=== PATIENT | male | born 1985 | race American Indian/Alaskan Native ===

== ENCOUNTER 2017-05-27 00:40 | Emergency (ER) | payer OTHER ==
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
[2017-05-27] MEDS ORDERED: MOTRIN PO ONE (06:50)
[2017-05-27 07:13] VITALS: BP 103/79
[2017-05-27] MEDS ORDERED: BOOSTRIX IM ONE (07:36)
[2017-05-27] MEDS ORDERED: BENADRYL IM ONE (07:36)
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
== END 2017-05-27 10:06 | disposition home or self-care (01) ==
LOC: ED 00:40
DX: S01.81XA Laceration without foreign body of other part of head, initial encounter (principal); S20.211A Contusion of right front wall of thorax, initial encounter; S39.012A Strain of muscle, fascia and tendon of lower back, initial encounter; Z88.8 Allergy status to other drugs, medicaments and biological substances; Y04.0XXA Assault by unarmed brawl or fight, initial encounter; Y93.89 Activity, other specified; Y99.8 Other external cause status; Y92.89 Other specified places as the place of occurrence of the external cause
CPT/HCPCS: 12013; 70450; 71046; 72100; 72125; 90471; 90715; 96372; 99284; J1200

== ENCOUNTER 2018-04-19 07:15 | Emergency (ER) | payer OTHER ==
--- NOTE | 2018-04-19 07:41 | Emergency Department Report ---
ED Psych HPI - General Stated Complaint: MH Time Seen by Provider: 04/19/18 07:20 Source: patient Mode of arrival: Ambulatory Limitations: No Limitations - History of Present Illness Initial Comments: 32-year-old male with a past medical history of seizures, schizoaffective disor umesh, and psychosis presents to the Hospital complains of suicidal ideation. Patient resides at [facility] and people overheard him talking to himself and expressing suicidal thoughts. Patient does not seem to have a plan at this time. He says about 4-5 months ago he cut his arm with a razor in attempt to kill himself. He is having auditory hallucinations and feels like his suicidal thoughts or building since last night. He denies physical complaints. He hasn't had his medications in 24 hours because he ran out but otherwise has been compliant. - Related Data Home Medications Medication Instructions Recorded Confirmed Last Taken TEGretol 04/19/18 Unknown Trihexyphenidyl [Artane Tab] 5 mg PO BID 04/19/18 04/19/18 Unknown ZyPREXA 04/19/18 Unknown buPROPion [Wellbutrin] 100 mg PO BID 04/19/18 04/19/18 Unknown Allergies Allergy/AdvReac Type Severity Reaction Status Date / Time benztropine [From Cogentin] Allergy Unknown Verified 04/19/18 07:38 diphenhydramine Allergy Unknown Verified 04/19/18 07:38 [From Benadryl] fluphenazine [From Prolixin] Allergy Unknown Verified 04/19/18 07:38 haloperidol [From Haldol] Allergy Unknown Verified 05/27/17 02:29 ziprasidone [From Geodon] Allergy Unknown Verified 04/19/18 07:38 ED Review of Systems ROS: Stated complaint: MH Other details as noted in HPI Comment: All other systems reviewed and negative ED Past Medical Hx - Past Medical History Hx Seizures: Yes Hx Psychiatric Treatment: (Psychosis) - Social History Smoking Status: Unknown if ever smoked Substance Use Type: Alcohol - Medications Home Medications: Home Medications Medication Instructions Recorded Confirmed Last Taken Type TEGretol 04/19/18 Unknown History Trihexyphenidyl [Artane Tab] 5 mg PO BID 04/19/18 04/19/18 Unknown History ZyPREXA 04/19/18 Unknown History buPROPion [Wellbutrin] 100 mg PO BID 04/19/18 04/19/18 Unknown History ED Physical Exam - Other Other exam information: General: No limitations, patient is alert in no acute distress Head exam: Atraumatic, normocephalic Eyes exam: Normal appearance ENT: Moist mucous membrane Neck exam: Normal inspection, full range of motion, no meningismus nontender Respiratory exam: Clear to auscultation bilateral, no wheezes, rales, crackles Cardiovascular: Normal rate and rhythm, normal heart sounds Abdomen: Soft, nondistended, and nontender, with normal bowel sounds, no rebound, or guarding Extremity: Full range of motion normal inspection no deformity Back: Normal Inspection, full range of motion, no tenderness Neurologic: Alert, oriented x3, cranial nerves intact, no motor or sensory deficit Psychiatric: Hyperverbal, cooperative, psychosis Skin: Warm, dry, intact ED Course Vital Signs 04/19/18 08:49 Temperature 98.7 F Pulse Rate 107 H Respiratory 18 Rate Blood Pressure 145/86 [Left] O2 Sat by Pulse 99 Oximetry ED Medical Decision Making - Lab Data Result diagrams: 04/19/18 07:54 04/19/18 07:54 Lab Results 04/19/18 04/19/18 04/19/18 Range/Units 07:54 07:54 07:54 WBC 5.3 (4.5-11.0) K/mm3 RBC 4.68 (3.65-5.03) M/mm3 Hgb 14.8 (11.8-15.2) gm/dl Hct 43.6 (35.5-45.6) % MCV 93 (84-94) fl MCH 32 (28-32) pg MCHC 34 (32-34) % RDW 13.4 (13.2-15.2) % Plt Count 187 (140-440) K/mm3 Lymph % (Auto) 24.3 (13.4-35.0) % Leslie % (Auto) 10.8 H (0.0-7.3) % Eos % (Auto) 9.5 H (0.0-4.3) % Baso % (Auto) 0.9 (0.0-1.8) % Lymph # 1.3 (1.2-5.4) K/mm3 Leslie # 0.6 (0.0-0.8) K/mm3 Eos # 0.5 H (0.0-0.4) K/mm3 Baso # 0.0 (0.0-0.1) K/mm3 Seg Neutrophils % 54.5 (40.0-70.0) % Seg Neutrophils # 2.9 (1.8-7.7) K/mm3 Sodium 141 (137-145) mmol/L Potassium 3.9 (3.6-5.0) mmol/L Chloride 103.7 (98-107) mmol/L Carbon Dioxide 28 (22-30) mmol/L Anion Gap 13 mmol/L BUN 9 (9-20) mg/dL Creatinine 1.0 (0.8-1.5) mg/dL Estimated GFR > 60 ml/min BUN/Creatinine Ratio 9 % Glucose 75 (75-100) mg/dL Calcium 8.7 (8.4-10.2) mg/dL Urine Color (Yellow) Urine Turbidity (Clear) Urine pH (5.0-7.0) Ur Specific [place] (1.003-1.030) Urine Protein (Negative) mg/dL Urine Glucose (UA) (Negative) mg/dL Urine Ketones (Negative) mg/dL Urine Blood (Negative) Urine Nitrite (Negative) Urine Bilirubin (Negative) Urine Urobilinogen (<2.0) mg/dL Ur Leukocyte Esterase (Negative) Urine WBC (Auto) (0.0-6.0) /HPF Urine RBC (Auto) (0.0-6.0) /HPF Salicylates < 0.3 L (2.8-20.0) mg/dL Urine Opiates Screen Urine Methadone Screen Acetaminophen (10.0-30.0) ug/mL Ur Barbiturates Screen Ur Phencyclidine Scrn Ur Amphetamines Screen U Benzodiazepines Scrn Urine Cocaine Screen U Marijuana (THC) Screen Drugs of Abuse Note Plasma/Serum Alcohol (0-0.07) % 04/19/18 04/19/18 04/19/18 Range/Units 07:54 07:54 09:44 WBC (4.5-11.0) K/mm3 RBC (3.65-5.03) M/mm3 Hgb (11.8-15.2) gm/dl Hct (35.5-45.6) % MCV (84-94) fl MCH (28-32) pg MCHC (32-34) % RDW (13.2-15.2) % Plt Count (140-440) K/mm3 Lymph % (Auto) (13.4-35.0) % Leslie % (Auto) (0.0-7.3) % Eos % (Auto) (0.0-4.3) % Baso % (Auto) (0.0-1.8) % Lymph # (1.2-5.4) K/mm3 Leslie # (0.0-0.8) K/mm3 Eos # (0.0-0.4) K/mm3 Baso # (0.0-0.1) K/mm3 Seg Neutrophils % (40.0-70.0) % Seg Neutrophils # (1.8-7.7) K/mm3 Sodium (137-145) mmol/L Potassium (3.6-5.0) mmol/L Chloride (98-107) mmol/L Carbon Dioxide (22-30) mmol/L Anion Gap mmol/L BUN (9-20) mg/dL Creatinine (0.8-1.5) mg/dL Estimated GFR ml/min BUN/Creatinine Ratio % Glucose (75-100) mg/dL Calcium (8.4-10.2) mg/dL Urine Color Yellow (Yellow) Urine Turbidity Clear (Clear) Urine pH 6.0 (5.0-7.0) Ur Specific [place] 1.018 (1.003-1.030) Urine Protein <15 mg/dl (Negative) mg/dL Urine Glucose (UA) Neg (Negative) mg/dL Urine Ketones Neg (Negative) mg/dL Urine Blood Neg (Negative) Urine Nitrite Neg (Negative) Urine Bilirubin Neg (Negative) Urine Urobilinogen < 2.0 (<2.0) mg/dL Ur Leukocyte Esterase Neg (Negative) Urine WBC (Auto) < 1.0 (0.0-6.0) /HPF Urine RBC (Auto) < 1.0 (0.0-6.0) /HPF Salicylates (2.8-20.0) mg/dL Urine Opiates Screen Urine Methadone Screen Acetaminophen < 5.0 L (10.0-30.0) ug/mL Ur Barbiturates Screen Ur Phencyclidine Scrn Ur Amphetamines Screen U Benzodiazepines Scrn Urine Cocaine Screen U Marijuana (THC) Screen Drugs of Abuse Note Plasma/Serum Alcohol < 0.01 (0-0.07) % 04/19/18 Range/Units 09:44 WBC (4.5-11.0) K/mm3 RBC (3.65-5.03) M/mm3 Hgb (11.8-15.2) gm/dl Hct (35.5-45.6) % MCV (84-94) fl MCH (28-32) pg MCHC (32-34) % RDW (13.2-15.2) % Plt Count (140-440) K/mm3 Lymph % (Auto) (13.4-35.0) % Leslie % (Auto) (0.0-7.3) % Eos % (Auto) (0.0-4.3) % Baso % (Auto) (0.0-1.8) % Lymph # (1.2-5.4) K/mm3 Leslie # (0.0-0.8) K/mm3 Eos # (0.0-0.4) K/mm3 Baso # (0.0-0.1) K/mm3 Seg Neutrophils % (40.0-70.0) % Seg Neutrophils # (1.8-7.7) K/mm3 Sodium (137-145) mmol/L Potassium (3.6-5.0) mmol/L Chloride (98-107) mmol/L Carbon Dioxide (22-30) mmol/L Anion Gap mmol/L BUN (9-20) mg/dL Creatinine (0.8-1.5) mg/dL Estimated GFR ml/min BUN/Creatinine Ratio % Glucose (75-100) mg/dL Calcium (8.4-10.2) mg/dL Urine Color (Yellow) Urine Turbidity (Clear) Urine pH (5.0-7.0) Ur Specific [place] (1.003-1.030) Urine Protein (Negative) mg/dL Urine Glucose (UA) (Negative) mg/dL Urine Ketones (Negative) mg/dL Urine Blood (Negative) Urine Nitrite (Negative) Urine Bilirubin (Negative) Urine Urobilinogen (<2.0) mg/dL Ur Leukocyte Esterase (Negative) Urine WBC (Auto) (0.0-6.0) /HPF Urine RBC (Auto) (0.0-6.0) /HPF Salicylates (2.8-20.0) mg/dL Urine Opiates Screen Presumptive negative Urine Methadone Screen Presumptive negative Acetaminophen (10.0-30.0) ug/mL Ur Barbiturates Screen Presumptive negative Ur Phencyclidine Scrn Presumptive negative Ur Amphetamines Screen Presumptive negative U Benzodiazepines Scrn Presumptive negative Urine Cocaine Screen Presumptive negative U Marijuana (THC) Screen Presumptive negative Drugs of Abuse Note Disclamer Plasma/Serum Alcohol (0-0.07) % - Differential Diagnosis suicidal, homicidal, psychosis Critical Care Time: No Critical care attestation.: If time is entered above; I have spent that time in minutes in the direct care of this critically ill patient, excluding procedure time. ED Disposition Clinical Impression: Acute psychosis, Suicidal ideation, Medical clearance for psychiatric admission Disposition: DC/TX-65 PSY HOSP/PSY UNIT Is pt being admited?: No Condition: Stable Time of Disposition: 14:58 (awaiting acceptance)
[2018-04-19 08:09] LABS: Basophils % (Auto) 0.9 % (0.0-1.8); Eosinophils # (Auto) 0.5 K/mm3 (0.0-0.4); Eosinophils % (Auto) 9.5 % (0.0-4.3); Hematocrit 43.6 % (35.5-45.6); Hemoglobin 14.8 gm/dl (11.8-15.2); Lymphocytes # (Auto) 1.3 K/mm3 (1.2-5.4); Lymphocytes % (Auto) 24.3 % (13.4-35.0); Mean Corpuscular HGB Conc 34 % (32-34); Mean Corpuscular Volume 93 fl (84-94); Monocytes # (Auto) 0.6 K/mm3 (0.0-0.8); Monocytes % (Auto) 10.8 % (0.0-7.3); Platelet Count 187 K/mm3 (140-440); Red Blood Count 4.68 M/mm3 (3.65-5.03); Red Cell Distribution Width 13.4 % (13.2-15.2)
[2018-04-19 08:23] LABS: BUN/Creatinine Ratio 9; Blood Urea Nitrogen 9 mg/dL (9-20); Calcium 8.7 mg/dL (8.4-10.2); Hemolysis Index 13
[2018-04-19 09:55] LABS: Bilirubin,Urine NEG (Negative); Blood,Urine NEG (Negative); Color,Urine Yellow (Yellow); Protein,Urine <15 mg/dL mg/dL (Negative); RBC,Urine < 1.0 /HPF (0.0-6.0); Urobilinogen,Urine < 2.0 mg/dL (<2.0); WBC,Urine < 1.0 /HPF (0.0-6.0)
[2018-04-19 10:04] LABS: Amphetamine Screen,Urine PRESUMPTIVE NEGATIVE; Benzodiazepines Screen,Urine PRESUMPTIVE NEGATIVE; Cannabinoid Screen,Urine PRESUMPTIVE NEGATIVE; Cocaine Screen,Urine PRESUMPTIVE NEGATIVE; Methadone Screen,Urine PRESUMPTIVE NEGATIVE; Opiate Screen,Urine PRESUMPTIVE NEGATIVE
[2018-04-19] MEDS: ARTANE PO SCH ×2 (11:00→22:08)
[2018-04-19] MEDS: WELLBUTRIN PO SCH ×2 (11:28→22:08)
[2018-04-20 08:19] VITALS: BP 112/68
[2018-04-20] MEDS: ARTANE PO SCH (10:49)
[2018-04-20] MEDS: WELLBUTRIN PO SCH (10:49)
== END 2018-04-20 12:00 ==
LOC: ED 07:15
DX: F23 Brief psychotic disorder (principal); F29 Unspecified psychosis not due to a substance or known physiological condition; Z88.8 Allergy status to other drugs, medicaments and biological substances; Z88.7 Allergy status to serum and vaccine
CPT/HCPCS: 36415; 80048; 80307; 81001; 85025; 99285; G0480; 80320

== ENCOUNTER 2019-07-30 16:51 | Emergency (ER) | payer SELFPAY ==
[2019-07-30 18:17] LABS: Bilirubin,Urine NEG (Negative); Blood,Urine NEG (Negative); Color,Urine Yellow (Yellow); Protein,Urine <15 mg/dL mg/dL (Negative); Urobilinogen,Urine < 2.0 mg/dL (<2.0)
[2019-07-30 18:24] LABS: Amphetamine Screen,Urine PRESUMPTIVE NEGATIVE; Benzodiazepines Screen,Urine PRESUMPTIVE NEGATIVE; Cannabinoid Screen,Urine PRESUMPTIVE NEGATIVE; Cocaine Screen,Urine PRESUMPTIVE NEGATIVE; Methadone Screen,Urine PRESUMPTIVE NEGATIVE; Opiate Screen,Urine PRESUMPTIVE NEGATIVE
[2019-07-30 18:42] LABS: Hematocrit 45.5 % (35.5-45.6); Hemoglobin 15.2 gm/dl (11.8-15.2); Mean Corpuscular HGB Conc 33 % (32-34); Mean Corpuscular Volume 94 fl (84-94); Platelet Count 208 K/mm3 (140-440); Red Blood Count 4.85 M/mm3 (3.65-5.03)
[2019-07-30 18:59] LABS: BUN/Creatinine Ratio 8; Blood Urea Nitrogen 9 mg/dL (9-20); Calcium 9.6 mg/dL (8.4-10.2); Hemolysis Index 21
[2019-07-30 20:08] LABS: Total Cells Counted 100
[2019-07-30 20:09] LABS: Platelet Estimate Consistent w Auto; RBC Morphology Normal
[2019-07-30] MEDS ORDERED: LORazepam 2 MG/ML VIAL ONE (20:49)
[2019-07-30] MEDS ORDERED: LORazepam 2 MG/ML VIAL IM ONE (20:50)
[2019-07-30] MEDS: LORazepam 2 MG/ML VIAL IV ONE ×2 (20:51→20:55)
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
[2019-07-31] MEDS: LORazepam 2 MG/ML VIAL IM PRN (13:29)
[2019-07-31] MEDS ORDERED: LORazepam 2 MG/ML VIAL IM ONE ×2 (18:14→20:51)
[2019-07-31] MEDS ORDERED: diphenhydrAMINE 50 MG/ML VIAL ONE (18:14)
[2019-07-31] MEDS ORDERED: ETOMIDATE 20 MG/10 ML INJ IV ONE (21:13)
[2019-07-31] MEDS ORDERED: ROCURONIUM 50 MG/5 ML INJ IV ONE (21:14)
[2019-08-01 07:43] VITALS: BP 118/70
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
[2019-08-01] MEDS ORDERED: HALOPERIDOL LACTATE 5 MG/1 ML INJ IM PRN (11:00)
[2019-08-01] MEDS ORDERED: PROMETHAZINE 25 MG TAB PO SCH (11:00)
[2019-08-01] MEDS: LORazepam 2 MG/ML VIAL IM PRN ×2 (11:02→17:33)
[2019-08-01] MEDS ORDERED: PROMETHAZINE 25 MG TAB PO ONE (12:06)
[2019-08-01] MEDS ORDERED: traZODone 50 MG TAB PO SCH ×2 (13:00→22:00)
[2019-08-01] MEDS ORDERED: TRIHEXYPHENIDYL 2 MG TAB PO SCH (14:00)
--- NOTE | 2019-08-01 16:40 | Emergency Department Report ---
Blank Doc - Documentation Documentation: Pt has been accepted by [facility] EMS here to transport patient.
[2019-08-01] MEDS ORDERED: DIVALPROEX DR 500 MG TAB PO SCH (22:00)
== END 2019-08-01 17:35 ==
LOC: EEVIPCON 16:51 → ED 16:51
DX: F23 Brief psychotic disorder (principal); R56.9 Unspecified convulsions; J45.909 Unspecified asthma, uncomplicated; F17.200 Nicotine dependence, unspecified, uncomplicated; Z79.899 Other long term (current) drug therapy; Z88.8 Allergy status to other drugs, medicaments and biological substances
CPT/HCPCS: 36415; 80048; 80307; 81001; 85007; 85025; 96372; 99285; J1200; J1630; J2060; Q0169; 80320; G0480

== ENCOUNTER 2019-08-14 23:04 | Emergency (ER) | payer SELFPAY ==
[2019-08-14 23:57] LABS: Benzodiazepines Screen,Urine PRESUMPTIVE NEGATIVE; Methadone Screen,Urine PRESUMPTIVE NEGATIVE; Opiate Screen,Urine PRESUMPTIVE NEGATIVE
[2019-08-14 23:58] LABS: Bilirubin,Urine NEG (Negative); Blood,Urine NEG (Negative); Color,Urine Yellow (Yellow); Mucus,Urine FEW /HPF; Protein,Urine <15 mg/dL mg/dL (Negative); Urobilinogen,Urine < 2.0 mg/dL (<2.0)
[2019-08-15 00:15] LABS: BUN/Creatinine Ratio 18; Blood Urea Nitrogen 18 mg/dL (9-20); Calcium 9.2 mg/dL (8.4-10.2); Hemolysis Index 13
[2019-08-15 00:16] LABS: Basophils # (Auto) 0.1 K/mm3 (0.0-0.1); Basophils % (Auto) 1.2 % (0.0-1.8); Eosinophils % (Auto) 12.1 % (0.0-4.3); Hematocrit 43.4 % (35.5-45.6); Hemoglobin 14.8 gm/dl (11.8-15.2); Lymphocytes # (Auto) 2.2 K/mm3 (1.2-5.4); Lymphocytes % (Auto) 26.9 % (13.4-35.0); Mean Corpuscular HGB Conc 34 % (32-34); Mean Corpuscular Volume 93 fl (84-94); Monocytes # (Auto) 0.9 K/mm3 (0.0-0.8); Monocytes % (Auto) 11.3 % (0.0-7.3); Platelet Count 208 K/mm3 (140-440); Red Blood Count 4.69 M/mm3 (3.65-5.03); Red Cell Distribution Width 13.9 % (13.2-15.2)
[2019-08-15 00:16] LABS: Amphetamine Screen,Urine PRESUMPTIVE POSITIVE; Cannabinoid Screen,Urine PRESUMPTIVE POSITIVE; Cocaine Screen,Urine PRESUMPTIVE POSITIVE
--- NOTE | 2019-08-15 03:47 | Emergency Department Report ---
ED Psych HPI - General Chief Complaint: Psych Stated Complaint: HEARING VOICES Time Seen by Provider: 08/15/19 03:31 Source: patient Mode of arrival: Ambulatory - History of Present Illness Initial Comments: Patient is a 34-year-old male that presents emergency room with complaints of suicidal ideations, depression, hallucinations. Patient states his symptoms started 2 weeks ago. Patient states she has been taking his medications for 2 weeks. Patient states that he symptoms are becoming more strong and worsening. Patient states that he is having auditory and visual hallucinations. Patient states he is also anxious. Patient states he is feels paranoid and that his mo od keeps changing. Patient states that he has a history of depression psychosis and anxiety. Patient denies homicidal ideations. Patient states his been using drugs lately. Patient states he is using cocaine and marijuana. Patient denies recent travel. Patient denies recent international travel. Patient denies exposure to the novel coronavirus. Patient denies sick contacts. Patient denies fever and chills. Patient denies cough. Patient denies diarrhea. Patient denies coming in contact with anybody with symptoms of the novel coronavirus. MD Complaint: suicidal ideation, feels depressed -: Sudden Associated Psychiatric Symptoms: depression, suicidal ideation, racing thoughts, auditory hallucinations, visual hallucinations History of same: Yes Quality: constant Improves With: none Worsens With: none Context: not taking psychiatric Associated Symptoms: denies: confusion, headache, shortness of breath, nausea, vomiting, syncope, insomnia If Self Harm: admits thoughts of, has plan - Related Data Home Medications Medication Instructions Recorded Confirmed Last Taken buPROPion [Wellbutrin] 350 mg PO QDAY 04/19/18 08/01/19 07/30/19 trihexyphenidyL [Artane Tab] 5 mg PO BID 04/19/18 08/01/19 07/30/19 Divalproex [Naveed ESPINOZA] 250 mg PO 08/01/19 07/30/19 Allergies Allergy/AdvReac Type Severity Reaction Status Date / Time benztropine [From Cogentin] Allergy Unknown Verified 04/19/18 07:38 diphenhydramine Allergy Unknown Verified 04/19/18 07:38 [From Benadryl] fluphenazine [From Prolixin] Allergy Unknown Verified 04/19/18 07:38 haloperidol [From Haldol] Allergy Unknown Verified 05/27/17 02:29 ziprasidone [From Geodon] Allergy Unknown Verified 04/19/18 07:38 ED Review of Systems ROS: Stated complaint: HEARING VOICES Other details as noted in HPI Constitutional: denies: chills, fever Eyes: denies: eye pain, eye discharge, vision change ENT: denies: ear pain, throat pain Respiratory: denies: cough, shortness of breath, wheezing Cardiovascular: denies: chest pain, palpitations Endocrine: no symptoms reported Gastrointestinal: denies: abdominal pain, nausea, diarrhea Genitourinary: denies: urgency, dysuria Musculoskeletal: denies: back pain, joint swelling, arthralgia Skin: denies: rash, lesions Neurological: denies: headache, weakness, paresthesias Psychiatric: anxiety, depression, auditory hallucinations, visual hallucinations, suicidal thoughts Hematological/Lymphatic: denies: easy bleeding, easy bruising ED Past Medical Hx - Past Medical History Previous Medical History?: Yes Hx Seizures: Yes Hx Psychiatric Treatment: (Psychosis, DEPRESSION, ANXIETY) Hx Asthma: Yes - Surgical History Past Surgical History?: No - Family History Family history: no significant - Social History Smoking Status: Current Every Day Smoker Substance Use Type: Alcohol, Cocaine, Marijuana, Methamphetamines - Medications Home Medications: Home Medications Medication Instructions Recorded Confirmed Last Taken Type buPROPion [Wellbutrin] 350 mg PO QDAY 04/19/18 08/01/19 07/30/19 History trihexyphenidyL [Artane Tab] 5 mg PO BID 04/19/18 08/01/19 07/30/[address] [DepaKOTE DR] 250 mg PO 08/01/19 07/30/19 History ED Physical Exam - General Limitations: No Limitations General appearance: alert, in no apparent distress - Head Head exam: Present: atraumatic, normocephalic - Eye Eye exam: Present: normal appearance - ENT ENT exam: Present: mucous membranes moist - Neck Neck exam: Present: normal inspection - Respiratory Respiratory exam: Present: normal lung sounds bilaterally. Absent: respiratory distress - Cardiovascular Cardiovascular Exam: Present: regular rate, normal rhythm. Absent: systolic murmur, diastolic murmur, rubs, gallop - GI/Abdominal GI/Abdominal exam: Present: soft, normal bowel sounds - Rectal Rectal exam: Present: deferred - Extremities Exam Extremities exam: Present: normal inspection - Back Exam Back exam: Present: normal inspection - Neurological Exam Neurological exam: Present: alert, oriented X3 - Psychiatric Psychiatric exam: Present: anxious, suicidal ideation - Expanded Psychiatric Exam Expanded Focused psych exam: Present: pressured speech, internal stimuli, paranoid, restlessness, loose associations - Skin Skin exam: Present: warm, dry, intact, normal color. Absent: rash ED Course Vital Signs 08/14/19 23:09 Temperature 97.8 F Pulse Rate 76 Respiratory 20 Rate Blood Pressure 132/80 O2 Sat by Pulse 96 Oximetry - Reevaluation(s) Reevaluation #1: Patient placed on a 1013. I discussed all results and clinical findings with patient. I discussed plan of care with patient. Patient agrees with plan of care. Patient had labs done. Patient is medically clear. Patient is final disposition will come from our psychiatric team. 08/15/19 03:42 ED Medical Decision Making - Lab Data Result diagrams: 08/14/19 23:38 08/14/19 23:38 - Medical Decision Making Patient is a 34-year-old male that presents emergency room with complaints of suicidal ideations, drug use, acute psychosis. Patient placed on a 1013. Patient had a plan to kill himself by overdose. Patient's labs were done and were unremarkable except for polysubstance on his urine drug screen. Patient is medically cleared and his final disposition will come from our psychiatry team. - Differential Diagnosis Psychosis, suicidal ideation, depression, noncompliance. Drug use Critical care attestation.: If time is entered above; I have spent that time in minutes in the direct care of this critically ill patient, excluding procedure time. ED Disposition Clinical Impression: Acute psychosis, Anxiety and depression, Suicidal ideation, Polysubstance abuse Is pt being admited?: No Does the pt Need Aspirin: No Condition: Stable Referrals: PRIMARY CARE, [Primary Care Provider] - 3-5 Days Time of Disposition: 03:47
[2019-08-15 19:56] VITALS: BP 103/56
--- NOTE | 2019-08-16 11:25 | Consultation ---
History of Present Illness - Reason for Consult Consult date: 08/16/19 Reason for consult: SI with plan to OD - History of Present Psychiatric Illness Vance Robles is a 34y/o male patient who presented to the ER for suicidal ideation with a plan to overdose. During my interview with the patient today. He is lying on the stretcher asleep with linen pulled over his head. He arouses after calling his name multiple times. He is oriented x 3. He makes fair eye contact. The patient states he is "depressed." He says "I messed up." The patient states he been doing "cocaine, ecstasy and marijuana." He says "I keep getting opportunities to do right and keep messing up." The patient denies SI/HI at present, stating, "I don't feel suicidal right now. But I was when I came in two days ago." The patient says he "hears voices telling me to do things." He says he has a history of "psychosis disorder, bipolar and anxiety." The patient states he normally takes "wellbutrin and risperdal" but says he's "been off the meds." He says, "I have a problem taking my meds. I don't know why." He denies any past suicide attempts. He also denies any current outpatient treatment. PAST PSYCHIATRIC HISTORY: Diagnoses: psychosis disorder, bipolar and anxiety Suicide attempts or Self-harm behavior: Denies Prior psychiatric hospitalizations: Yes Substance Abuse history: meth, ecstacy, cocaine, marijuana Previous psychiatric medications tried: wellbutrin and risperidal Outpatient treatment: Not currently PAST MEDICAL HISTORY: None reported Family Psychiatric History: None reported or documented SOCIAL HISTORY Current living status: Homeless Highest level of education: 9th grade Employment Status: Unemployed Marital status: Single Legal history: Denies History of abuse: Denies REVIEW OF SYSTEMS Constitutional: Negative for weight loss ENT: Negative for stridor Respiratory: Negative for cough or hemoptysis All other systems reviewed and are negative MENTAL STATUS EXAMINATION General Appearance: Dressed appropriately Behavior: Calm, cooperative. Fair eye contact Mood: "depressed" Affect: congruent with stated mood Speech: Normal tone and pace Thought Process: Goal directed Thought Content: Suicidal Ideation: Denies Homicidal Ideation: Denies Hallucinations: Auditory Delusions: none elicited Insight and Judgment: Limited Memory/Cognition: Limited Assessment Substance Induce Mood Disorder Bipolar Disorder, Current Episode Depressed, with Psychotic Features Plan MEDICATIONS: Risperidone 0.5mg po BID to decrease psychosis Prozac 10mg po daily to decrease underlying depression Trazodone 50mg po qhs to induce sleep Melatonin 5mg po qhs prn insomnia Depakote DR 125mg po BID Risks, benefits and alternatives of medications discussed with the patient, questions answered and consent obtained from patient. PSYCHOTHERAPY: Supportive psychotherapy provided MEDICAL: Per primary team DELIRIUM PRECAUTIONS: Please re-orient patient frequently, keep lights on during the day, and minimize benzodiazepines and opiates as these medications could worsen patient's confusion. PLANT ETIOLOGIST: Per Medical team. DISPOSITION: The patient meets the requirement for acute inpatient psychiatric hospitalization at this time. He may transfer to an acute psychiatric facility once medically clear. The treatment plan was explained to the patient, including benefits and side effects of medications, he verbalizes understanding and agreement of plan. Will continue to follow the patient until he is transferred or his condition improves enough for discharge Thank you for the consult. Please contact with any questions or concerns. Medications and Allergies Allergies Allergy/AdvReac Type Severity Reaction Status Date / Time benztropine [From Cogentin] Allergy Unknown Verified 04/19/18 07:38 diphenhydramine Allergy Unknown Verified 04/19/18 07:38 [From Benadryl] fluphenazine [From Prolixin] Allergy Unknown Verified 04/19/18 07:38 haloperidol [From Haldol] Allergy Unknown Verified 05/27/17 02:29 ziprasidone [From Geodon] Allergy Unknown Verified 04/19/18 07:38 Home Medications Medication Instructions Recorded Confirmed Last Taken Type buPROPion [Wellbutrin] 350 mg PO QDAY 04/19/18 08/01/19 07/30/19 History trihexyphenidyL [Artane Tab] 5 mg PO BID 04/19/18 08/01/19 07/30/[address] [DepaKOTE DR] 250 mg PO 08/01/19 07/30/19 History Mental Status Exam - Vital signs Last Vital Signs Temp 97.7 F 08/16/19 10:19 Pulse 72 08/16/19 10:19 Resp 16 08/16/19 10:19 BP 101/65 08/16/19 10:19 Pulse Ox 99 08/16/19 10:19 Results Result Diagrams: 08/14/19 23:38 08/14/19 23:38 All other labs normal.
[2019-08-16] MEDS ORDERED: risperiDONE 0.25 MG TAB PO SCH (12:00)
[2019-08-16] MEDS ORDERED: FLUoxetine 10 MG TAB PO SCH (12:00)
[2019-08-16] MEDS ORDERED: DIVALPROEX DR 125 MG TAB PO SCH (12:00)
[2019-08-16] MEDS ORDERED: MELATONIN 5 MG TAB PO PRN (22:00)
[2019-08-16] MEDS ORDERED: traZODone 50 MG TAB PO SCH (22:00)
== END 2019-08-16 12:48 ==
LOC: ED 23:04
DX: F23 Brief psychotic disorder (principal); F41.8 Other specified anxiety disorders; R45.851 Suicidal ideations; F19.10 Other psychoactive substance abuse, uncomplicated; R56.9 Unspecified convulsions; J45.909 Unspecified asthma, uncomplicated; F17.200 Nicotine dependence, unspecified, uncomplicated; F12.10 Cannabis abuse, uncomplicated; F14.10 Cocaine abuse, uncomplicated; F15.10 Other stimulant abuse, uncomplicated; Z79.899 Other long term (current) drug therapy; Z88.8 Allergy status to other drugs, medicaments and biological substances
CPT/HCPCS: 36415; 80048; 80307; 80320; 81001; 85025; G0480

== ENCOUNTER 2020-01-22 16:19 | Emergency (ER) | payer SELFPAY | END 2020-01-22 19:00 | disposition left against medical advice (07) | LOC: ED 16:19 | DX: R45.851 Suicidal ideations (principal); Z53.21 Procedure and treatment not carried out due to patient leaving prior to being seen by health care provider ==

== ENCOUNTER 2020-01-23 18:01 | Emergency (ER) | payer SELFPAY ==
[2020-01-23 18:51] LABS: Basophils # (Auto) 0.1 K/mm3 (0.0-0.1); Eosinophils # (Auto) 0.5 K/mm3 (0.0-0.4); Eosinophils % (Auto) 7.4 % (0.0-4.3); Hematocrit 46.2 % (35.5-45.6); Hemoglobin 15.6 gm/dl (11.8-15.2); Lymphocytes # (Auto) 1.2 K/mm3 (1.2-5.4); Lymphocytes % (Auto) 19.2 % (13.4-35.0); Mean Corpuscular HGB Conc 34 % (32-34); Mean Corpuscular Volume 96 fl (84-94); Monocytes # (Auto) 0.6 K/mm3 (0.0-0.8); Monocytes % (Auto) 8.9 % (0.0-7.3); Platelet Count 219 K/mm3 (140-440); Red Blood Count 4.82 M/mm3 (3.65-5.03); Red Cell Distribution Width 14.6 % (13.2-15.2)
[2020-01-23 19:15] LABS: BUN/Creatinine Ratio 10; Blood Urea Nitrogen 11 mg/dL (9-20); Calcium 9.5 mg/dL (8.4-10.2); Hemolysis Index 5
--- NOTE | 2020-01-24 00:42 | Emergency Department Report ---
HPI - General Chief Complaint: Psych Time Seen by Provider: 01/24/20 00:31 - HPI HPI: This is a 34-year-old -Tristanian male who presents to the emergency department with complaint of depression and suicidal ideations. Patient says he has a plan to overdose on medication in order to harm himself. Patient says that he took an unknown amount of Benadryl 2 days ago. He says that he has a diagnosed history of schizoaffective disorder, depression, anxiety, and "psychotic disorder." He does not follow with any particular psychiatrist or therapist. He also has a history of asthma and a seizure disorder. Patient says that he has been feeling depressed as his family just told him "that I burned all of my bridges and I cannot come home." Patient also says that he is grieving, although he did not say for what. Patient admits to some recent i llicit drug use with both marijuana and methamphetamines but says it has been about 48 hours since he last used any drugs. ED Past Medical Hx - Past Medical History Previous Medical History?: Yes Hx Seizures: Yes Hx Psychiatric Treatment: Yes (Psychosis, DEPRESSION, ANXIETY) Hx Asthma: Yes - Surgical History Past Surgical History?: No - Social History Smoking Status: Current Every Day Smoker Substance Use Type: Alcohol, Cocaine, Marijuana, Methamphetamines - Medications Home Medications: Home Medications Medication Instructions Recorded Confirmed Last Taken Type buPROPion [Wellbutrin] 350 mg PO QDAY 04/19/18 08/01/19 07/30/19 History trihexyphenidyL [Artane Tab] 5 mg PO BID 04/19/18 08/01/19 07/30/19 History Divalproex [DepLeny ESPINOZA] 250 mg PO 08/01/19 07/30/19 History ED Review of Systems ROS: Stated complaint: PSYCH Other details as noted in HPI Comment: All other systems reviewed and negative Constitutional: denies: fever Respiratory: denies: cough, shortness of breath Cardiovascular: denies: chest pain, palpitations Gastrointestinal: denies: abdominal pain Musculoskeletal: denies: back pain, arthralgia Neurological: denies: headache, weakness Psychiatric: suicidal thoughts. denies: auditory hallucinations, visual hallucinations Physical Exam - Physical Exam Vital Signs: Vital Signs 01/23/20 01/24/20 18:09 00:25 Temperature 98 F 97.4 F L Pulse Rate 117 H 89 Respiratory 18 16 Rate Blood Pressure 156/117 131/88 [Right] O2 Sat by Pulse 99 100 Oximetry Physical Exam: GENERAL: The patient is well-developed well-nourished. HENT: Normocephalic. Atraumatic. Patient has moist mucous membranes. EYES: Extraocular motions are intact. NECK: Supple. Trachea is midline. CHEST/LUNGS: Clear to auscultation. There is no respiratory distress noted. HEART/CARDIOVASCULAR: Regular. There is no tachycardia. ABDOMEN: Abdomen is soft, nontender. Patient has normal bowel sounds. SKIN: Skin is warm and dry. NEURO: The patient is awake, alert, and oriented. The patient is cooperative. Normal speech. MUSCULOSKELETAL: There is no tenderness or deformity. ED Course Vital Signs 01/23/20 01/24/20 18:09 00:25 Temperature 98 F 97.4 F L Pulse Rate 117 H 89 Respiratory 18 16 Rate Blood Pressure 156/117 131/88 [Right] O2 Sat by Pulse 99 100 Oximetry ED Medical Decision Making - Lab Data Result diagrams: 01/23/20 18:24 01/23/20 18:24 - Medical Decision Making This patient presents to the emergency department with complaint of depression and suicidal ideations with a plan to overdose on medication. For this reason the patient has been made a 1013. Patient's labs are unremarkable including CBC, metabolic panel, blood alcohol level and urine drug screen. Vital signs have been reassuring. Patient will be seen by the psychiatric team in the morning for further disposition. He is medically cleared for psychiatric placement. Critical Care Time: No Critical care attestation.: If time is entered above; I have spent that time in minutes in the direct care of this critically ill patient, excluding procedure time. ED Disposition Clinical Impression: Suicidal ideations, Anxiety and depression Schizoaffective disorder Qualifiers: Schizoaffective disorder type: unspecified Qualified Code(s): F25.9 - Schizoaffective disorder, unspecified Disposition: DC/TX-65 PSY HOSP/PSY UNIT Is pt being admited?: No Time of Disposition: 01:56
[2020-01-24 00:56] LABS: Bilirubin,Urine NEG (Negative); Blood,Urine NEG (Negative); Color,Urine Yellow (Yellow); Mucus,Urine 2+ /HPF; RBC,Urine < 1.0 /HPF (0.0-6.0); Urobilinogen,Urine < 2.0 mg/dL (<2.0)
[2020-01-24 00:58] LABS: Amphetamine Screen,Urine PRESUMPTIVE NEGATIVE; Benzodiazepines Screen,Urine PRESUMPTIVE NEGATIVE; Cannabinoid Screen,Urine PRESUMPTIVE NEGATIVE; Cocaine Screen,Urine PRESUMPTIVE NEGATIVE; Methadone Screen,Urine PRESUMPTIVE NEGATIVE; Opiate Screen,Urine PRESUMPTIVE NEGATIVE
[2020-01-24] MEDS ORDERED: LORazepam 2 MG/ML VIAL ONE (02:44)
[2020-01-24] MEDS ORDERED: LORazepam 2 MG/ML VIAL IM ONE (02:48)
[2020-01-25] MEDS ORDERED: LORazepam 1 MG TAB PO ONE (09:50)
--- NOTE | 2020-01-25 10:16 | Consultation ---
History of Present Illness - Reason for Consult Consult date: 01/25/20 Reason for consult: MHE Requesting physician: LORIE OROZCO - History of Present Psychiatric Illness Per ED Provider: This is a 34-year-old -Lao male who presents to the emergency department with complaint of depression and suicidal ideations. Patient says he has a plan to overdose on medication in order to harm himself. Patient says that he took an unknown amount of Benadryl 2 days ago. He says that he has a diagnosed history of schizoaffective disorder, depression, anxiety, and "psychotic disorder." He does not follow with any particular psychiatrist or therapist. He also has a history of asthma and a seizure disorder. Patient says that he has been feeling depressed as his family just told him "that I burned all of my bridges and I cannot come home." Patient also says that he is grieving, although he did not say for what. Patient admits to some recent illicit drug use with both marijuana and methamphetamines but says it has been about 48 hours since he last used any drugs. Per MHA: Pt is a 34 year old AA male; Per triage note, "Pt. presents c/o SI. Pt. states he planned to OD. Pt. pulled a large bottle of Diphenhydramine and an RX bottle of Bupropion from his pocket. Pt. handed meds over to me and they were put in pt. belongings bag, labeled and put near nurses station. Pt. states he has been "popping them them since yesterday," referring to the Benadryl." Pt carries a diagnosis of Schizoaffective Disorder. Pt has no current mental health providers; last treatment was "a few months ago," at [facility] where pt receives outpatient treatment. Pt has not been compliant with medications or following up with outpatient. "I ran out of my meds." Pt has had multiple inpatient admissions in the past. Pt is alert and oriented x 4. Pt denies AH or VH currently, but pt reports in the past he has had AH and VH. Pt is calm and cooperative but pt reports depression. Pt denies any thoughts or plans to harm others.Pt endorses active SI with a plan to overdose. Pt came in with his medications and turned them over to the triage nurse explaining that he had all of these medications with an intent to kill himself. Pt reports that he has been ingesting benadryl over the past few days. Pt reports grief and lack of stable housing as the contributing factors to SI. Pt reports substance use of THC and meth with last use being 48 hours ago; however, pt tox is negative for any substance use. Pt is currently homeless; pt reports that he was recently told by his family that he has burned all his bridge and unable to return home. HPI Patient is a 34-year-old single homeless unemployed -Lao male with p ast psychiatric history of schizophrenia, PTSD, depression, anxiety and bipolar disorder who presents with chief complaint of suicidal ideations. Patient is well-known to me from prior encounters, today patient endorses taking 2 pills of Benadryl attempt to overdose says he suicidal because of the rehab program was attending prior at ejected him out due to noncompliance and continued substance use, also reports a family rejection due to his behavior and all of this made him feel helpless and hopeless and would like to get mental health evaluation and treatment for stability so he can go back to get a long-term placement. PAST PSYCHIATRIC HISTORY: Diagnoses: Bipolar, schizophrenia, PTSD, depression, anxiety, Suicide attempts or Self-harm behavior: Yes patient at attempted to strangulate self and cut self Prior psychiatric hospitalizations: Yes multiple episodes Substance Abuse history: Years ago Previous psychiatric medications tried: Wellbutrin Depakote Outpatient treatment: Yes, sees Dr. Salomon PAST MEDICAL HISTORY: None reported Family Psychiatric History: None reported or documented SOCIAL HISTORY Marital Status: Single Living Arrangements: Homeless Employment Status: Unemployed Access to guns/weapons: None reported Education: Ninth grade dropout History of Abuse: None reported Legal History: Yes specific details unknown REVIEW OF SYSTEMS Constitutional: Negative for weight loss ENT: Negative for stridor Respiratory: Negative for cough or hemoptysis All other systems reviewed and are negative MENTAL STATUS EXAMINATION General Appearance and Behavior: Age appropriate, good hygiene, wearing appropriate clothes,, good eye contact Cooperation: Participating/engaged, but Guarded Psychomotor Behavior: Increased Psychomotor agitation Mood: depressed Affect and affective range: irritable, labile Thought Process: Circumstantial, Illogical, Pressured, Thought Content: Hallucinations including auditory. Speech: Increased rate and rhythm, pressured, loud volume. Intellectual Functioning: Average Suicidal Ideation: SI Homicidal Ideation: Denies HI Impulse Control: Impaired Insight and Judgment: Limited insight and judgment, Impaired Memory: Normal Attention: Divided attention impaired Orientation: Alert, anxious, Assessment and Plan - Psychiatric problem (3) Schizoaffective disorder Current Visit: Yes Status: Acute RECOMMENDATIONS MEDICATIONS: Risks, benefits and alternatives of medications discussed with the patient, questions answered and consent obtained from patient. PSYCHOTHERAPY: Supportive psychotherapy provided MEDICAL: Per primary team DELIRIUM PRECAUTIONS: Please re-orient patient frequently, keep lights on during the day, and minimize benzodiazepines and opiates as these medications could worsen patient's confusion. 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 Please contact with any questions and/or concerns. Medications and Allergies Allergies Allergy/AdvReac Type Severity Reaction Status Date / Time benztropine [From Cogentin] Allergy Unknown Verified 04/19/18 07:38 fluphenazine [From Prolixin] Allergy Unknown Verified 04/19/18 07:38 haloperidol [From Haldol] Allergy Unknown Verified 05/27/17 02:29 ziprasidone [From Geodon] Allergy Unknown Verified 04/19/18 07:38 Home Medications Medication Instructions Recorded Confirmed Last Taken Type buPROPion [Wellbutrin] 100 mg PO BID 04/19/18 01/24/20 07/30/19 History trihexyphenidyL [Artane Tab] 5 mg PO BID 04/19/18 01/24/20 07/30/19 History Mental Status Exam - Vital signs Last Vital Signs Temp 97.8 F 01/25/20 08:17 Pulse 74 01/25/20 08:17 Resp 20 01/25/20 08:17 BP 129/75 01/25/20 08:17 Pulse Ox 96 01/25/20 08:17 Results Result Diagrams: 01/23/20 18:24 01/23/20 18:24 All other labs normal. Assessment and Plan - Psychiatric problem (1) Schizoaffective disorder Current Visit: Yes Status: Acute Qualifiers: Schizoaffective disorder type: unspecified Qualified Code(s): F25.9 - Schizoaffective disorder, unspecified
[2020-01-25] MEDS ORDERED: buPROPion 100 MG TAB PO SCH (14:00)
[2020-01-25] MEDS: buPROPion SR 150 MG TAB PO SCH (16:32)
[2020-01-26 04:31] VITALS: BP 102/64
--- NOTE | 2020-01-26 10:24 | Progress Note ---
Subjective - Reason for Consult Consult date: 01/26/20 Reason for consult: MHE Requesting physician: LORIE OROZCO - Chief Complaint Chief complaint: Psych Progress Patient seen this AM, says he no longer have suicidal thoughts, homicidal thoughts and no hallucinations but needs help with getting peggy ID, housing issues and also getting a job. REVIEW OF SYSTEMS Constitutional: Negative for weight loss ENT: Negative for stridor Respiratory: Negative for cough or hemoptysis All other systems reviewed and are negative MENTAL STATUS EXAMINATION General Appearance and Behavior: Age appropriate, good hygiene, wearing appropriate clothes,, good eye contact Cooperation: Participating/engaged Psychomotor Behavior: normal Mood: good Affect and affective range: congruent with mood Thought Process: Logical Thought Content: within reality Speech:Normal rhythm, rate and volume Intellectual Functioning: Average Suicidal Ideation: SI Homicidal Ideation: Denies HI Impulse Control: unimpaired Insight and Judgment: normal Memory: Normal Attention: Divided attention impaired Orientation: Alert, anxious, Assessment and Plan - Psychiatric problem (3) Schizoaffective disorder Current Visit: Yes Status: Acute RECOMMENDATIONS MEDICATIONS: Risks, benefits and alternatives of medications discussed with the patient, questions answered and consent obtained from patient. PSYCHOTHERAPY: Supportive psychotherapy provided MEDICAL: Per primary team DELIRIUM PRECAUTIONS: Please re-orient patient frequently, keep lights on during the day, and minimize benzodiazepines and opiates as these medications could worsen patient's confusion. 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 Please contact with any questions and/or concerns. Mental Status Exam - Vital signs Last Vital Signs Temp 97.9 F 01/26/20 02:29 Pulse 80 01/26/20 02:29 Resp 18 01/26/20 02:29 BP 102/64 01/26/20 02:29 Pulse Ox 100 01/26/20 02:29 Assessment and Plan - Patient Problems (1) Schizoaffective disorder Current Visit: Yes Status: Acute Qualifiers: Schizoaffective disorder type: unspecified Qualified Code(s): F25.9 - Schizoaffective disorder, unspecified
[2020-01-26] MEDS: buPROPion SR 150 MG TAB PO SCH ×2 (11:08→16:23)
== END 2020-01-26 18:50 ==
LOC: ED 18:01
DX: F32.9 Major depressive disorder, single episode, unspecified (principal); F41.9 Anxiety disorder, unspecified; F20.9 Schizophrenia, unspecified; J45.909 Unspecified asthma, uncomplicated; F17.200 Nicotine dependence, unspecified, uncomplicated; F12.10 Cannabis abuse, uncomplicated; F14.10 Cocaine abuse, uncomplicated; Z79.899 Other long term (current) drug therapy; Z86.69 Personal history of other diseases of the nervous system and sense organs; Z88.8 Allergy status to other drugs, medicaments and biological substances
CPT/HCPCS: 36415; 80048; 80307; 81001; 85025; 96372; 99284; J2060; 80320; G0480

== ENCOUNTER 2020-01-26 19:09 | Emergency (ER) | payer SELFPAY ==
--- NOTE | 2020-01-26 20:34 | Event Note ---
ED Screening Note Date of service: 01/26/20 Time: 20:33 ED Screening Note: c/o SI without plan This initial assessment/diagnostic orders/clinical plan/treatment(s) is/are subject to change based on patients health status, clinical progression and re- assessment by fellow clinical providers in the ED. Further treatment and workup at subsequent clinical providers discretion. Patient/guardian urged not to elope from the ED as their condition may be serious if not clinically assessed and managed. Initial orders include: labs mental health eval
[2020-01-26 20:44] LABS: Basophils # (Auto) 0.1 K/mm3 (0.0-0.1); Basophils % (Auto) 1.4 % (0.0-1.8); Eosinophils # (Auto) 0.7 K/mm3 (0.0-0.4); Eosinophils % (Auto) 12.5 % (0.0-4.3); Hematocrit 46.3 % (35.5-45.6); Hemoglobin 15.8 gm/dl (11.8-15.2); Lymphocytes # (Auto) 1.8 K/mm3 (1.2-5.4); Lymphocytes % (Auto) 32.5 % (13.4-35.0); Mean Corpuscular HGB Conc 34 % (32-34); Mean Corpuscular Volume 94 fl (84-94); Monocytes # (Auto) 0.5 K/mm3 (0.0-0.8); Monocytes % (Auto) 8.4 % (0.0-7.3); Platelet Count 216 K/mm3 (140-440); Red Blood Count 4.91 M/mm3 (3.65-5.03); Red Cell Distribution Width 13.9 % (13.2-15.2)
[2020-01-26 20:59] LABS: Alanine Aminotransferase 10 units/L (7-56); Albumin 4.4 g/dL (3.9-5); BUN/Creatinine Ratio 13; Blood Urea Nitrogen 12 mg/dL (9-20); Calcium 8.9 mg/dL (8.4-10.2); Hemolysis Index 43
--- NOTE | 2020-01-27 03:36 | Emergency Department Report ---
HPI - General Chief Complaint: Psych Time Seen by Provider: 01/26/20 20:26 - HPI HPI: This is a 34-year-old -Nepalese male who presents to the emergency department with continued complaint of suicidal ideations. Patient has a history of anxiety, depression and a "psychotic disorder." He has a medical history of asthma and seizures. The patient was seen here in the emergency department starting late on 01/23 and was discharged earlier today, 01/25. He was seen by the psychiatric team earlier in the day and ultimately was discharged after the patient expressed that he did not have any further suicidal ideations, any homicidal ideations, and just needed help getting a Mary ID, residents placement and a job. The patient signed back into the emergency department saying that he has suicidal ideations and "I just do not want to live." He denies any homicidal ideations or any hallucinations. ED Past Medical Hx - Past Medical History Previous Medical History?: Yes Hx Seizures: Yes Hx Psychiatric Treatment: Yes (Psychosis, DEPRESSION, ANXIETY) Hx Asthma: Yes - Surgical History Past Surgical History?: No - Social History Smoking Status: Former Smoker Substance Use Type: None - Medications Home Medications: Home Medications Medication Instructions Recorded Confirmed Last Taken Type buPROPion [Wellbutrin] 100 mg PO BID 04/19/18 01/27/20 07/30/19 History trihexyphenidyL [Artane Tab] 5 mg PO BID 04/19/18 01/27/20 07/30/19 History ED Review of Systems ROS: Stated complaint: SUICIDAL IDEATIONS Other details as noted in HPI Comment: All other systems reviewed and negative Constitutional: denies: fever Respiratory: denies: cough, shortness of breath Cardiovascular: denies: chest pain, palpitations Gastrointestinal: denies: abdominal pain Genitourinary: denies: dysuria Musculoskeletal: denies: back pain Neurological: denies: headache, weakness Psychiatric: suicidal thoughts. denies: auditory hallucinations, visual hallucinations, homicidal thoughts Physical Exam - Physical Exam Vital Signs: Vital Signs 01/26/20 20:32 Temperature 97.8 F Pulse Rate 76 Respiratory 18 Rate Blood Pressure 137/92 [Left] O2 Sat by Pulse 98 Oximetry Physical Exam: GENERAL: The patient is well-developed well-nourished. HENT: Normocephalic. Atraumatic. Patient has moist mucous membranes. EYES: Extraocular motions are intact. NECK: Supple. Trachea is midline. CHEST/LUNGS: Clear to auscultation. There is no respiratory distress noted. HEART/CARDIOVASCULAR: Regular. There is no tachycardia. ABDOMEN: Abdomen is soft, nontender. Patient has normal bowel sounds. SKIN: Skin is warm and dry. NEURO: The patient is awake, alert, and oriented. The patient is cooperative. Normal speech. MUSCULOSKELETAL: There is no tenderness or deformity. There is no limitation range of motion. ED Course Vital Signs 01/26/20 20:32 Temperature 97.8 F Pulse Rate 76 Respiratory 18 Rate Blood Pressure 137/92 [Left] O2 Sat by Pulse 98 Oximetry ED Medical Decision Making - Lab Data Result diagrams: 01/26/20 20:35 01/26/20 20:35 - Medical Decision Making This patient signed back in to be seen for a mental health evaluation for depression and suicidal ideations. Patient was just discharged earlier today, Sunday, after being here for 36 to 48 hours for the same complaints. I am aware of the mental health automobile assembler's note saying the same thing. The psychiatric team's note, that led to discharge, had stated that the patient no longer had any suicidal ideations. However, at this time, the patient does say that he is suicidal and therefore the patient has once again been made a 1013. I am aware that there may be secondary gain involved, as the patient does not appear to have any place to go, but an order has been placed for a mental health evaluation/assessment with his active suicidal ideations. The patient's blood work is unremarkable thus far including CBC, metabolic panel and blood alcohol level. We are waiting for a urine sample for urine drug screen and urinalysis. Vital signs are reassuring thus far including being afebrile. The patient will be seen later today by the psychiatric team for further disposition. If they choose to send the patient for inpatient stabilization, I would consider him medically cleared. Critical Care Time: No Critical care attestation.: If time is entered above; I have spent that time in minutes in the direct care of this critically ill patient, excluding procedure time. ED Disposition Clinical Impression: Suicidal ideations Disposition: DC/TX-65 PSY HOSP/PSY UNIT Is pt being admited?: No Condition: Stable Time of Disposition: 05:44
--- NOTE | 2020-01-27 08:58 | Consultation ---
History of Present Illness - Reason for Consult Consult date: 01/27/20 Reason for consult: MHE Requesting physician: AMANDA LONDONO - History of Present Psychiatric Illness PER ED PROVIDER: This is a 34-year-old -Congolese male who presents to the emergency department with continued complaint of suicidal ideations. Patient has a history of anxiety, depression and a "psychotic disorder." He has a medical history of asthma and seizures. The patient was seen here in the emergency department starting late on 01/23 and was discharged earlier today, 01/25. He was seen by the psychiatric team earlier in the day and ultimately was discharged after the patient expressed that he did not have any further suicidal ideations, any homicidal ideations, and just needed help getting a Mary ID, residents placement and a job. The patient signed back into the emergency department saying that he has suicidal ideations and "I just do not want to live." He denies any homicidal ideations or any hallucinations. HPI Patient is a 34-year-old single homeless unemployed -Congolese male with past psychiatric history of schizophrenia, PTSD, depression, anxiety and bipolar disorder who presents with chief complaint of suicidal ideations. Patient is well-known to me from prior encounters, yesterday endorses social issues as his main concerns and reason for feeling of hopelessness, address issues of getting ID, homelessness and not wanting skilled nursing. Patient was provided with external resources and informed to go to [facility] but signed back in saying he just wants to . PAST PSYCHIATRIC HISTORY: Diagnoses: Bipolar, schizophrenia, PTSD, depression, anxiety, Suicide attempts or Self-harm behavior: Yes patient at attempted to strangulate self and cut self Prior psychiatric hospitalizations: Yes multiple episodes Substance Abuse history: Years ago Previous psychiatric medications tried: Wellbutrin Depakote Outpatient treatment: Yes, sees Dr. Salomon PAST MEDICAL HISTORY: None reported Family Psychiatric History: None reported or documented SOCIAL HISTORY Marital Status: Single Living Arrangements: Homeless Employment Status: Unemployed Access to guns/weapons: None reported Education: Ninth grade dropout History of Abuse: None reported Legal History: Yes specific details unknown REVIEW OF SYSTEMS Constitutional: Negative for weight loss ENT: Negative for stridor Respiratory: Negative for cough or hemoptysis All other systems reviewed and are negative MENTAL STATUS EXAMINATION General Appearance and Behavior: Age appropriate, good hygiene, wearing appropriate clothes,, good eye contact Cooperation: Participating/engaged, but Guarded Psychomotor Behavior: Psychomotor normal Mood: depressed Affect and affective range: irritable, labile Thought Process: illogical Thought Content: denies, hopelessness, helplessness Speech: Increased rate and rhythm, pressured, loud volume. Intellectual Functioning: Average Suicidal Ideation: SI Homicidal Ideation: Denies HI Impulse Control: Impaired Insight and Judgment: Limited insight and judgment, Impaired Memory: Normal Attention: Divided attention impaired Orientation: Alert, anxious, Assessment and Plan - Psychiatric problem (3) Schizoaffective disorder Current Visit: Yes Status: Acute RECOMMENDATIONS MEDICATIONS: Risks, benefits and alternatives of medications discussed with the patient, questions answered and consent obtained from patient. PSYCHOTHERAPY: Supportive psychotherapy provided MEDICAL: Per primary team DELIRIUM PRECAUTIONS: Please re-orient patient frequently, keep lights on during the day, and minimize benzodiazepines and opiates as these medications could worsen patient's confusion. 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 Please contact with any questions and/or concerns. Medications and Allergies Allergies Allergy/AdvReac Type Severity Reaction Status Date / Time benztropine [From Cogentin] Allergy Unknown Verified 04/19/18 07:38 fluphenazine [From Prolixin] Allergy Unknown Verified 04/19/18 07:38 haloperidol [From Haldol] Allergy Unknown Verified 05/27/17 02:29 ziprasidone [From Geodon] Allergy Unknown Verified 04/19/18 07:38 Home Medications Medication Instructions Recorded Confirmed Last Taken Type buPROPion [Wellbutrin] 100 mg PO BID 04/19/18 01/24/20 07/30/19 History trihexyphenidyL [Artane Tab] 5 mg PO BID 04/19/18 01/24/20 07/30/19 History Mental Status Exam - Vital signs Last Vital Signs Temp 97.8 F 01/27/20 03:09 Pulse 87 01/27/20 03:09 Resp 18 01/27/20 03:09 BP 138/89 01/27/20 03:09 Pulse Ox 100 01/27/20 03:09 Results Result Diagrams: 01/26/20 20:35 01/26/20 20:35 Abnormal lab results 01/26/20 01/26/20 01/26/20 Range/Units 20:35 20:35 20:35 Hgb 15.8 H (11.8-15.2) gm/dl Hct 46.3 H (35.5-45.6) % [place] % (Auto) 8.4 H (0.0-7.3) % Eos % (Auto) 12.5 H (0.0-4.3) % Eos # (Auto) 0.7 H (0.0-0.4) K/mm3 Salicylates < 0.3 L (2.8-20.0) mg/dL Acetaminophen 5.0 L (10.0-30.0) ug/mL All other labs normal.
[2020-01-27] MEDS: SERTRALINE 50 MG TAB PO SCH (14:33)
[2020-01-27 15:14] LABS: Amorphous Crystals,Urine Few; Bilirubin,Urine NEG (Negative); Blood,Urine NEG (Negative); Color,Urine Yellow (Yellow); Protein,Urine <15 mg/dL mg/dL (Negative)
[2020-01-27 15:20] LABS: Amphetamine Screen,Urine PRESUMPTIVE NEGATIVE; Benzodiazepines Screen,Urine PRESUMPTIVE NEGATIVE; Cannabinoid Screen,Urine PRESUMPTIVE NEGATIVE; Cocaine Screen,Urine PRESUMPTIVE NEGATIVE; Methadone Screen,Urine PRESUMPTIVE NEGATIVE; Opiate Screen,Urine PRESUMPTIVE NEGATIVE
--- NOTE | 2020-01-28 10:42 | Progress Note ---
Subjective - Reason for Consult Consult date: 01/28/20 Reason for consult: MHE Requesting physician: AMANDA LONDONO - Chief Complaint Chief complaint: Psych Progress Patient seen today, reports still feeling suicidal, disturbed sleep, restless and hopeless. REVIEW OF SYSTEMS Constitutional: Negative for weight loss ENT: Negative for stridor Respiratory: Negative for cough or hemoptysis All other systems reviewed and are negative MENTAL STATUS EXAMINATION General Appearance and Behavior: Age appropriate, good hygiene, wearing appropriate clothes,, good eye contact Cooperation: Participating/engaged, but Guarded Psychomotor Behavior: Psychomotor normal Mood: depressed Affect and affective range: irritable, labile Thought Process: illogical Thought Content: denies, hopelessness, helplessness Speech: Normal rate and volume Intellectual Functioning: Average Suicidal Ideation: SI Homicidal Ideation: Denies HI Impulse Control: Impaired Insight and Judgment: Limited insight and judgment Memory: Normal Attention: Divided attention impaired Orientation: Alert, Assessment and Plan - Psychiatric problem (3) Schizoaffective disorder Current Visit: Yes Status: Acute RECOMMENDATIONS MEDICATIONS: Risks, benefits and alternatives of medications discussed with the patient, questions answered and consent obtained from patient. PSYCHOTHERAPY: Supportive psychotherapy provided MEDICAL: Per primary team DELIRIUM PRECAUTIONS: Please re-orient patient frequently, keep lights on during the day, and minimize benzodiazepines and opiates as these medications could worsen patient's confusion. DIRECTOR OF LITIGATION: Yes, DISPOSITION: Indication for acute inpatient psychiatric hospitalization at this time for manic episode LEGAL STATUS: 1013 FOLLOW-UP: Will follow Thank you for the consult. Please contact with any questions and/or concerns. Mental Status Exam - Vital signs Last Vital Signs Temp 97.5 F L 01/28/20 02:15 Pulse 81 01/28/20 02:15 Resp 18 01/28/20 02:15 BP 117/77 01/28/20 02:15 Pulse Ox 99 01/28/20 02:15
[2020-01-28] MEDS: ARIPiprazole 15 MG TAB PO SCH (10:48)
[2020-01-28] MEDS: SERTRALINE 50 MG TAB PO SCH (10:48)
[2020-01-29] MEDS: SERTRALINE 50 MG TAB PO SCH (09:56)
[2020-01-29] MEDS: ARIPiprazole 15 MG TAB PO SCH (10:26)
[2020-01-29] MEDS ORDERED: HALOPERIDOL LACTATE 5 MG/1 ML INJ IM PRN (11:27)
[2020-01-29] MEDS ORDERED: BENZTROPINE 2 MG/2 ML INJ IM PRN (11:27)
--- NOTE | 2020-01-29 11:31 | Progress Note ---
Subjective - Reason for Consult Consult date: 01/29/20 Reason for consult: MHE Requesting physician: AMANDA LONDONO - Chief Complaint Chief complaint: Psych Progress Patient seen today, reports still feeling suicidal, disturbed sleep, restless and hopeless. Nurse reports patient has been refusing medications, patient asking for ativan, informed patient it will not administered as its a medication that has no benefit to is current suicidal ideations and concern for abuse. REVIEW OF SYSTEMS Constitutional: Negative for weight loss ENT: Negative for stridor Respiratory: Negative for cough or hemoptysis All other systems reviewed and are negative MENTAL STATUS EXAMINATION General Appearance and Behavior: Age appropriate, good hygiene, wearing appropriate clothes,, good eye contact Cooperation: Participating/engaged, but Guarded Psychomotor Behavior: Psychomotor normal Mood: depressed Affect and affective range: irritable, labile Thought Process: illogical Thought Content: denies, hopelessness, helplessness Speech: Normal rate and volume Intellectual Functioning: Average Suicidal Ideation: SI Homicidal Ideation: Denies HI Impulse Control: Impaired Insight and Judgment: Limited insight and judgment Memory: Normal Attention: Divided attention impaired Orientation: Alert, Assessment and Plan - Psychiatric problem (3) Schizoaffective disorder Current Visit: Yes Status: Acute RECOMMENDATIONS MEDICATIONS: Risks, benefits and alternatives of medications discussed with the patient, questions answered and consent obtained from patient. PSYCHOTHERAPY: Supportive psychotherapy provided MEDICAL: Per primary team DELIRIUM PRECAUTIONS: Please re-orient patient frequently, keep lights on during the day, and minimize benzodiazepines and opiates as these medications could worsen patient's confusion. PROVISIONING ANALYST: Yes, DISPOSITION: Indication for acute inpatient psychiatric hospitalization at this time for manic episode LEGAL STATUS: 1013 FOLLOW-UP: Will follow Thank you for the consult. Please contact with any questions and/or concerns. Mental Status Exam - Vital signs Last Vital Signs Temp 97.7 F 01/29/20 08:00 Pulse 87 01/29/20 08:00 Resp 18 01/29/20 08:00 BP 119/88 01/29/20 08:00 Pulse Ox 99 01/29/20 08:00
[2020-01-29] MEDS: buPROPion 100 MG TAB PO SCH (14:41)
[2020-01-30] MEDS: buPROPion 100 MG TAB PO SCH ×2 (09:18→15:23)
[2020-01-30] MEDS: ARIPiprazole 15 MG TAB PO SCH (10:28)
--- NOTE | 2020-01-30 10:30 | Progress Note ---
Subjective - Reason for Consult Consult date: 01/30/20 Reason for consult: SI - Chief Complaint Chief complaint: Psych Progress During my interview with the patient today, he is awake. He is a/o x 3. He makes poor eye contact. He reports feeling suicidal, and "hopeless." He says he feels as if "suicidal thoughts are getting worse." He says "I just don't want to live anymore." REVIEW OF SYSTEMS Constitutional: Negative for weight loss ENT: Negative for stridor Respiratory: Negative for cough or hemoptysis All other systems reviewed and are negative MENTAL STATUS EXAMINATION General Appearance and Behavior: Age appropriate, good hygiene, wearing appropriate clothes, poor contact Cooperation: Participating/engaged, but Guarded Psychomotor Behavior: Psychomotor normal Mood: depressed, hopeless Affect and affective range: restricted Thought Process: goal directed Thought Content: denies, hopelessness, helplessness Speech: Normal rate and volume Intellectual Functioning: Average Suicidal Ideation: SI Homicidal Ideation: Denies HI Impulse Control: Impaired Insight and Judgment: Limited insight and judgment Memory: Normal Orientation: Alert, Assessment and Plan (3) Schizoaffective disorder Current Visit: Yes Status: Acute RECOMMENDATIONS MEDICATIONS: Increased Abilify 20mg po daily Risks, benefits and alternatives of medications discussed with the patient, questions answered and consent obtained from patient. PSYCHOTHERAPY: Supportive psychotherapy provided MEDICAL: Per primary team DELIRIUM PRECAUTIONS: Please re-orient patient frequently, keep lights on during the day, and minimize benzodiazepines and opiates as these medications could worsen patient's confusion. 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 Please contact with any questions and/or concerns. Mental Status Exam - Vital signs Last Vital Signs Temp 98.0 F 01/30/20 00:50 Pulse 98 H 01/30/20 00:50 Resp 18 01/30/20 00:50 BP 138/89 01/30/20 00:50 Pulse Ox 99 01/30/20 00:50
[2020-01-30] MEDS: diphenhydrAMINE 50 MG/ML VIAL IM PRN ×2 (11:27→17:11)
--- NOTE | 2020-01-31 09:39 | Progress Note ---
Subjective - Reason for Consult Consult date: 01/31/20 Reason for consult: SI - Chief Complaint Chief complaint: The patient's medical record was reviewed and the patient's progress was discussed with the nursing staff. The nurse note states the patient sitting in chair began to clutch his neck, this nurse asked the patient why was he clutching his neck. The patient stated that he was tired of feeling like hurting himself. Nurse note also states the patient states the noise is agitating him. During my interview with the patient he is asleep. He easily arouses. He is calm and cooperative. He makes poor eye contact. His affect is flat. He is paranoid and verbalizes hallucinations. He says "I think the people on the t.v. is talking to me." The patient says, "flashbacks. I did wrong. I have guilt." He says "like, karma, somebody is coming to get me." The patient says, "I don't care anymore. I just don't care about living." He says, "I'll pop pills, cut myself, choke, I just don't care." REVIEW OF SYSTEMS Constitutional: Negative for weight loss ENT: Negative for stridor Respiratory: Negative for cough or hemoptysis All other systems reviewed and are negative MENTAL STATUS EXAMINATION General Appearance and Behavior: Age appropriate, good hygiene, wearing appropriate clothes, poor contact, flat affect Cooperation: Participating/engaged, but Guarded Psychomotor Behavior: Psychomotor normal Mood: depressed, hopeless Affect and affective range: flat Thought Process: goal directed Thought Content: hopelessness, hallucinations Speech: Normal rate and volume Suicidal Ideation: SI with plan to "pop pills, cut, choke" Homicidal Ideation: Denies HI Impulse Control: Impaired Insight and Judgment: Limited insight and judgment Memory: Normal Orientation: Alert, Assessment and Plan (3) Schizoaffective disorder Current Visit: Yes Status: Acute RECOMMENDATIONS MEDICATIONS: Start Depakote DR 125mg po BID Start Trazodone 50mg po qhs Risks, benefits and alternatives of medications discussed with the patient, questions answered and consent obtained from patient. PSYCHOTHERAPY: Supportive psychotherapy provided MEDICAL: Per primary team DELIRIUM PRECAUTIONS: Please re-orient patient frequently, keep lights on during the day, and minimize benzodiazepines and opiates as these medications could worsen patient's confusion. LABEL SEWER: Yes, DISPOSITION: Indication for acute inpatient psychiatric hospitalization at this time for manic episode LEGAL STATUS: 1013 FOLLOW-UP: Will follow Thank you for the consult. Please contact with any questions and/or concerns. Mental Status Exam - Vital signs Last Vital Signs Temp 97.9 F 01/31/20 01:00 Pulse 86 01/31/20 01:00 Resp 20 01/31/20 01:00 BP 138/80 01/31/20 01:00 Pulse Ox 97 01/31/20 01:00
[2020-01-31] MEDS: diphenhydrAMINE 50 MG/ML VIAL IM PRN ×3 (10:51→21:41)
[2020-01-31] MEDS: ARIPiprazole 10 MG TAB PO SCH (10:51)
[2020-01-31] MEDS: DIVALPROEX DR 125 MG TAB PO SCH ×2 (10:51→21:38)
[2020-01-31] MEDS: buPROPion 100 MG TAB PO SCH ×2 (12:00→15:01)
[2020-01-31] MEDS: traZODone 50 MG TAB PO SCH (21:38)
[2020-02-01] MEDS: buPROPion 100 MG TAB PO SCH ×2 (09:14→14:43)
[2020-02-01] MEDS: ARIPiprazole 10 MG TAB PO SCH (09:56)
[2020-02-01] MEDS: DIVALPROEX DR 125 MG TAB PO SCH (09:56)
[2020-02-01] MEDS ORDERED: HALOPERIDOL LACTATE 5 MG/1 ML INJ IM PRN (11:11)
--- NOTE | 2020-02-01 11:12 | Progress Note ---
Subjective - Reason for Consult Consult date: 02/01/20 Reason for consult: SI - Chief Complaint Chief complaint: The patient's medical record was reviewed and the patient's progress was discussed with the nursing staff. The nurse note states the patient is awakened by tapping his leg for him to take morning meds. Pt became agitated and began verbally threatening staff and began using profanity telling staff that he "will fuck y'all up" "pussy ass hoes" and that he is "gonna start breaking shit." Nena Allan called and staff responded. During my interview with the patient is standing in the hallway screaming and cursing the nurse. He is beating his hand in his fist. The patient was easily redirected when I called his name and asked him to calm down. He said "yes, ma'am." He becomes agitated again in the isolation room, but calms down again as I start to talk and redirect him. The patient says one of the other patient's and the noise get him agitated. He denies hallucinations at this time. He verbalizes feeling "suicidal and don't even care anymore." The patient gave two number to call, his father, Harshad and his mother, Olivier. Neither person answered. Left message. REVIEW OF SYSTEMS Constitutional: Negative for weight loss ENT: Negative for stridor Respiratory: Negative for cough or hemoptysis All other systems reviewed and are negative MENTAL STATUS EXAMINATION General Appearance and Behavior: Age appropriate, good hygiene, wearing appropriate clothes, poor contact, flat affect, agitated, angry Cooperation: Participating/engaged, but Guarded Mood: hopeless Affect and affective range: flat Thought Process: goal directed Thought Content: hopelessness Speech: Normal rate and volume Suicidal Ideation: SI Homicidal Ideation: Denies HI Impulse Control: Impaired Insight and Judgment: Limited insight and judgment Memory: Normal Orientation: Alert, Assessment and Plan (3) Schizoaffective disorder Current Visit: Yes Status: Acute RECOMMENDATIONS MEDICATIONS: Increased Depakote DR 250mg po BID Increased Risperidone 0.5mg po BID Risks, benefits and alternatives of medications discussed with the patient, questions answered and consent obtained from patient. PSYCHOTHERAPY: Supportive psychotherapy provided MEDICAL: Per primary team DELIRIUM PRECAUTIONS: Please re-orient patient frequently, keep lights on during the day, and minimize benzodiazepines and opiates as these medications could worsen patient's confusion. FORTUNE TELLER: Yes, DISPOSITION: Indication for acute inpatient psychiatric hospitalization at this time for manic episode LEGAL STATUS: 1013 FOLLOW-UP: Will follow Thank you for the consult. Please contact with any questions and/or concerns. Mental Status Exam - Vital signs Last Vital Signs Temp 97.9 F 02/01/20 07:48 Pulse 101 H 02/01/20 07:48 Resp 16 02/01/20 07:48 BP 131/89 02/01/20 07:48 Pulse Ox 99 02/01/20 07:48
[2020-02-01] MEDS: diphenhydrAMINE 50 MG/ML VIAL IM PRN ×2 (13:30→21:30)
[2020-02-01] MEDS: traZODone 50 MG TAB PO SCH (21:32)
[2020-02-01] MEDS: DIVALPROEX DR 250 MG TAB PO SCH (21:32)
[2020-02-02 02:23] VITALS: BP 114/94
[2020-02-02] MEDS: diphenhydrAMINE 50 MG/ML VIAL IM PRN (04:15)
[2020-02-02] MEDS: buPROPion 100 MG TAB PO SCH (10:00)
[2020-02-02] MEDS: ARIPiprazole 10 MG TAB PO SCH (10:14)
[2020-02-02] MEDS: DIVALPROEX DR 250 MG TAB PO SCH (10:14)
--- NOTE | 2020-02-02 11:29 | Progress Note ---
Subjective - Reason for Consult Consult date: 02/02/20 Reason for consult: SI - Chief Complaint Chief complaint: The patient's medical record was reviewed and the patient's progress was discussed with the nursing staff. The nurse caring for the patient states she has not had any problems out of him. He's been sleeping, have been calm and cooperative and has expressed no thoughts of SI/HI, A/V hallucinations. During my interview with the patient he is lying down. He is asleep, but easily arouses. He is calm and cooperative. He says he feels "okay, a lot better than yesterday." The patient states he "Slept good." He denies SI/HI or hallucinations of any kind. The patient says he muscles seem to lock up after taking antipsychotics. He says the benadryl helps him and makes it easier for him to take the medication. Advised the patient I would give him his prescriptions with two weeks of benadryl until he can follow up with outpatient. REVIEW OF SYSTEMS Constitutional: Negative for weight loss ENT: Negative for stridor Respiratory: Negative for cough or hemoptysis All other systems reviewed and are negative MENTAL STATUS EXAMINATION General Appearance and Behavior: Age appropriate, good hygiene, wearing appropriate clothes, fair eye contact, calm and cooperative Cooperation: Participating/engaged, but Guarded Mood: "okay, better" Affect and affective range: Congruent with stated mood Thought Process: goal directed Thought Content: logical Speech: Normal rate and volume Suicidal Ideation: SI Homicidal Ideation: Denies HI Hallucinations: Denies Delusions: None elicited Impulse Control: Limited Insight and Judgment: Limited insight and judgment Memory: Normal Orientation: Alert, Assessment and Plan (3) Schizoaffective disorder Current Visit: Yes Status: Acute RECOMMENDATIONS D/C 1013 MEDICATIONS: Depakote DR 250mg po BID Abilify 20mg po daily Trazodone 50mg po qhs Wellbutrin SR 100mg po BID Benadryl 25mg po daily prn Risks, benefits and alternatives of medications discussed with the patient, questions answered and consent obtained from patient. PSYCHOTHERAPY: Supportive psychotherapy provided MEDICAL: Per primary team DELIRIUM PRECAUTIONS: Please re-orient patient frequently, keep lights on during the day, and minimize benzodiazepines and opiates as these medications could worsen patient's confusion. 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 The patient may discharge home once medically clear. He understands that if any self harm thoughts or behaviors or any fear of endangerment are to arise he is to seek immediate assistance including but not limited to the crisis hotline, 911, ER. The assistant coach to further discuss safety plan The assistant coach is to give the patient resources for outpatient psychiatry, cognitive behavioral therapy, medication assistance, transportation pass if needed, and [facility] resources Follow up with outpatient psych and primary in 7 to 14 days upon discharge. Will sign off. Thank you for the consult. Please contact with any questions and/or concerns. Mental Status Exam - Vital signs Last Vital Signs Temp 97.6 F 02/02/20 02:04 Pulse 89 02/02/20 02:04 Resp 18 02/02/20 02:04 BP 114/94 02/02/20 02:04 Pulse Ox 99 02/02/20 02:04
--- NOTE | 2020-02-02 12:28 | Event Note ---
Date: 02/02/20 The patient was evaluated in the emergency department for symptoms described in the history of present illness. He/she was evaluated in the context of the global COVID-19 pandemic, which necessitated consideration that the patient might be at risk for infection with the virus that causes COVID-19. Institutional protocols and algorithms that pertain to the evaluation of patients at risk for COVID-19 are in a state of rapid change based on information released by regulatory bodies including the CDC and federal and state organizations. These policies and algorithms were followed during the patient's care in the emergency department. Please note that these policies, procedures and recommendations changed on a rapid basis. Medically cleared by initial ER physician. Patient has been cleared by psychiatry for discharge with outpatient follow-up, and they have refilled home prescriptions. Vital signs, laboratory studies reviewed and are appreciated. Patient does not appear to be in any significant distress at this time. Vital Signs 01/26/20 01/27/20 01/27/20 20:32 03:09 14:15 Temperature 97.8 F 97.8 F Pulse Rate 76 87 83 Respiratory 18 18 18 Rate Blood Pressure Blood Pressure 137/92 138/89 128/89 [Left] O2 Sat by Pulse 98 100 100 Oximetry 01/27/20 01/27/20 01/28/20 15:09 20:23 02:15 Temperature 97.8 F 97.8 F 97.5 F L Pulse Rate 82 85 81 Respiratory 18 18 18 Rate Blood Pressure 110/81 Blood Pressure 122/89 117/77 [Left] O2 Sat by Pulse 98 97 99 Oximetry 01/28/20 01/28/20 01/29/20 10:58 19:25 02:14 Temperature 97.8 F 98.5 F 98.7 F Pulse Rate 95 H 98 H 88 Respiratory 17 20 18 Rate Blood Pressure 132/105 105/77 Blood Pressure 110/84 [Left] O2 Sat by Pulse 99 99 99 Oximetry 01/29/20 01/29/20 01/29/20 08:00 14:20 19:59 Temperature 97.7 F 98.2 F 98.3 F Pulse Rate 87 104 H 101 H Respiratory 18 20 18 Rate Blood Pressure Blood Pressure 119/88 127/84 139/93 [Left] O2 Sat by Pulse 99 99 98 Oximetry 01/30/20 01/30/20 01/30/20 00:50 12:54 19:30 Temperature 98.0 F 97.6 F Pulse Rate 98 H 105 H Respiratory 18 19 18 Rate Blood Pressure Blood Pressure 138/89 129/90 [Left] O2 Sat by Pulse 99 95 98 Oximetry 01/30/20 01/31/20 01/31/20 20:00 01:00 09:59 Temperature 98.3 F 97.9 F 97.7 F Pulse Rate 96 H 86 101 H Respiratory 18 20 20 Rate Blood Pressure Blood Pressure 116/84 138/80 119/79 [Left] O2 Sat by Pulse 100 97 100 Oximetry 01/31/20 01/31/20 02/01/20 10:05 20:18 02:04 Temperature 97.7 F 97.3 F L 98.5 F Pulse Rate 101 H 93 H 91 H Respiratory 20 18 18 Rate Blood Pressure Blood Pressure 119/79 132/87 97/71 [Left] O2 Sat by Pulse 100 99 98 Oximetry 02/01/20 02/01/20 02/01/20 07:48 13:15 20:03 Temperature 97.9 F 97.7 F 97.9 F Pulse Rate 101 H 94 H 96 H Respiratory 16 16 18 Rate Blood Pressure 131/89 126/84 Blood Pressure 115/79 [Left] O2 Sat by Pulse 99 98 99 Oximetry 02/02/20 02:04 Temperature 97.6 F Pulse Rate 89 Respiratory 18 Rate Blood Pressure Blood Pressure 114/94 [Left] O2 Sat by Pulse 99 Oximetry Lab Results 01/26/20 01/26/20 01/26/20 Range/Units 20:35 20:35 20:35 WBC 5.6 (4.5-11.0) K/mm3 RBC 4.91 (3.65-5.03) M/mm3 Hgb 15.8 H (11.8-15.2) gm/dl Hct 46.3 H (35.5-45.6) % MCV 94 (84-94) fl MCH 32 (28-32) pg MCHC 34 (32-34) % RDW 13.9 (13.2-15.2) % Plt Count 216 (140-440) K/mm3 Lymph % (Auto) 32.5 (13.4-35.0) % Luna % (Auto) 8.4 H (0.0-7.3) % Eos % (Auto) 12.5 H (0.0-4.3) % Baso % (Auto) 1.4 (0.0-1.8) % Lymph # (Auto) 1.8 (1.2-5.4) K/mm3 Luna # (Auto) 0.5 (0.0-0.8) K/mm3 Eos # (Auto) 0.7 H (0.0-0.4) K/mm3 Baso # (Auto) 0.1 (0.0-0.1) K/mm3 Seg Neutrophils % 45.2 (40.0-70.0) % Seg Neutrophils # 2.5 (1.8-7.7) K/mm3 Sodium 139 (137-145) mmol/L Potassium 3.8 (3.6-5.0) mmol/L Chloride 104.3 (98-107) mmol/L Carbon Dioxide 23 (22-30) mmol/L Anion Gap 16 mmol/L BUN 12 (9-20) mg/dL Creatinine 0.9 (0.8-1.3) mg/dL Estimated GFR > 60 ml/min BUN/Creatinine Ratio 13 % Glucose 96 (75-100) mg/dL Calcium 8.9 (8.4-10.2) mg/dL Total Bilirubin 0.30 (0.1-1.2) mg/dL AST 12 (5-40) units/L ALT 10 (7-56) units/L Alkaline Phosphatase 52 (35-129) units/L Total Protein 7.4 (6.3-8.2) g/dL Albumin 4.4 (3.9-5) g/dL Albumin/Globulin Ratio 1.5 % Urine Color (Yellow) Urine Turbidity (Clear) Urine pH (5.0-7.0) Ur Specific [place] (1.003-1.030) Urine Protein (Negative) mg/dL Urine Glucose (UA) (Negative) mg/dL Urine Ketones (Negative) mg/dL Urine Blood (Negative) Urine Nitrite (Negative) Urine Bilirubin (Negative) Urine Urobilinogen (<2.0) mg/dL Ur Leukocyte Esterase (Negative) Urine WBC (Auto) (0.0-6.0) /HPF Urine RBC (Auto) (0.0-6.0) /HPF Amorphous Crystals Salicylates < 0.3 L (2.8-20.0) mg/dL Urine Opiates Screen Urine Methadone Screen Acetaminophen (10.0-30.0) ug/mL Ur Barbiturates Screen Ur Phencyclidine Scrn Ur Amphetamines Screen U Benzodiazepines Scrn Urine Cocaine Screen U Marijuana (THC) Screen Drugs of Abuse Note 01/26/20 01/27/20 01/27/20 Range/Units 20:35 Unknown Unknown WBC (4.5-11.0) K/mm3 RBC (3.65-5.03) M/mm3 Hgb (11.8-15.2) gm/dl Hct (35.5-45.6) % MCV (84-94) fl MCH (28-32) pg MCHC (32-34) % RDW (13.2-15.2) % Plt Count (140-440) K/mm3 Lymph % (Auto) (13.4-35.0) % Luna % (Auto) (0.0-7.3) % Eos % (Auto) (0.0-4.3) % Baso % (Auto) (0.0-1.8) % Lymph # (Auto) (1.2-5.4) K/mm3 Luna # (Auto) (0.0-0.8) K/mm3 Eos # (Auto) (0.0-0.4) K/mm3 Baso # (Auto) (0.0-0.1) K/mm3 Seg Neutrophils % (40.0-70.0) % Seg Neutrophils # (1.8-7.7) K/mm3 Sodium (137-145) mmol/L Potassium (3.6-5.0) mmol/L Chloride (98-107) mmol/L Carbon Dioxide (22-30) mmol/L Anion Gap mmol/L BUN (9-20) mg/dL Creatinine (0.8-1.3) mg/dL Estimated GFR ml/min BUN/Creatinine Ratio % Glucose (75-100) mg/dL Calcium (8.4-10.2) mg/dL Total Bilirubin (0.1-1.2) mg/dL AST (5-40) units/L ALT (7-56) units/L Alkaline Phosphatase (35-129) units/L Total Protein (6.3-8.2) g/dL Albumin (3.9-5) g/dL Albumin/Globulin Ratio % Urine Color Yellow (Yellow) Urine Turbidity Cloudy (Clear) Urine pH 8.0 H (5.0-7.0) Ur Specific [place] 1.020 (1.003-1.030) Urine Protein <15 mg/dl (Negative) mg/dL Urine Glucose (UA) Neg (Negative) mg/dL Urine Ketones Neg (Negative) mg/dL Urine Blood Neg (Negative) Urine Nitrite Neg (Negative) Urine Bilirubin Neg (Negative) Urine Urobilinogen 2.0 (<2.0) mg/dL Ur Leukocyte Esterase Neg (Negative) Urine WBC (Auto) 2.0 (0.0-6.0) /HPF Urine RBC (Auto) 1.0 (0.0-6.0) /HPF Amorphous Crystals Few Salicylates (2.8-20.0) mg/dL Urine Opiates Screen Presumptive negative Urine Methadone Screen Presumptive negative Acetaminophen 5.0 L (10.0-30.0) ug/mL Ur Barbiturates Screen Presumptive negative Ur Phencyclidine Scrn Presumptive negative Ur Amphetamines Screen Presumptive negative U Benzodiazepines Scrn Presumptive negative Urine Cocaine Screen Presumptive negative U Marijuana (THC) Screen Presumptive negative Drugs of Abuse Note Disclamer
== END 2020-02-02 13:57 | disposition home or self-care (01) ==
LOC: ED 19:09 → EEVIPCON 19:09 → ED 02-02 13:57
DX: R45.851 Suicidal ideations (principal); F23 Brief psychotic disorder; F41.9 Anxiety disorder, unspecified; F32.89 Other specified depressive episodes; Z87.891 Personal history of nicotine dependence; Z79.899 Other long term (current) drug therapy
CPT/HCPCS: 36415; 80053; 80307; 81001; 85025; 96372; 99284; J1200; 80320; G0480; J1630

== ENCOUNTER 2020-02-04 21:29 | Emergency (ER) | payer SELFPAY ==
[2020-02-04 23:31] LABS: BUN/Creatinine Ratio 14; Blood Urea Nitrogen 14 mg/dL (9-20); Calcium 9.6 mg/dL (8.4-10.2); Hemolysis Index 8
[2020-02-05 00:49] LABS: Basophils # (Auto) 0.2 K/mm3 (0.0-0.1); Basophils % (Auto) 2.3 % (0.0-1.8); Eosinophils # (Auto) 0.5 K/mm3 (0.0-0.4); Eosinophils % (Auto) 7.4 % (0.0-4.3); Hematocrit 43.6 % (35.5-45.6); Hemoglobin 14.6 gm/dl (11.8-15.2); Lymphocytes # (Auto) 1.4 K/mm3 (1.2-5.4); Lymphocytes % (Auto) 21.3 % (13.4-35.0); Mean Corpuscular HGB Conc 34 % (32-34); Mean Corpuscular Volume 93 fl (84-94); Monocytes # (Auto) 0.5 K/mm3 (0.0-0.8); Monocytes % (Auto) 8.2 % (0.0-7.3); Platelet Count 220 K/mm3 (140-440); Red Blood Count 4.67 M/mm3 (3.65-5.03); Red Cell Distribution Width 14.2 % (13.2-15.2)
[2020-02-05 01:29] VITALS: BP 133/83
--- NOTE | 2020-02-05 01:30 | Emergency Department Report ---
ED General Adult HPI - General Chief complaint: Psych Stated complaint: MH EVAL Source: patient Mode of arrival: Ambulatory Limitations: No Limitations - Related Data Home Medications Medication Instructions Recorded Confirmed Last Taken buPROPion [Wellbutrin] 100 mg PO BID 04/19/18 01/27/20 07/30/19 trihexyphenidyL [Artane Tab] 5 mg PO BID 04/19/18 01/27/20 07/30/19 Previous Rx's Medication Instructions Recorded Last Taken Type ARIPiprazole [Abilify] 20 mg PO DAILY #30 tablet 02/02/[address] [Naveed ESPINOZA] 125 mg PO BID #60 tablet 02/02/20 Unknown Rx buPROPion SR [Wellbutrin SR] 100 mg PO BID #60 tab 02/02/20 Unknown Rx diphenhydrAMINE [Benadryl CAP] 25 mg PO DAILY PRN #15 capsule 02/02/20 Unknown Rx traZODone [Desyrel] 50 mg PO QHS #30 tab 02/02/20 Unknown Rx Allergies Allergy/AdvReac Type Severity Reaction Status Date / Time benztropine [From Cogentin] Allergy Unknown Verified 04/19/18 07:38 fluphenazine [From Prolixin] Allergy Unknown Verified 04/19/18 07:38 haloperidol [From Haldol] Allergy Unknown Verified 05/27/17 02:29 ziprasidone [From Geodon] Allergy Unknown Verified 04/19/18 07:38 ED Review of Systems ROS: Stated complaint: EVAL Other details as noted in HPI ED Past Medical Hx - Past Medical History Previous Medical History?: Yes Hx Seizures: Yes Hx Psychiatric Treatment: Yes (Psychosis, DEPRESSION, ANXIETY) Hx Asthma: Yes - Surgical History Past Surgical History?: No - Social History Smoking Status: Unknown if ever smoked Substance Use Type: None - Medications Home Medications: Home Medications Medication Instructions Recorded Confirmed Last Taken Type buPROPion [Wellbutrin] 100 mg PO BID 04/19/18 01/27/20 07/30/19 History trihexyphenidyL [Artane Tab] 5 mg PO BID 04/19/18 01/27/20 07/30/19 History ARIPiprazole [Abilify] 20 mg PO DAILY #30 tablet 02/02/20 Unknown Rx Divalproex [DepaKOTE DR] 125 mg PO BID #60 tablet 02/02/20 Unknown Rx buPROPion SR [Wellbutrin SR] 100 mg PO BID #60 tab 02/02/20 Unknown Rx diphenhydrAMINE [Benadryl CAP] 25 mg PO DAILY PRN #15 capsule 02/02/20 Unknown Rx traZODone [Desyrel] 50 mg PO QHS #30 tab 02/02/20 Unknown Rx ED Physical Exam - General Limitations: No Limitations ED Course Vital Signs 02/04/20 22:05 Temperature 98.0 F Pulse Rate 138 H Respiratory 17 Rate Blood Pressure 133/83 O2 Sat by Pulse 98 Oximetry ED Medical Decision Making - Lab Data Result diagrams: 02/05/20 00:35 02/04/20 22:18 Critical care attestation.: If time is entered above; I have spent that time in minutes in the direct care of this critically ill patient, excluding procedure time. ED Disposition Condition: Stable Referrals: PRIMARY CARE, [Primary Care Provider] - 3-5 Days
--- NOTE | 2020-02-05 01:45 | Emergency Department Report ---
Chief Complaint: Psych Stated Complaint: CHAMP KLINE Time Seen by Provider: 02/05/20 01:30 - HPI History of Present Illness: The patient was evaluated in the emergency department for symptoms described in the history of present illness. He/she was evaluated in the context of the global COVID-19 pandemic, which necessitated consideration that the patient might be at risk for infection with the virus that causes COVID-19. Institutional protocols and algorithms that pertain to the evaluation of patients at risk for COVID-19 are in a state of rapid change based on inform ation released by regulatory bodies including the CDC and federal and state organizations. These policies and algorithms were followed during the patient's care in the emergency department. Please note that these policies, procedures and recommendations changed on a rapid basis. This is a 34-year-old gentleman. He is known to myself previously. He recently stayed in this hospital/emergency department for a rather prolonged stay, and was discharged by myself approximately 2-1/2 days ago. He was seen by the psychiatry team at that time, medically optimized and stabilized, started on outpatient medications, given outpatient referrals. Patient to me makes no complaint of suicidality. He makes no complaint of physical pain. He is awake, walking with a steady gait, somewhat anxious, and while minimally verbally aggressive, is not physically combative, or violent. Screening laboratory studies were ordered prior to my personal evaluation. They reviewed and appreciated. Tachycardia reviewed and appreciated, likely secondary to anxiety/agitation. Patient counseled to continue current outpatient medications, to follow-up with outpatient resources that were recently provided to him, and is always, return if any worsening of his condition. Vital Signs 02/04/20 22:05 Temperature 98.0 F Pulse Rate 138 H Respiratory 17 Rate Blood Pressure 133/83 O2 Sat by Pulse 98 Oximetry Lab Results 02/04/20 02/04/20 02/04/20 Range/Units 22:18 22:18 22:18 WBC (4.5-11.0) K/mm3 RBC (3.65-5.03) M/mm3 Hgb (11.8-15.2) gm/dl Hct (35.5-45.6) % MCV (84-94) fl MCH (28-32) pg MCHC (32-34) % RDW (13.2-15.2) % Plt Count (140-440) K/mm3 Lymph % (Auto) (13.4-35.0) % [place] % (Auto) (0.0-7.3) % Eos % (Auto) (0.0-4.3) % Baso % (Auto) (0.0-1.8) % Lymph # (Auto) (1.2-5.4) K/mm3 [place] # (Auto) (0.0-0.8) K/mm3 Eos # (Auto) (0.0-0.4) K/mm3 Baso # (Auto) (0.0-0.1) K/mm3 Seg Neutrophils % (40.0-70.0) % Seg Neutrophils # (1.8-7.7) K/mm3 Sodium 142 (137-145) mmol/L Potassium 4.1 (3.6-5.0) mmol/L Chloride 102.3 (98-107) mmol/L Carbon Dioxide 25 (22-30) mmol/L Anion Gap 19 mmol/L BUN 14 (9-20) mg/dL Creatinine 1.0 (0.8-1.3) mg/dL Estimated GFR > 60 ml/min BUN/Creatinine Ratio 14 % Glucose 84 (75-100) mg/dL Calcium 9.6 (8.4-10.2) mg/dL Salicylates < 0.3 L (2.8-20.0) mg/dL Acetaminophen 5.0 L (10.0-30.0) ug/mL Plasma/Serum Alcohol (0-0.07) % 02/04/20 02/05/20 Range/Units 22:18 00:35 WBC 6.7 (4.5-11.0) K/mm3 RBC 4.67 (3.65-5.03) M/mm3 Hgb 14.6 (11.8-15.2) gm/dl Hct 43.6 (35.5-45.6) % MCV 93 (84-94) fl MCH 31 (28-32) pg MCHC 34 (32-34) % RDW 14.2 (13.2-15.2) % Plt Count 220 (140-440) K/mm3 Lymph % (Auto) 21.3 (13.4-35.0) % [place] % (Auto) 8.2 H (0.0-7.3) % Eos % (Auto) 7.4 H (0.0-4.3) % Baso % (Auto) 2.3 H (0.0-1.8) % Lymph # (Auto) 1.4 (1.2-5.4) K/mm3 [place] # (Auto) 0.5 (0.0-0.8) K/mm3 Eos # (Auto) 0.5 H (0.0-0.4) K/mm3 Baso # (Auto) 0.2 H (0.0-0.1) K/mm3 Seg Neutrophils % 60.8 (40.0-70.0) % Seg Neutrophils # 4.0 (1.8-7.7) K/mm3 Sodium (137-145) mmol/L Potassium (3.6-5.0) mmol/L Chloride (98-107) mmol/L Carbon Dioxide (22-30) mmol/L Anion Gap mmol/L BUN (9-20) mg/dL Creatinine (0.8-1.3) mg/dL Estimated GFR ml/min BUN/Creatinine Ratio % Glucose (75-100) mg/dL Calcium (8.4-10.2) mg/dL Salicylates (2.8-20.0) mg/dL Acetaminophen (10.0-30.0) ug/mL Plasma/Serum Alcohol < 0.01 (0-0.07) % - Exam Vital Signs: Vital Signs 02/04/20 22:05 Temperature 98.0 F Pulse Rate 138 H Respiratory 17 Rate Blood Pressure 133/83 O2 Sat by Pulse 98 Oximetry MSE screening note: Focused history and physical exam performed. Due to findings the following was ordered: ED Medical Decision Making - Lab Data Result diagrams: 02/05/20 00:35 02/04/20 22:18 ED Disposition for MSE Condition: Stable Referrals: PRIMARY CARE, [Primary Care Provider] - 3-5 Days
== END 2020-02-05 01:30 | disposition home or self-care (01) ==
LOC: ED 21:29
DX: R45.851 Suicidal ideations (principal)
CPT/HCPCS: 36415; 80048; 80320; 85025; 99282; G0480

== ENCOUNTER 2020-02-05 18:33 | Emergency (ER) | payer SELFPAY ==
[2020-02-05 20:06] LABS: Basophils # (Auto) 0.1 K/mm3 (0.0-0.1); Eosinophils # (Auto) 0.5 K/mm3 (0.0-0.4); Eosinophils % (Auto) 6.8 % (0.0-4.3); Hemoglobin 14.8 gm/dl (11.8-15.2); Lymphocytes # (Auto) 1.5 K/mm3 (1.2-5.4); Lymphocytes % (Auto) 19.2 % (13.4-35.0); Mean Corpuscular HGB Conc 35 % (32-34); Mean Corpuscular Volume 92 fl (84-94); Monocytes # (Auto) 0.8 K/mm3 (0.0-0.8); Monocytes % (Auto) 9.8 % (0.0-7.3); Platelet Count 210 K/mm3 (140-440); Red Blood Count 4.55 M/mm3 (3.65-5.03); Red Cell Distribution Width 13.8 % (13.2-15.2)
[2020-02-05 20:13] LABS: Bilirubin,Urine NEG (Negative); Blood,Urine NEG (Negative); Color,Urine Yellow (Yellow); Mucus,Urine FEW /HPF; Urobilinogen,Urine < 2.0 mg/dL (<2.0)
[2020-02-05 20:18] LABS: BUN/Creatinine Ratio 10; Blood Urea Nitrogen 11 mg/dL (9-20); Calcium 9.5 mg/dL (8.4-10.2); Hemolysis Index 13
--- NOTE | 2020-02-05 20:39 | Emergency Department Report ---
ED Psych HPI - General Chief Complaint: Psych Stated Complaint: MH Time Seen by Provider: 02/05/20 19:42 Source: patient Mode of arrival: Ambulatory - History of Present Illness Initial Comments: 34-year-old -[place]ian male with complicated psychiatric history, recent psych admission, discharged yesterday, presented to the ED with flight of ideas, psychosis, talking to himself, agitated, for the past 12 hours. Seen in ED yesterday, stabilized and discharged home, but symptoms returned this morning. He denies any suicidal homicidal ideation, however he is very anxious and hyperverbal. - Related Data Home Medications Medication Instructions Recorded Confirmed Last Taken buPROPion [Wellbutrin] 100 mg PO BID 04/19/18 01/27/20 07/30/19 trihexyphenidyL [Artane Tab] 5 mg PO BID 04/19/18 01/27/20 07/30/19 Previous Rx's Medication Instructions Recorded Last Taken Type ARIPiprazole [Abilify] 20 mg PO DAILY #30 tablet 02/02/[address] [DepaKOTE DR] 125 mg PO BID #60 tablet 02/02/20 Unknown Rx buPROPion SR [Wellbutrin SR] 100 mg PO BID #60 tab 02/02/20 Unknown Rx diphenhydrAMINE [Benadryl CAP] 25 mg PO DAILY PRN #15 capsule 02/02/20 Unknown Rx traZODone [Desyrel] 50 mg PO QHS #30 tab 02/02/20 Unknown Rx Allergies Allergy/AdvReac Type Severity Reaction Status Date / Time benztropine [From Cogentin] Allergy Unknown Verified 02/05/20 18:53 fluphenazine [From Prolixin] Allergy Unknown Verified 02/05/20 18:53 haloperidol [From Haldol] Allergy Unknown Verified 02/05/20 18:53 ziprasidone [From Geodon] Allergy Unknown Verified 02/05/20 18:53 ED Review of Systems ROS: Stated complaint: MH Other details as noted in HPI Comment: All other systems reviewed and negative Gastrointestinal: denies: abdominal pain, nausea, vomiting Genitourinary: denies: urgency Skin: denies: rash Psychiatric: anxiety, depression, auditory hallucinations, visual hallucinations ED Past Medical Hx - Past Medical History Hx Seizures: Yes Hx Psychiatric Treatment: Yes (Psychosis, DEPRESSION, ANXIETY) Hx Asthma: Yes - Social History Smoking Status: Never Smoker Substance Use Type: Marijuana - Medications Home Medications: Home Medications Medication Instructions Recorded Confirmed Last Taken Type buPROPion [Wellbutrin] 100 mg PO BID 04/19/18 01/27/20 07/30/19 History trihexyphenidyL [Artane Tab] 5 mg PO BID 04/19/18 01/27/20 07/30/19 History ARIPiprazole [Abilify] 20 mg PO DAILY #30 tablet 02/02/[address] [DepaKOTE DR] 125 mg PO BID #60 tablet 02/02/20 Unknown Rx buPROPion SR [Wellbutrin SR] 100 mg PO BID #60 tab 02/02/20 Unknown Rx diphenhydrAMINE [Benadryl CAP] 25 mg PO DAILY PRN #15 capsule 02/02/20 Unknown Rx traZODone [Desyrel] 50 mg PO QHS #30 tab 02/02/20 Unknown Rx ED Physical Exam - General Limitations: No Limitations General appearance: alert, in no apparent distress - Head Head exam: Present: atraumatic, normocephalic - Eye Eye exam: Present: normal appearance - ENT ENT exam: Present: mucous membranes moist - Neck Neck exam: Present: normal inspection - Respiratory Respiratory exam: Present: normal lung sounds bilaterally. Absent: respiratory distress - Cardiovascular Cardiovascular Exam: Present: regular rate, normal rhythm. Absent: systolic m urmur, diastolic murmur, rubs, gallop - GI/Abdominal GI/Abdominal exam: Present: soft, normal bowel sounds - Rectal Rectal exam: Present: deferred - Extremities Exam Extremities exam: Present: normal inspection - Back Exam Back exam: Present: normal inspection - Neurological Exam Neurological exam: Present: alert, oriented X3 - Psychiatric Psychiatric exam: Present: agitated, anxious, flat affect, manic - Skin Skin exam: Present: warm, dry, intact, normal color. Absent: rash ED Course Vital Signs 02/05/20 18:55 Temperature 98.0 F Pulse Rate 142 H Respiratory 18 Rate Blood Pressure 144/109 O2 Sat by Pulse 98 Oximetry ED Medical Decision Making - Lab Data Result diagrams: 02/05/20 19:20 02/05/20 19:20 - Medical Decision Making Medically clear for psych placement. Awaiting on placement. Patient received Ativan 2 mg IM for severe agitation, anxiety, hyperverbal. Critical care attestation.: If time is entered above; I have spent that time in minutes in the direct care of this critically ill patient, excluding procedure time. ED Disposition Clinical Impression: Anxiety and depression Schizoaffective disorder Qualifiers: Schizoaffective disorder type: bipolar Qualified Code(s): F25.0 - Schizoaffective disorder, bipolar type Disposition: DC/TX-65 PSY HOSP/PSY UNIT Is pt being admited?: No Does the pt Need Aspirin: No Condition: Stable Referrals: PRIMARY CARE, [Primary Care Provider] - 3-5 Days
[2020-02-05] MEDS ORDERED: LORazepam 2 MG/ML VIAL IM ONE ×2 (20:45→21:05)
[2020-02-05 21:20] LABS: Cannabinoid Screen,Urine PRESUMPTIVE NEGATIVE; Methadone Screen,Urine PRESUMPTIVE NEGATIVE; Opiate Screen,Urine PRESUMPTIVE NEGATIVE
[2020-02-05 21:22] LABS: Benzodiazepines Screen,Urine PRESUMPTIVE NEGATIVE
[2020-02-05 21:23] LABS: Amphetamine Screen,Urine PRESUMPTIVE NEGATIVE
[2020-02-05 21:24] LABS: Cocaine Screen,Urine PRESUMPTIVE NEGATIVE
[2020-02-06 02:05] VITALS: BP 140/90
--- NOTE | 2020-02-06 09:37 | Consultation ---
History of Present Illness - Reason for Consult Consult date: 02/06/20 Reason for consult: MHE Requesting physician: MERON GONZALEZ - History of Present Psychiatric Illness Per ED Provider: 34-year-old -Y[place]i male with complicated psychiatric history, recent psych admission, discharged yesterday, presented to the ED with flight of ideas, psychosis, talking to himself, agitated, for the past 12 hours. Seen in ED yesterday, stabilized and discharged home, but symptoms returned this morning. He denies any suicidal homicidal ideation, however he is very anxious and hyperverbal. HPI Patient is a 34-year-old single homeless unemployed -Y[place]i male with past psychiatric history of schizophrenia, PTSD, depression, anxiety and bipolar disorder who presents with chief complaint of suicidal ideations. Patient is well-known to me from prior encounters, today he endorses bieng suicidal, requesting for specific medications, says he went to [facility] they other day and was given some medications he would like me to continue. PAST PSYCHIATRIC HISTORY: Diagnoses: Bipolar, schizophrenia, PTSD, depression, anxiety, Suicide attempts or Self-harm behavior: Yes patient at attempted to strangulate self and cut self Prior psychiatric hospitalizations: Yes multiple episodes Substance Abuse history: Years ago Previous psychiatric medications tried: Wellbutrin Depakote Outpatient treatment: Yes, sees Dr. Salomon PAST MEDICAL HISTORY: None reported Family Psychiatric History: None reported or documented SOCIAL HISTORY Marital Status: Single Living Arrangements: Homeless Employment Status: Unemployed Access to guns/weapons: None reported Education: Ninth grade dropout History of Abuse: None reported Legal History: Yes specific details unknown REVIEW OF SYSTEMS Constitutional: Negative for weight loss ENT: Negative for stridor Respiratory: Negative for cough or hemoptysis All other systems reviewed and are negative MENTAL STATUS EXAMINATION General Appearance and Behavior: Age appropriate, good hygiene, wearing appropriate clothes,, good eye contact Cooperation: Participating/engaged, but Guarded Psychomotor Behavior: Psychomotor normal Mood: depressed Affect and affective range: irritable, labile Thought Process: illogical Thought Content: denies, hopelessness, helplessness Speech: Increased rate and rhythm, pressured, loud volume. Intellectual Functioning: Average Suicidal Ideation: SI Homicidal Ideation: Denies HI Impulse Control: Impaired Insight and Judgment: Limited insight and judgment, Impaired Memory: Normal Attention: Divided attention impaired Orientation: Alert, anxious, Assessment and Plan - Psychiatric problem (3) Schizoaffective disorder Current Visit: Yes Status: Acute RECOMMENDATIONS The patient is at chronically high risk of SI, due to non hospital modifiable factors homelessness, and lack of income, and previous multilpe visits to this facility with same complaints. Patient was managed in ER for mutlilpe days prior to last discharge with medications none of which was picked up. These risk factors are not currently modifiable with acute inpatient psychiatric hospitalization; the patient is seeking secondary gain and psychiatrically hospitalizing this patient is contraindicated, as it will reinforce maladaptive behaviors of coming to the hospital when he does not have [facility]. CASE WAS DISCUSSED WITH DR. CARTER WHO AGREES WITH DISPOSITION MEDICATIONS: Risks, benefits and alternatives of medications discussed with the patient, questions answered and consent obtained from patient. PSYCHOTHERAPY: Supportive psychotherapy provided MEDICAL: Per primary team DELIRIUM PRECAUTIONS: Please re-orient patient frequently, keep lights on during the day, and minimize benzodiazepines and opiates as these medications could worsen patient's confusion. 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 SAfety discharge LEGAL STATUS: 1013 rescinded FOLLOW-UP: Will sign off Thank you for the consult. Please contact with any questions and/or concerns. Medications and Allergies Allergies Allergy/AdvReac Type Severity Reaction Status Date / Time benztropine [From Cogentin] Allergy Unknown Verified 02/05/20 18:53 fluphenazine [From Prolixin] Allergy Unknown Verified 02/05/20 18:53 haloperidol [From Haldol] Allergy Unknown Verified 02/05/20 18:53 ziprasidone [From Geodon] Allergy Unknown Verified 02/05/20 18:53 Home Medications Medication Instructions Recorded Confirmed Last Taken Type buPROPion [Wellbutrin] 100 mg PO BID 04/19/18 01/27/20 07/30/19 History trihexyphenidyL [Artane Tab] 5 mg PO BID 04/19/18 01/27/20 07/30/19 History ARIPiprazole [Abilify] 20 mg PO DAILY #30 tablet 02/02/[address] [Naveed DR] 125 mg PO BID #60 tablet 02/02/20 Unknown Rx buPROPion SR [Wellbutrin SR] 100 mg PO BID #60 tab 02/02/20 Unknown Rx diphenhydrAMINE [Benadryl CAP] 25 mg PO DAILY PRN #15 capsule 02/02/20 Unknown Rx traZODone [Desyrel] 50 mg PO QHS #30 tab 02/02/20 Unknown Rx Mental Status Exam - Vital signs Last Vital Signs Temp 97.9 F 02/06/20 02:03 Pulse 102 H 02/06/20 02:03 Resp 18 02/06/20 02:03 BP 140/90 02/06/20 02:03 Pulse Ox 100 02/06/20 02:03 Results Result Diagrams: 02/05/20 19:20 02/05/20 19:20 Abnormal lab results 02/05/20 02/05/20 02/05/20 Range/Units 19:20 19:20 19:20 MCH 33 H (28-32) pg MCHC 35 H (32-34) % [place] % (Auto) 9.8 H (0.0-7.3) % Eos % (Auto) 6.8 H (0.0-4.3) % Eos # (Auto) 0.5 H (0.0-0.4) K/mm3 Urine pH (5.0-7.0) Salicylates < 0.3 L (2.8-20.0) mg/dL Acetaminophen 5.0 L (10.0-30.0) ug/mL 02/05/20 Range/Units Unknown MCH (28-32) pg MCHC (32-34) % [place] % (Auto) (0.0-7.3) % Eos % (Auto) (0.0-4.3) % Eos # (Auto) (0.0-0.4) K/mm3 Urine pH 8.0 H (5.0-7.0) Salicylates (2.8-20.0) mg/dL Acetaminophen (10.0-30.0) ug/mL All other labs normal.
== END 2020-02-06 13:23 | disposition home or self-care (01) ==
LOC: ED 18:33
DX: F41.9 Anxiety disorder, unspecified (principal); F32.89 Other specified depressive episodes; F23 Brief psychotic disorder; J45.909 Unspecified asthma, uncomplicated; F12.10 Cannabis abuse, uncomplicated; Z88.6 Allergy status to analgesic agent; Z79.899 Other long term (current) drug therapy
CPT/HCPCS: 36415; 80048; 80307; 80320; 81001; 85025; G0480

== ENCOUNTER 2020-02-06 23:17 | Emergency (ER) | payer SELFPAY ==
[2020-02-07] MEDS ORDERED: IPRATROPIUM/ALBUTEROL SULFATE 3 ML AMPUL.NEB IH ONE (01:44)
== END 2020-02-07 00:15 | disposition left against medical advice (07) ==
LOC: ED 23:17
DX: R10.9 Unspecified abdominal pain (principal); R42 Dizziness and giddiness; Z53.21 Procedure and treatment not carried out due to patient leaving prior to being seen by health care provider

== ENCOUNTER 2020-03-07 19:56 | Emergency (ER) | payer SELFPAY ==
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
[2020-03-07 21:12] LABS: Basophils # (Auto) 0.1 K/mm3 (0.0-0.1); Basophils % (Auto) 2.2 % (0.0-1.8); Eosinophils # (Auto) 0.4 K/mm3 (0.0-0.4); Eosinophils % (Auto) 7.1 % (0.0-4.3); Hematocrit 43.6 % (35.5-45.6); Hemoglobin 14.9 gm/dl (11.8-15.2); Lymphocytes # (Auto) 2.2 K/mm3 (1.2-5.4); Lymphocytes % (Auto) 35.4 % (13.4-35.0); Mean Corpuscular HGB Conc 34 % (32-34); Mean Corpuscular Volume 94 fl (84-94); Monocytes # (Auto) 0.8 K/mm3 (0.0-0.8); Monocytes % (Auto) 12.3 % (0.0-7.3); Platelet Count 196 K/mm3 (140-440); Red Blood Count 4.65 M/mm3 (3.65-5.03); Red Cell Distribution Width 13.7 % (13.2-15.2)
[2020-03-07 21:25] LABS: Bilirubin,Urine NEG (Negative); Blood,Urine NEG (Negative); Color,Urine Yellow (Yellow); Mucus,Urine 1+ /HPF
[2020-03-07 21:32] LABS: Alanine Aminotransferase 10 units/L (7-56); Albumin 4.1 g/dL (3.9-5); BUN/Creatinine Ratio 15; Blood Urea Nitrogen 16 mg/dL (9-20); Calcium 9.2 mg/dL (8.4-10.2); Hemolysis Index 13
[2020-03-07 21:36] LABS: Benzodiazepines Screen,Urine Negative; Methadone Screen,Urine Negative; Opiate Screen,Urine Negative
[2020-03-07 21:51] LABS: Amphetamine Screen,Urine Positive; Cannabinoid Screen,Urine Positive; Cocaine Screen,Urine Positive
--- NOTE | 2020-03-08 10:28 | Emergency Department Report ---
HPI - General Chief Complaint: Psych Time Seen by Provider: 03/07/20 20:30 - HPI HPI: This is a 34-year-old -[place] male, who is well-known to both myself in this department, who presents to the emergency department by PD for a mental health evaluation. The patient was found loitering at a store when the police were called. Patient has a history of bipolar disorder and schizoaffective disorder. He also admits to using methamphetamines and cocaine within the last 3 to 4 days and says that he is "withdrawing." The patient admits to some n onspecific hallucinations and also says that he has suicidal ideations with a plan to run in front of traffic to harm himself. The patient does not follow-up with any particular psychiatrist and is not on any medications for his psychiatric conditions. Patient says that he has attempted drug rehabilitation in the past but "they keep sending me different places." He denies any homicidal ideations. The patient's complaint from his withdrawal is that he feels jittery and "my mind is racing." ED Past Medical Hx - Past Medical History Hx Seizures: Yes Hx Psychiatric Treatment: Yes (Psychosis, DEPRESSION, ANXIETY) Hx Asthma: Yes - Social History Smoking Status: Current Every Day Smoker Substance Use Type: Alcohol, Cocaine, Marijuana, Methamphetamines - Medications Home Medications: Home Medications Medication Instructions Recorded Confirmed Last Taken Type buPROPion [Wellbutrin] 100 mg PO BID 04/19/18 01/27/20 07/30/19 History trihexyphenidyL [Artane Tab] 5 mg PO BID 04/19/18 01/27/20 07/30/19 History ARIPiprazole [Abilify] 20 mg PO DAILY #30 tablet 02/02/[address] [Naveed ESPINOZA] 125 mg PO BID #60 tablet 02/02/20 Unknown Rx buPROPion SR [Wellbutrin SR] 100 mg PO BID #60 tab 02/02/20 Unknown Rx diphenhydrAMINE [Benadryl CAP] 25 mg PO DAILY PRN #15 capsule 02/02/20 Unknown Rx traZODone [Desyrel] 50 mg PO QHS #30 tab 02/02/20 Unknown Rx ED Review of Systems ROS: Stated complaint: SUICIDAL IDEATIONS Other details as noted in HPI Comment: All other systems reviewed and negative Constitutional: denies: chills, fever Eyes: denies: eye pain, vision change ENT: denies: ear pain, throat pain Respiratory: denies: cough, shortness of breath Cardiovascular: denies: chest pain, edema Gastrointestinal: denies: abdominal pain, vomiting Genitourinary: denies: dysuria, discharge Musculoskeletal: denies: joint swelling, arthralgia Neurological: denies: headache, weakness Psychiatric: suicidal thoughts. denies: homicidal thoughts Physical Exam - Physical Exam Vital Signs: Vital Signs 03/07/20 20:40 Temperature 98.0 F Pulse Rate 80 Respiratory 18 Rate Blood Pressure 120/84 [Right] O2 Sat by Pulse 98 Oximetry Physical Exam: GENERAL: The patient is well-developed well-nourished. HENT: Normocephalic. Atraumatic. Patient has moist mucous membranes. EYES: Extraocular motions are intact. NECK: Supple. Trachea is midline. CHEST/LUNGS: Clear to auscultation. There is no respiratory distress noted. HEART/CARDIOVASCULAR: Regular. There is no tachycardia. ABDOMEN: Abdomen is soft, nontender. Patient has normal bowel sounds. SKIN: Skin is warm and dry. NEURO: The patient is awake, alert, and oriented. The patient is cooperative. The patient has no focal neurologic deficits. No slurred speech. MUSCULOSKELETAL: There is no tenderness or deformity. There is no limitation range of motion. PSYCH: Patient has pressured speech. ED Course Vital Signs 03/07/20 20:40 Temperature 98.0 F Pulse Rate 80 Respiratory 18 Rate Blood Pressure 120/84 [Right] O2 Sat by Pulse 98 Oximetry - Reevaluation(s) Reevaluation #1: 03/08/20 10:30 Lab Results 03/07/20 03/07/20 03/07/20 Range/Units 20:49 20:49 20:49 WBC 6.2 (4.5-11.0) K/mm3 RBC 4.65 (3.65-5.03) M/mm3 Hgb 14.9 (11.8-15.2) gm/dl Hct 43.6 (35.5-45.6) % MCV 94 (84-94) fl MCH 32 (28-32) pg MCHC 34 (32-34) % RDW 13.7 (13.2-15.2) % Plt Count 196 (140-440) K/mm3 Lymph % (Auto) 35.4 H (13.4-35.0) % Grayson % (Auto) 12.3 H (0.0-7.3) % Eos % (Auto) 7.1 H (0.0-4.3) % Baso % (Auto) 2.2 H (0.0-1.8) % Lymph # (Auto) 2.2 (1.2-5.4) K/mm3 Grayson # (Auto) 0.8 (0.0-0.8) K/mm3 Eos # (Auto) 0.4 (0.0-0.4) K/mm3 Baso # (Auto) 0.1 (0.0-0.1) K/mm3 Seg Neutrophils % 43.0 (40.0-70.0) % Seg Neutrophils # 2.7 (1.8-7.7) K/mm3 Sodium 139 (137-145) mmol/L Potassium 3.5 L (3.6-5.0) mmol/L Chloride 103.8 (98-107) mmol/L Carbon Dioxide 25 (22-30) mmol/L Anion Gap 14 mmol/L BUN 16 (9-20) mg/dL Creatinine 1.1 (0.8-1.3) mg/dL Estimated GFR > 60 ml/min BUN/Creatinine Ratio 15 % Glucose 115 H (75-100) mg/dL Calcium 9.2 (8.4-10.2) mg/dL Total Bilirubin 0.50 (0.1-1.2) mg/dL AST 16 (5-40) units/L ALT 10 (7-56) units/L Alkaline Phosphatase 54 (35-129) units/L Total Protein 7.3 (6.3-8.2) g/dL Albumin 4.1 (3.9-5) g/dL Albumin/Globulin Ratio 1.3 % Urine Color (Yellow) Urine Turbidity (Clear) Urine pH (5.0-7.0) Ur Specific [place] (1.003-1.030) Urine Protein (Negative) mg/dL Urine Glucose (UA) (Negative) mg/dL Urine Ketones (Negative) mg/dL Urine Blood (Negative) Urine Nitrite (Negative) Urine Bilirubin (Negative) Urine Urobilinogen (<2.0) mg/dL Ur Leukocyte Esterase (Negative) Urine WBC (Auto) (0.0-6.0) /HPF Urine RBC (Auto) (0.0-6.0) /HPF U Epithel Cells (Auto) (0-13.0) /HPF Urine Mucus /HPF Salicylates < 0.3 L (2.8-20.0) mg/dL Urine Opiates Screen Urine Methadone Screen Acetaminophen (10.0-30.0) ug/mL Ur Barbiturates Screen Ur Phencyclidine Scrn Ur Amphetamines Screen U Benzodiazepines Scrn Urine Cocaine Screen U Marijuana (THC) Screen Drugs of Abuse Note Plasma/Serum Alcohol (0-0.07) % 03/07/20 03/07/20 03/07/20 Range/Units 20:49 20:49 Unknown WBC (4.5-11.0) K/mm3 RBC (3.65-5.03) M/mm3 Hgb (11.8-15.2) gm/dl Hct (35.5-45.6) % MCV (84-94) fl MCH (28-32) pg MCHC (32-34) % RDW (13.2-15.2) % Plt Count (140-440) K/mm3 Lymph % (Auto) (13.4-35.0) % Grayson % (Auto) (0.0-7.3) % Eos % (Auto) (0.0-4.3) % Baso % (Auto) (0.0-1.8) % Lymph # (Auto) (1.2-5.4) K/mm3 Grayson # (Auto) (0.0-0.8) K/mm3 Eos # (Auto) (0.0-0.4) K/mm3 Baso # (Auto) (0.0-0.1) K/mm3 Seg Neutrophils % (40.0-70.0) % Seg Neutrophils # (1.8-7.7) K/mm3 Sodium (137-145) mmol/L Potassium (3.6-5.0) mmol/L Chloride (98-107) mmol/L Carbon Dioxide (22-30) mmol/L Anion Gap mmol/L BUN (9-20) mg/dL Creatinine (0.8-1.3) mg/dL Estimated GFR ml/min BUN/Creatinine Ratio % Glucose (75-100) mg/dL Calcium (8.4-10.2) mg/dL Total Bilirubin (0.1-1.2) mg/dL AST (5-40) units/L ALT (7-56) units/L Alkaline Phosphatase (35-129) units/L Total Protein (6.3-8.2) g/dL Albumin (3.9-5) g/dL Albumin/Globulin Ratio % Urine Color Yellow (Yellow) Urine Turbidity Clear (Clear) Urine pH 5.0 (5.0-7.0) Ur Specific [place] 1.032 H (1.003-1.030) Urine Protein 30 mg/dl (Negative) mg/dL Urine Glucose (UA) Neg (Negative) mg/dL Urine Ketones 80 (Negative) mg/dL Urine Blood Neg (Negative) Urine Nitrite Neg (Negative) Urine Bilirubin Neg (Negative) Urine Urobilinogen 2.0 (<2.0) mg/dL Ur Leukocyte Esterase Neg (Negative) Urine WBC (Auto) 1.0 (0.0-6.0) /HPF Urine RBC (Auto) 2.0 (0.0-6.0) /HPF U Epithel Cells (Auto) < 1.0 (0-13.0) /HPF Urine Mucus 1+ /HPF Salicylates (2.8-20.0) mg/dL Urine Opiates Screen Urine Methadone Screen Acetaminophen 5.0 L (10.0-30.0) ug/mL Ur Barbiturates Screen Ur Phencyclidine Scrn Ur Amphetamines Screen U Benzodiazepines Scrn Urine Cocaine Screen U Marijuana (THC) Screen Drugs of Abuse Note Plasma/Serum Alcohol < 0.01 (0-0.07) % 03/07/20 Range/Units Unknown WBC (4.5-11.0) K/mm3 RBC (3.65-5.03) M/mm3 Hgb (11.8-15.2) gm/dl Hct (35.5-45.6) % MCV (84-94) fl MCH (28-32) pg MCHC (32-34) % RDW (13.2-15.2) % Plt Count (140-440) K/mm3 Lymph % (Auto) (13.4-35.0) % Grayson % (Auto) (0.0-7.3) % Eos % (Auto) (0.0-4.3) % Baso % (Auto) (0.0-1.8) % Lymph # (Auto) (1.2-5.4) K/mm3 Grayson # (Auto) (0.0-0.8) K/mm3 Eos # (Auto) (0.0-0.4) K/mm3 Baso # (Auto) (0.0-0.1) K/mm3 Seg Neutrophils % (40.0-70.0) % Seg Neutrophils # (1.8-7.7) K/mm3 Sodium (137-145) mmol/L Potassium (3.6-5.0) mmol/L Chloride (98-107) mmol/L Carbon Dioxide (22-30) mmol/L Anion Gap mmol/L BUN (9-20) mg/dL Creatinine (0.8-1.3) mg/dL Estimated GFR ml/min BUN/Creatinine Ratio % Glucose (75-100) mg/dL Calcium (8.4-10.2) mg/dL Total Bilirubin (0.1-1.2) mg/dL AST (5-40) units/L ALT (7-56) units/L Alkaline Phosphatase (35-129) units/L Total Protein (6.3-8.2) g/dL Albumin (3.9-5) g/dL Albumin/Globulin Ratio % Urine Color (Yellow) Urine Turbidity (Clear) Urine pH (5.0-7.0) Ur Specific [place] (1.003-1.030) Urine Protein (Negative) mg/dL Urine Glucose (UA) (Negative) mg/dL Urine Ketones (Negative) mg/dL Urine Blood (Negative) Urine Nitrite (Negative) Urine Bilirubin (Negative) Urine Urobilinogen (<2.0) mg/dL Ur Leukocyte Esterase (Negative) Urine WBC (Auto) (0.0-6.0) /HPF Urine RBC (Auto) (0.0-6.0) /HPF U Epithel Cells (Auto) (0-13.0) /HPF Urine Mucus /HPF Salicylates (2.8-20.0) mg/dL Urine Opiates Screen Negative Urine Methadone Screen Negative Acetaminophen (10.0-30.0) ug/mL Ur Barbiturates Screen Negative Ur Phencyclidine Scrn Negative Ur Amphetamines Screen Positive U Benzodiazepines Scrn Negative Urine Cocaine Screen Positive U Marijuana (THC) Screen Positive Drugs of Abuse Note Disclamer Plasma/Serum Alcohol (0-0.07) % ED Medical Decision Making - Lab Data Result diagrams: 03/07/20 20:49 03/07/20 20:49 - Medical Decision Making This patient presents to the emergency department with a complaint of suicidal ideations with a plan to run in front of traffic. He has a history of bipolar d isorder and schizoaffective disorder that does not appear to be currently treated with any medication. On top of that, the patient uses/abuses multiple illicit substances including methamphetamines and cocaine. The patient does display some pressured speech but otherwise does not exhibit any acute psychosis at this time. However, secondary to his suicidal ideations with a plan, the patient was made a 1013 by the midlevel provider in triage when he first verbalized his plan. The patient reiterated this plan to me so I do agree with the 1013 and the plan for inpatient stabilization. The patient's labs have been mostly unremarkable except for a UDS positive for methamphetamines, cocaine and marijuana. He also has 80 ketones in the urine showing some mild dehydration. However there is no renal insufficiency, prerenal azotemia, and the patient is able to tolerate oral liquids and rehyd rate himself as necessary. Vital signs have been reassuring throughout his ED course thus far including being afebrile. The patient is waiting for evaluation from the psychiatric assessment team, but at this point I feel the patient is medically cleared for psychiatric placement/inpatient stabilization. Critical Care Time: No Critical care attestation.: If time is entered above; I have spent that time in minutes in the direct care of this critically ill patient, excluding procedure time. ED Disposition Clinical Impression: Suicidal ideations, Bipolar 1 disorder with moderate davy, Polysubstance abuse Schizoaffective disorder Qualifiers: Schizoaffective disorder type: unspecified Qualified Code(s): F25.9 - Schizoaffective disorder, unspecified Disposition: [id number]/[id number] PSY HOSP/PSY UNIT Is pt being admited?: No Condition: Stable Time of Disposition: 10:32
[2020-03-09 02:06] VITALS: BP 101/71
--- NOTE | 2020-03-09 09:51 | Consultation ---
History of Present Illness - Reason for Consult Consult date: 03/09/20 Reason for consult: MHE Requesting physician: AMANDA LONDONO - History of Present Psychiatric Illness Per ED Provider:This is a 34-year-old -[place] male, who is well-known to both myself in this department, who presents to the emergency department by PD for a mental health evaluation. The patient was found loitering at a store when the police were called. Patient has a history of bipolar disorder and schizoaffective disorder. He also admits to using methamphetamines and cocaine within the last 3 to 4 days and says that he is "withdrawing." The patient admits to some nonspecific hallucinations and also says that he has suicidal i deations with a plan to run in front of traffic to harm himself. The patient does not follow-up with any particular psychiatrist and is not on any medications for his psychiatric conditions. Patient says that he has attempted drug rehabilitation in the past but "they keep sending me different places." He denies any homicidal ideations. The patient's complaint from his withdrawal is that he feels jittery and "my mind is racing." HPI Patient is a 34-year-old single homeless unemployed -[place] male with past psychiatric history of schizophrenia, PTSD, depression, anxiety and bipolar disorder who presents with chief complaint of suicidal ideations who is well- known to me from multiple prior encounters at this facility with last known encounter about a month ago. Patient presents today with Kirill ideation, patient reported he has been using drugs lately denies feeling suicidal a lot to kill himself. Patient asked if he picked up the prescription medications he was given last time patient said he did not have any money to pick them up but was able to have funds to buy cocaine and do meth. Patient has a history of chronic drug abuse and use has been given resources for drug rehab programs outpatient with patient does not take any effort in attempt to get himself rehabilitated. PAST PSYCHIATRIC HISTORY: Diagnoses: Bipolar, schizophrenia, PTSD, depression, anxiety, Suicide attempts or Self-harm behavior: Yes patient at attempted to strangulate self and cut self Prior psychiatric hospitalizations: Yes multiple episodes Substance Abuse history: Years ago Previous psychiatric medications tried: Wellbutrin Depakote Outpatient treatment: Yes, sees Dr. Salomon PAST MEDICAL HISTORY: None reported Family Psychiatric History: None reported or documented SOCIAL HISTORY Marital Status: Single Living Arrangements: Homeless Employment Status: Unemployed Access to guns/weapons: None reported Education: Ninth grade dropout History of Abuse: None reported Legal History: Yes specific details unknown REVIEW OF SYSTEMS Constitutional: Negative for weight loss ENT: Negative for stridor Respiratory: Negative for cough or hemoptysis All other systems reviewed and are negative MENTAL STATUS EXAMINATION General Appearance and Behavior: Age appropriate, good hygiene, wearing appropriate clothes,, good eye contact Cooperation: Participating/engaged, but Guarded Psychomotor Behavior: Psychomotor normal Mood: depressed Affect and affective range: irritable, labile Thought Process: illogical Thought Content: denies, hopelessness, helplessness Speech: Increased rate and rhythm, pressured, loud volume. Intellectual Functioning: Average Suicidal Ideation: SI Homicidal Ideation: Denies HI Impulse Control: Impaired Insight and Judgment: Limited insight and judgment, Impaired Memory: Normal Attention: Divided attention impaired Orientation: Alert, anxious, Assessment and Plan - Psychiatric problem (1) Noncompliance with medication regimen Current Visit: Yes Status: Acute (2) Polysubstance abuse Current Visit: Yes Status: Acute (3) Schizoaffective disorder Current Visit: Yes Status: Acute Qualifiers: Schizoaffective disorder type: unspecified Qualified Code(s): F25.9 - Schizoaffective disorder, unspecified RECOMMENDATIONS Again patientUDS was positive for cocaine, and meth. The patient is at chronically SI, has history of medication non compliance, has not used drug rehab resources provided to him from prior multiple visits and has non hospital modifiable factors homelessness, and lack of income, and previous multilpe visits to this facility with same complaints. Patient was managed in ER for mutlilpe days prior to last discharge with medications none of which was picked up. These risk factors are not currently modifiable with acute inpatient psychiatric hospitalization; the patient is seeking secondary gain and psychiatrically hospitalizing this patient is contraindicated, as it will reinforce maladaptive behaviors of coming to the hospital when he does not have longterm. WIll provide homeless longterm resources and drug outpt rehab programs. CASE WAS DISCUSSED WITH DR. CARTER WHO AGREES WITH DISPOSITION MEDICATIONS: Risks, benefits and alternatives of medications discussed with the patient, questions answered and consent obtained from patient. PSYCHOTHERAPY: Supportive psychotherapy provided MEDICAL: Per primary team DELIRIUM PRECAUTIONS: Please re-orient patient frequently, keep lights on during the day, and minimize benzodiazepines and opiates as these medications could worsen patient's confusion. 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 SAfety discharge LEGAL STATUS: 1013 rescinded FOLLOW-UP: Will sign off Thank you for the consult. Please contact with any questions and/or concerns. Medications and Allergies Allergies Allergy/AdvReac Type Severity Reaction Status Date / Time benztropine [From Cogentin] Allergy Unknown Verified 02/05/20 18:53 fluphenazine [From Prolixin] Allergy Unknown Verified 02/05/20 18:53 haloperidol [From Haldol] Allergy Unknown Verified 02/05/20 18:53 ziprasidone [From Geodon] Allergy Unknown Verified 02/05/20 18:53 Home Medications Medication Instructions Recorded Confirmed Last Taken Type ARIPiprazole [Abilify] 20 mg PO DAILY #30 tablet 02/02/20 03/09/[address] [DepaKOTE DR] 125 mg PO BID #60 tablet 02/02/20 03/09/20 Unknown Rx buPROPion SR [Wellbutrin SR] 100 mg PO BID #60 tab 02/02/20 03/09/20 Unknown Rx diphenhydrAMINE [Benadryl CAP] 25 mg PO DAILY PRN #15 capsule 02/02/20 03/09/20 Unknown Rx traZODone [Desyrel] 50 mg PO QHS #30 tab 02/02/20 03/09/20 Unknown Rx Mental Status Exam - Vital signs Last Vital Signs Temp 98.4 F 03/09/20 08:38 Pulse 96 H 03/09/20 08:38 Resp 18 03/09/20 08:38 BP 101/71 03/09/20 02:05 Pulse Ox 100 03/09/20 08:38 Results Result Diagrams: 03/07/20 20:49 03/07/20 20:49 All other labs normal. Assessment and Plan - Psychiatric problem (1) Noncompliance with medication regimen Current Visit: Yes Status: Acute (2) Polysubstance abuse Current Visit: Yes Status: Acute (3) Schizoaffective disorder Current Visit: Yes Status: Acute Qualifiers: Schizoaffective disorder type: unspecified Qualified Code(s): F25.9 - Schizoaffective disorder, unspecified
== END 2020-03-09 11:25 ==
LOC: ED 19:56
DX: F25.0 Schizoaffective disorder, bipolar type (principal); F31.12 Bipolar disorder, current episode manic without psychotic features, moderate; F19.10 Other psychoactive substance abuse, uncomplicated; R45.851 Suicidal ideations; F41.9 Anxiety disorder, unspecified; J45.909 Unspecified asthma, uncomplicated; F17.200 Nicotine dependence, unspecified, uncomplicated; F12.90 Cannabis use, unspecified, uncomplicated; F15.90 Other stimulant use, unspecified, uncomplicated; Z86.69 Personal history of other diseases of the nervous system and sense organs; Z79.899 Other long term (current) drug therapy; Z88.8 Allergy status to other drugs, medicaments and biological substances
CPT/HCPCS: 36415; 80053; 80307; 80320; 81001; 85025; 99284; G0480

== ENCOUNTER 2020-03-11 17:15 | Emergency (ER) | payer SELFPAY ==
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
[2020-03-11 19:30] LABS: Basophils % (Auto) 0.4 % (0.0-1.8); Eosinophils # (Auto) 0.2 K/mm3 (0.0-0.4); Hematocrit 43.2 % (35.5-45.6); Hemoglobin 14.6 gm/dl (11.8-15.2); Lymphocytes # (Auto) 1.2 K/mm3 (1.2-5.4); Lymphocytes % (Auto) 31.8 % (13.4-35.0); Mean Corpuscular HGB Conc 34 % (32-34); Mean Corpuscular Volume 95 fl (84-94); Monocytes # (Auto) 0.3 K/mm3 (0.0-0.8); Monocytes % (Auto) 8.9 % (0.0-7.3); Platelet Count 189 K/mm3 (140-440); Red Blood Count 4.54 M/mm3 (3.65-5.03); Red Cell Distribution Width 13.6 % (13.2-15.2)
[2020-03-11 19:44] LABS: BUN/Creatinine Ratio 8; Blood Urea Nitrogen 6 mg/dL (9-20); Calcium 9.1 mg/dL (8.4-10.2); Hemolysis Index 19
[2020-03-11 20:35] LABS: Amphetamine Screen,Urine Negative; Benzodiazepines Screen,Urine Negative; Cocaine Screen,Urine Negative; Methadone Screen,Urine Negative; Opiate Screen,Urine Negative
[2020-03-11 20:38] LABS: Bilirubin,Urine NEG (Negative); Blood,Urine NEG (Negative); Calcium Oxalate Crystals,Urine 1+; Color,Urine Yellow (Yellow); Mucus,Urine 3+ /HPF
[2020-03-11 20:47] LABS: Cannabinoid Screen,Urine Positive
[2020-03-12 08:07] VITALS: BP 116/75
[2020-03-12] MEDS ORDERED: ALPRAZolam 0.5 MG TAB PO ONE (08:30)
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
== END 2020-03-12 11:10 | disposition home or self-care (01) ==
LOC: ED 17:15
DX: F25.9 Schizoaffective disorder, unspecified (principal); F19.10 Other psychoactive substance abuse, uncomplicated; J45.909 Unspecified asthma, uncomplicated; F17.200 Nicotine dependence, unspecified, uncomplicated; F14.10 Cocaine abuse, uncomplicated; F12.10 Cannabis abuse, uncomplicated
CPT/HCPCS: 36415; 80048; 80307; 80320; 81001; 85025; 99284; G0480

== ENCOUNTER 2020-04-12 22:28 | Emergency (ER) | payer SELFPAY ==
--- NOTE | 2020-04-13 00:10 | Emergency Department Report ---
HPI - General Chief Complaint: Psych Time Seen by Provider: 04/12/20 23:55 - HPI HPI: Room 29 The patient is a 34-year-old male present with a chief complaint of suicidal ideation. The patient states he is felt suicidal for the past 4 to 5 days. When asked if he did anything to hurt himself the patient points to a chronic appearing scar on his left forearm saying that he cut himself several days ago. Patient also admits to chronic neck pain for 1 year. Patient denies trauma ED Past Medical Hx - Past Medical History Previous Medical History?: Yes Hx Seizures: Yes Hx Psychiatric Treatment: Yes (Psychosis, DEPRESSION, ANXIETY) Hx Asthma: Yes - Surgical History Past Surgical History?: No - Family History Family history: no significant - Social History Smoking Status: Current Some Day Smoker Substance Use Type: None (Denies illicit drug use), Alcohol (Occasional) - Medications Home Medications: Home Medications Medication Instructions Recorded Confirmed Last Taken Type ARIPiprazole [Abilify] 20 mg PO DAILY #30 tablet 02/02/20 03/09/[address] [DepaKOTE DR] 125 mg PO BID #60 tablet 02/02/20 03/09/20 Unknown Rx buPROPion SR [Wellbutrin SR] 100 mg PO BID #60 tab 02/02/20 03/09/20 Unknown Rx diphenhydrAMINE [Benadryl CAP] 25 mg PO DAILY PRN #15 capsule 02/02/20 03/09/20 Unknown Rx traZODone [Desyrel] 50 mg PO QHS #30 tab 02/02/20 03/09/20 Unknown Rx ED Review of Systems ROS: Stated complaint: BACK/STOMACH PAIN/HEARING VOICES/MH Other details as noted in HPI Constitutional: no symptoms reported Eyes: denies: eye pain ENT: denies: throat pain Respiratory: no symptoms reported Cardiovascular: denies: chest pain Endocrine: no symptoms reported Gastrointestinal: denies: abdominal pain Genitourinary: denies: dysuria Musculoskeletal: arthralgia Neurological: denies: headache Physical Exam - Physical Exam Vital Signs: Vital Signs 04/12/20 23:31 Temperature 97.7 F Pulse Rate 109 H Respiratory 16 Rate Blood Pressure 137/98 O2 Sat by Pulse 97 Oximetry Physical Exam: GENERAL: The patient is well-developed well-nourished male sitting in chair not appearing to be in acute distress. [] HEENT: Normocephalic. Atraumatic. Extraocular motions are intact. Patient has moist mucous membranes. NECK: Supple. Tenderness to palpation at C7. No step-off CHEST/LUNGS: Clear to auscultation. There is no respiratory distress noted. HEART/CARDIOVASCULAR: Regular. There is no tachycardia. There is no gallop rub or murmur. ABDOMEN: Abdomen is soft, nontender. Patient has normal bowel sounds. There is no abdominal distention. SKIN: There is no rash. There is no edema. There is no diaphoresis. NEURO: The patient is awake, alert, and oriented. The patient is cooperative. The patient has no focal neurologic deficits. The patient has normal speech and gait. MUSCULOSKELETAL: There is no evidence of acute injury. ED Course Vital Signs 04/12/20 23:31 Temperature 97.7 F Pulse Rate 109 H Respiratory 16 Rate Blood Pressure 137/98 O2 Sat by Pulse 97 Oximetry ED Medical Decision Making - Lab Data Result diagrams: 04/13/20 Unknown 04/12/20 23:50 Laboratory Tests 04/12/20 04/12/20 04/12/20 23:50 23:50 23:50 WBC RBC Hgb Hct MCV MCH MCHC RDW Plt Count Lymph % (Auto) [place] % (Auto) Eos % (Auto) Baso % (Auto) Lymph # (Auto) [place] # (Auto) Eos # (Auto) Baso # (Auto) Seg Neutrophils % Seg Neutrophils # Sodium 142 Potassium 4.3 Chloride 101.2 Carbon Dioxide 26 Anion Gap 19 BUN 7 L Creatinine 1.1 Estimated GFR > 60 BUN/Creatinine Ratio 6 Glucose 61 L Calcium 10.3 H Urine Color Urine Turbidity Urine pH Ur Specific [place] Urine Protein Urine Glucose (UA) Urine Ketones Urine Blood Urine Nitrite Urine Bilirubin Urine Urobilinogen Ur Leukocyte Esterase Urine WBC (Auto) Urine RBC (Auto) U Epithel Cells (Auto) Urine Mucus Salicylates < 0.3 L Urine Opiates Screen Urine Methadone Screen Acetaminophen 5.0 L Ur Barbiturates Screen Ur Phencyclidine Scrn Ur Amphetamines Screen U Benzodiazepines Scrn Urine Cocaine Screen U Marijuana (THC) Screen Drugs of Abuse Note Plasma/Serum Alcohol 04/12/20 04/13/20 04/13/20 23:50 00:07 00:07 WBC RBC Hgb Hct MCV MCH MCHC RDW Plt Count Lymph % (Auto) [place] % (Auto) Eos % (Auto) Baso % (Auto) Lymph # (Auto) [place] # (Auto) Eos # (Auto) Baso # (Auto) Seg Neutrophils % Seg Neutrophils # Sodium Potassium Chloride Carbon Dioxide Anion Gap BUN Creatinine Estimated GFR BUN/Creatinine Ratio Glucose Calcium Urine Color Yellow Urine Turbidity Clear Urine pH 6.0 Ur Specific [place] 1.015 Urine Protein <15 mg/dl Urine Glucose (UA) Neg Urine Ketones Neg Urine Blood Neg Urine Nitrite Neg Urine Bilirubin Neg Urine Urobilinogen < 2.0 Ur Leukocyte Esterase Mod Urine WBC (Auto) 18.0 H Urine RBC (Auto) 3.0 U Epithel Cells (Auto) < 1.0 Urine Mucus Few Salicylates Urine Opiates Screen Presumptive negative Urine Methadone Screen Presumptive negative Acetaminophen Ur Barbiturates Screen Presumptive negative Ur Phencyclidine Scrn Presumptive negative Ur Amphetamines Screen Presumptive negative U Benzodiazepines Scrn Presumptive negative Urine Cocaine Screen Presumptive negative U Marijuana (THC) Screen Presumptive positive Drugs of Abuse Note Disclamer Plasma/Serum Alcohol < 0.01 04/13/20 Unknown WBC 7.9 RBC 4.95 Hgb 15.8 H Hct 46.7 H MCV 94 MCH 32 MCHC 34 RDW 14.4 Plt Count 222 Lymph % (Auto) 29.5 [place] % (Auto) 11.4 H Eos % (Auto) 8.5 H Baso % (Auto) 1.3 Lymph # (Auto) 2.3 [place] # (Auto) 0.9 H Eos # (Auto) 0.7 H Baso # (Auto) 0.1 Seg Neutrophils % 49.3 Seg Neutrophils # 3.9 Sodium Potassium Chloride Carbon Dioxide Anion Gap BUN Creatinine Estimated GFR BUN/Creatinine Ratio Glucose Calcium Urine Color Urine Turbidity Urine pH Ur Specific [place] Urine Protein Urine Glucose (UA) Urine Ketones Urine Blood Urine Nitrite Urine Bilirubin Urine Urobilinogen Ur Leukocyte Esterase Urine WBC (Auto) Urine RBC (Auto) U Epithel Cells (Auto) Urine Mucus Salicylates Urine Opiates Screen Urine Methadone Screen Acetaminophen Ur Barbiturates Screen Ur Phencyclidine Scrn Ur Amphetamines Screen U Benzodiazepines Scrn Urine Cocaine Screen U Marijuana (THC) Screen Drugs of Abuse Note Plasma/Serum Alcohol - Differential Diagnosis Suicidal ideation, chronic neck pain Critical care attestation.: If time is entered above; I have spent that time in minutes in the direct care of this critically ill patient, excluding procedure time. ED Disposition Clinical Impression: Suicidal ideation, UTI (urinary tract infection) Disposition: [id number]/TX-65 PSY HOSP/PSY UNIT Is pt being admited?: No Does the pt Need Aspirin: No Condition: Stable Referrals: ARMANDO QUIROZ MD [Primary Care Provider] - 3-5 Days Time of Disposition: 04:37 (Awaiting acceptance)
[2020-04-13 00:20] LABS: Basophils # (Auto) 0.1 K/mm3 (0.0-0.1); Basophils % (Auto) 1.3 % (0.0-1.8); Eosinophils # (Auto) 0.7 K/mm3 (0.0-0.4); Eosinophils % (Auto) 8.5 % (0.0-4.3); Hematocrit 46.7 % (35.5-45.6); Hemoglobin 15.8 gm/dl (11.8-15.2); Lymphocytes # (Auto) 2.3 K/mm3 (1.2-5.4); Lymphocytes % (Auto) 29.5 % (13.4-35.0); Mean Corpuscular HGB Conc 34 % (32-34); Mean Corpuscular Volume 94 fl (84-94); Monocytes # (Auto) 0.9 K/mm3 (0.0-0.8); Monocytes % (Auto) 11.4 % (0.0-7.3); Platelet Count 222 K/mm3 (140-440); Red Blood Count 4.95 M/mm3 (3.65-5.03); Red Cell Distribution Width 14.4 % (13.2-15.2)
[2020-04-13 00:29] LABS: BUN/Creatinine Ratio 6; Blood Urea Nitrogen 7 mg/dL (9-20); Calcium 10.3 mg/dL (8.4-10.2); Hemolysis Index 24
[2020-04-13 00:30] LABS: Amphetamine Screen,Urine PRESUMPTIVE NEGATIVE; Benzodiazepines Screen,Urine PRESUMPTIVE NEGATIVE; Cannabinoid Screen,Urine PRESUMPTIVE POSITIVE; Cocaine Screen,Urine PRESUMPTIVE NEGATIVE; Methadone Screen,Urine PRESUMPTIVE NEGATIVE; Opiate Screen,Urine PRESUMPTIVE NEGATIVE
[2020-04-13 00:39] LABS: Bilirubin,Urine NEG (Negative); Blood,Urine NEG (Negative); Color,Urine Yellow (Yellow); Mucus,Urine FEW /HPF; Protein,Urine <15 mg/dL mg/dL (Negative); Urobilinogen,Urine < 2.0 mg/dL (<2.0)
--- NOTE | 2020-04-13 01:23 | XRay Report ---
XR spine cervical 2-3V HISTORY: Pain at C7 COMPARISON: CT cervical spine 05/27/2017. TECHNIQUE: 3 view(s) of the cervical spine obtained. FINDINGS: Vertebrae: Normal alignment. Vertebral body heights are preserved. C1-C2 and odontoid process are p artially obscured on the open-mouth view. Spondylosis:Mild spondylotic changes. Soft tissues: No prevertebral soft tissue thickening. IMPRESSION: 1. No acute abnormality of the cervical spine. Signer Name: Juan Henriquez MD Signed: 04/13/2020 1:18 AM Workstation Name: [id number]
[2020-04-13] MEDS ORDERED: levoFLOXacin 500 MG TAB PO SCH (04:36)
[2020-04-13 08:37] VITALS: BP 110/86
--- NOTE | 2020-04-13 09:34 | Consultation ---
History of Present Illness - Reason for Consult Consult date: 04/13/20 Reason for consult: agitation - History of Present Psychiatric Illness Per ER documentation "chief complaint of suicidal ideation. The patient states he is felt suicidal for the past 4 to 5 days. When asked if he did anything to hurt himself the patient points to a chronic appearing scar on his left forearm saying that he cut himself several days ago. Patient also admits to chronic neck pain for 1 year. Patient denies trauma." Keely Robles is a 34y/o male patient who is known to me from previous visits. During my interview with the patient today, he is lying down. It is hard to tell what is truly going on with the patient, as his responses are vague. He is irrit able. The patient says he came to the hospital for a "nervous breakdown." He also says he's having neck pain. Although the patient c/o suicidal thoughts in the ER, he denies these thoughts this morning. He denies hallucinations of any kind. He says he's "been having flash backs for about a week." When asked what were the flashbacks, the patient says "I don't know." The patient states he was just admitted to [facility] on [address]. The patient says "I need to go somewhere else." When asked what was going on between now and then, the patient says "I just keep doing wrong even when I don't want to." He denies any illicit drug use. PAST PSYCHIATRIC HISTORY: Diagnoses: Bipolar, schizophrenia, PTSD, depression, anxiety, Suicide attempts or Self-harm behavior: Yes Prior psychiatric hospitalizations: Yes multiple episodes Substance Abuse history: Years ago Previous psychiatric medications tried: Wellbutrin Depakote, abilify Outpatient treatment: Yes PAST MEDICAL HISTORY: None reported Family Psychiatric History: None reported or documented SOCIAL HISTORY Marital Status: Single Living Arrangements: Homeless Employment Status: Unemployed Access to guns/weapons: Denies Education: History of Abuse: Denies Legal History: none reported REVIEW OF SYSTEMS Constitutional: Negative for weight loss ENT: Negative for stridor Respiratory: Negative for cough or hemoptysis All other systems reviewed and are negative MENTAL STATUS EXAMINATION General Appearance and Behavior: Age appropriate, good hygiene, wearing appropriate clothes, cooperative, irritable Cooperation: Participating/engaged Psychomotor Behavior: Psychomotor normal Mood: "I'm okay, but just tired of doing wrong" Affect and affective range: congruent with stated mood Thought Process: goal directed Thought Content: None Speech: Normal rate, volume and rhythm Suicidal Ideation: Denies Homicidal Ideation: Denies Hallucinations: Denies Delusions: Verbalizes paranoia Impulse Control: Limited Insight and Judgment: Limited insight and judgment Memory: Limited Attention: Limited Orientation: Alert, oriented Assessment and Plan (1) Noncompliance with other medical treatments and regimen (2) Schizoaffective Disorder, Chronic Treatment d/c 1013 continue previously prescribed med Sitter: Defer to primary Medical: per primary Disposition: Do not Recommend acute inpatient psychiatric treatment. The patient understands that if SI/HI ideation are to return he is to seek immediate assistance, crisis hotline, 911/ER. Astronomy Department Chair to give safety plan, resources for outpatient, drug rehab, CBT, [facility] resources The patient to follow up with outpatient psych in 7 to 14 days upon discharge He is to abstain from all illicit drug use. He is to comply with all medical regimens, ongoing therapy and outpatient care. Will sign off. Thank you for this consult. Case staffed with Dr. Kearney Medications and Allergies Allergies Allergy/AdvReac Type Severity Reaction Status Date / Time benztropine [From Cogentin] Allergy Unknown Verified 02/05/20 18:53 fluphenazine [From Prolixin] Allergy Unknown Verified 02/05/20 18:53 haloperidol [From Haldol] Allergy Unknown Verified 02/05/20 18:53 ziprasidone [From Geodon] Allergy Unknown Verified 02/05/20 18:53 Home Medications Medication Instructions Recorded Confirmed Last Taken Type diphenhydrAMINE [Benadryl CAP] 25 mg PO DAILY PRN #15 capsule 02/02/20 04/13/20 Unknown Rx Trihexyphenidyl (Nf) [Artane (Nf)] 5 mg PO TID 04/13/20 04/13/20 Unknown History buPROPion SR [Wellbutrin SR] 100 mg PO QDAY 04/13/20 04/13/20 Unknown History Active Meds: Active Medications Levofloxacin (Levofloxacin 500 Mg Tab) 500 mg PO QDAY [facility]; Protocol Stop: 04/19/20 04:36 Last Admin: 04/13/20 04:59 Dose: 500 mg Documented by: Mental Status Exam - Vital signs Last Vital Signs Temp 98.4 F 04/13/20 08:35 Pulse 62 04/13/20 08:35 Resp 18 04/13/20 08:35 BP 110/86 04/13/20 08:35 Pulse Ox 99 04/13/20 08:35 Results Result Diagrams: 04/13/20 Unknown 04/12/20 23:50 Abnormal lab results 04/12/20 04/12/20 04/12/20 Range/Units 23:50 23:50 23:50 Hgb (11.8-15.2) gm/dl Hct (35.5-45.6) % [place] % (Auto) (0.0-7.3) % Eos % (Auto) (0.0-4.3) % [place] # (Auto) (0.0-0.8) K/mm3 Eos # (Auto) (0.0-0.4) K/mm3 BUN 7 L (9-20) mg/dL Glucose 61 L (75-100) mg/dL Calcium 10.3 H (8.4-10.2) mg/dL Urine WBC (Auto) (0.0-6.0) /HPF Salicylates < 0.3 L (2.8-20.0) mg/dL Acetaminophen 5.0 L (10.0-30.0) ug/mL 04/13/20 04/13/20 Range/Units 00:07 Unknown Hgb 15.8 H (11.8-15.2) gm/dl Hct 46.7 H (35.5-45.6) % [place] % (Auto) 11.4 H (0.0-7.3) % Eos % (Auto) 8.5 H (0.0-4.3) % [place] # (Auto) 0.9 H (0.0-0.8) K/mm3 Eos # (Auto) 0.7 H (0.0-0.4) K/mm3 BUN (9-20) mg/dL Glucose (75-100) mg/dL Calcium (8.4-10.2) mg/dL Urine WBC (Auto) 18.0 H (0.0-6.0) /HPF Salicylates (2.8-20.0) mg/dL Acetaminophen (10.0-30.0) ug/mL All other labs normal.
== END 2020-04-13 11:43 | disposition home or self-care (01) ==
LOC: ED 22:28
DX: N39.0 Urinary tract infection, site not specified (principal); R45.851 Suicidal ideations; F32.9 Major depressive disorder, single episode, unspecified; F41.9 Anxiety disorder, unspecified; F17.200 Nicotine dependence, unspecified, uncomplicated; J45.909 Unspecified asthma, uncomplicated; Z79.899 Other long term (current) drug therapy; Z88.8 Allergy status to other drugs, medicaments and biological substances; Z86.69 Personal history of other diseases of the nervous system and sense organs
CPT/HCPCS: 36415; 72040; 80048; 80307; 80320; 81001; 85025; 87086; G0480

== ENCOUNTER 2020-04-28 23:55 | Emergency (ER) | payer SELFPAY ==
--- NOTE | 2020-04-29 00:29 | Emergency Department Report ---
Blank Doc - Documentation Documentation: 34-year-old -[place] Citizen male presents emerged department complaining of c entralized abdominal pain associated with nausea and vomiting of an unknown etiology reports no illicit drug use or foreign travel no hemoptysis no hematemesis no known sick contact Patient is ambulatory no acute distress lung sounds are clear bowel sounds are normal no significant pain with palpation of the of the abdomen was sitting in chair This initial assessment/diagnostic orders/clinical plan/treatment(s) is/are subject to change based on patients health status, clinical progression and re- assessment by fellow clinical providers in the ED. Further treatment and workup at subsequent clinical providers discretion. Patient/guardian urged not to elope from the ED as their condition may be serious if not clinically assessed and managed. Initial orders include: Labs and urinalysis
[2020-04-29 00:40] LABS: Hematocrit 46.7 % (35.5-45.6); Hemoglobin 15.6 gm/dl (11.8-15.2); Mean Corpuscular HGB Conc 34 % (32-34); Mean Corpuscular Volume 94 fl (84-94); Platelet Count 224 K/mm3 (140-440); Red Blood Count 4.97 M/mm3 (3.65-5.03); Red Cell Distribution Width 14.6 % (13.2-15.2)
[2020-04-29 00:48] LABS: Alanine Aminotransferase 14 units/L (7-56); Albumin 4.6 g/dL (3.9-5); BUN/Creatinine Ratio 9; Blood Urea Nitrogen 7 mg/dL (9-20); Calcium 9.4 mg/dL (8.4-10.2); Hemolysis Index 14
[2020-04-29] MEDS ORDERED: SODIUM CHLORIDE 0.9% 1000 ML 1,000 ML IV ONE (00:59)
[2020-04-29] MEDS ORDERED: ONDANSETRON 4 MG/2 ML INJ IV ONE (00:59)
[2020-04-29] MEDS ORDERED: KETOROLAC 30 MG/1 ML INJ IV ONE (01:03)
[2020-04-29] MEDS ORDERED: FAMOTIDINE 20 MG/2 ML INJ IV ONE (01:04)
--- NOTE | 2020-04-29 01:20 | Emergency Department Report ---
ED N/V/D HPI - General Chief complaint: Abdominal Pain Stated complaint: ABD PAIN/EMESIS Time Seen by Provider: 04/29/20 00:58 Source: patient Mode of arrival: Ambulatory Limitations: No Limitations - History of Present Illness Initial comments: 34-year-old male with a past medical history of seizures, asthma, psychosis, depression, and anxiety presents to the hospital complaints of nausea, vomiting, diarrhea with decreased p.o. intake for last 3 days. Patient having mild generalized abdominal pain worse with palpation. Patient also states he had an episode of chest pain after vomiting. He denies melena, hematochezia, hematemesis, or documented fever. He also denies previous abdominal surgeries. - Related Data Home Medications Medication Instructions Recorded Confirmed Last Taken Trihexyphenidyl (Nf) [Artane (Nf)] 5 mg PO TID 04/13/20 04/13/20 Unknown buPROPion SR [Wellbutrin SR] 100 mg PO QDAY 04/13/20 04/13/20 Unknown Previous Rx's Medication Instructions Recorded Last Taken Type diphenhydrAMINE [Benadryl CAP] 25 mg PO DAILY PRN #15 capsule 02/02/20 Unknown Rx levoFLOXacin [Levaquin TAB] 500 mg PO QDAY #7 tablet 04/13/20 Unknown Rx Bismuth Subsalicylate 2 tab PO QID PRN #20 tab.chew 04/29/20 Unknown Rx [Pepto-Bismol] Famotidine [Pepcid] 20 mg PO BID #20 tablet 04/29/20 Unknown Rx Ondansetron [Zofran Odt] 4 mg PO Q8HR PRN #20 tab.rapdis 04/29/20 Unknown Rx Allergies Allergy/AdvReac Type Severity Reaction Status Date / Time benztropine [From Cogentin] Allergy Unknown Verified 02/05/20 18:53 fluphenazine [From Prolixin] Allergy Unknown Verified 02/05/20 18:53 haloperidol [From Haldol] Allergy Unknown Verified 02/05/20 18:53 ziprasidone [From Geodon] Allergy Unknown Verified 02/05/20 18:53 ED Review of Systems ROS: Stated complaint: ABD PAIN/EMESIS Other details as noted in HPI Comment: All other systems reviewed and negative ED Past Medical Hx - Past Medical History Previous Medical History?: Yes Hx Seizures: Yes Hx Psychiatric Treatment: Yes (Psychosis, DEPRESSION, ANXIETY) Hx Asthma: Yes - Surgical History Past Surgical History?: No - Social History Smoking Status: Unknown if ever smoked Substance Use Type: None - Medications Home Medications: Home Medications Medication Instructions Recorded Confirmed Last Taken Type diphenhydrAMINE [Benadryl CAP] 25 mg PO DAILY PRN #15 capsule 02/02/20 04/13/20 Unknown Rx Trihexyphenidyl (Nf) [Artane (Nf)] 5 mg PO TID 04/13/20 04/13/20 Unknown History buPROPion SR [Wellbutrin SR] 100 mg PO QDAY 04/13/20 04/13/20 Unknown History levoFLOXacin [Levaquin TAB] 500 mg PO QDAY #7 tablet 04/13/20 Unknown Rx Bismuth Subsalicylate 2 tab PO QID PRN #20 tab.chew 04/29/20 Unknown Rx [Pepto-Bismol] Famotidine [Pepcid] 20 mg PO BID #20 tablet 04/29/20 Unknown Rx Ondansetron [Zofran Odt] 4 mg PO Q8HR PRN #20 tab.rapdis 04/29/20 Unknown Rx ED Physical Exam - General Limitations: No Limitations - Other Other exam information: General: No acute distress Head: Atraumatic Eyes: normal appearance ENT: Moist mucous membranes Neck: Normal appearance, no midline tenderness Chest: Clear to auscultation bilaterally CV: Mild tachycardia regular Abdomen: Soft, normal bowel sounds, mild generalized tenderness, nondistended, no rebound or guarding Back: Normal inspection Extremity: Normal inspection, full range of motion Neuro: Alert O x 3, no facial asymmetry, speech clear, no gross motor sensory deficit Psych: Appropriate behavior Skin: No rash ED Course Vital Signs 04/29/20 04/29/20 04/29/20 00:00 01:36 02:06 Temperature 97.4 F L Pulse Rate 118 H Respiratory 18 18 18 Rate Blood Pressure 130/85 Blood Pressure [Left] O2 Sat by Pulse 98 Oximetry 04/29/20 03:08 Temperature Pulse Rate 96 H Respiratory 18 Rate Blood Pressure Blood Pressure 142/82 [Left] O2 Sat by Pulse 100 Oximetry ED Medical Decision Making - Lab Data Result diagrams: 04/29/20 00:19 04/29/20 00:19 Lab Results 04/29/20 04/29/20 04/29/20 Range/Units 00:19 00:19 00:19 WBC 5.9 (4.5-11.0) K/mm3 RBC 4.97 (3.65-5.03) M/mm3 Hgb 15.6 H (11.8-15.2) gm/dl Hct 46.7 H (35.5-45.6) % MCV 94 (84-94) fl MCH 32 (28-32) pg MCHC 34 (32-34) % RDW 14.6 (13.2-15.2) % Plt Count 224 (140-440) K/mm3 Add Manual Diff Complete Total Counted 100 Seg Neuts % (Manual) 51.0 (40.0-70.0) % Lymphocytes % (Manual) 30.0 (13.4-35.0) % Monocytes % (Manual) 13.0 H (0.0-7.3) % Eosinophils % (Manual) 6.0 H (0.0-4.3) % Nucleated RBC % Not Reportable Seg Neutrophils # Man 3.0 (1.8-7.7) K/mm3 Band Neutrophils # 0.0 K/mm3 Lymphocytes # (Manual) 1.8 (1.2-5.4) K/mm3 Abs React Lymphs (Man) 0.0 K/mm3 Monocytes # (Manual) 0.8 (0.0-0.8) K/mm3 Eosinophils # (Manual) 0.4 (0.0-0.4) K/mm3 Basophils # (Manual) 0.0 (0.0-0.1) K/mm3 Metamyelocytes # 0.0 K/mm3 Myelocytes # 0.0 K/mm3 Promyelocytes # 0.0 K/mm3 Blast Cells # 0.0 K/mm3 WBC Morphology Not Reportable Hypersegmented Neuts Not Reportable Hyposegmented Neuts Not Reportable Hypogranular Neuts Not Reportable Smudge Cells Not Reportable Toxic Granulation Not Reportable Toxic Vacuolation Not Reportable Dohle Bodies Not Reportable Pelger-Huet Anomaly Not Reportable Sonal Rods Not Reportable Platelet Estimate Consistent w auto Clumped Platelets Not Reportable Plt Clumps, EDTA Not Reportable Large Platelets Not Reportable Giant Platelets Not Reportable Platelet Satelliting Not Reportable Plt Morphology Comment Not Reportable RBC Morphology Not Reportable Dimorphic RBCs Not Reportable Polychromasia Not Reportable Hypochromasia Not Reportable Poikilocytosis Not Reportable Anisocytosis Not Reportable Microcytosis Not Reportable Macrocytosis Not Reportable Spherocytes Not Reportable Pappenheimer Bodies Not Reportable Sickle Cells Not Reportable Target Cells Not Reportable Tear Drop Cells Not Reportable Ovalocytes Not Reportable Helmet Cells Not Reportable Miner-[place] Bodies Not Reportable [place] Rings Not Reportable [place] Cells Not Reportable Bite Cells Not Reportable Crenated Cell Not Reportable Elliptocytes Not Reportable Acanthocytes (Spur) Not Reportable Rouleaux Not Reportable Hemoglobin C Crystals Not Reportable Schistocytes Not Reportable Malaria parasites Not Reportable Emerson Bodies Not Reportable Hem Pathologist Commnt No Sodium 148 H (137-145) mmol/L Potassium 4.1 (3.6-5.0) mmol/L Chloride 111.2 H (98-107) mmol/L Carbon Dioxide 28 (22-30) mmol/L Anion Gap 13 mmol/L BUN 7 L (9-20) mg/dL Creatinine 0.8 (0.8-1.3) mg/dL Estimated GFR > 60 ml/min BUN/Creatinine Ratio 9 % Glucose 62 L (75-100) mg/dL Calcium 9.4 (8.4-10.2) mg/dL Magnesium 2.20 (1.7-2.3) mg/dL Total Bilirubin 0.30 (0.1-1.2) mg/dL AST 16 (5-40) units/L ALT 14 (7-56) units/L Alkaline Phosphatase 54 (35-129) units/L Total Protein 7.0 (6.3-8.2) g/dL Albumin 4.6 (3.9-5) g/dL Albumin/Globulin Ratio 1.9 % Lipase 16 (13-60) units/L Urine Color (Yellow) Urine Turbidity (Clear) Urine pH (5.0-7.0) Ur Specific [place] (1.003-1.030) Urine Protein (Negative) mg/dL Urine Glucose (UA) (Negative) mg/dL Urine Ketones (Negative) mg/dL Urine Blood (Negative) Urine Nitrite (Negative) Urine Bilirubin (Negative) Urine Urobilinogen (<2.0) mg/dL Ur Leukocyte Esterase (Negative) Urine WBC (Auto) (0.0-6.0) /HPF Urine RBC (Auto) (0.0-6.0) /HPF Urine Mucus /HPF Urine Opiates Screen Urine Methadone Screen Ur Barbiturates Screen Ur Phencyclidine Scrn Ur Amphetamines Screen U Benzodiazepines Scrn Urine Cocaine Screen U Marijuana (THC) Screen Drugs of Abuse Note 04/29/20 04/29/20 Range/Units Unknown Unknown WBC (4.5-11.0) K/mm3 RBC (3.65-5.03) M/mm3 Hgb (11.8-15.2) gm/dl Hct (35.5-45.6) % MCV (84-94) fl MCH (28-32) pg MCHC (32-34) % RDW (13.2-15.2) % Plt Count (140-440) K/mm3 Add Manual Diff Total Counted Seg Neuts % (Manual) (40.0-70.0) % Lymphocytes % (Manual) (13.4-35.0) % Monocytes % (Manual) (0.0-7.3) % Eosinophils % (Manual) (0.0-4.3) % Nucleated RBC % Seg Neutrophils # Man (1.8-7.7) K/mm3 Band Neutrophils # K/mm3 Lymphocytes # (Manual) (1.2-5.4) K/mm3 Abs React Lymphs (Man) K/mm3 Monocytes # (Manual) (0.0-0.8) K/mm3 Eosinophils # (Manual) (0.0-0.4) K/mm3 Basophils # (Manual) (0.0-0.1) K/mm3 Metamyelocytes # K/mm3 Myelocytes # K/mm3 Promyelocytes # K/mm3 Blast Cells # K/mm3 WBC Morphology Hypersegmented Neuts Hyposegmented Neuts Hypogranular Neuts Smudge Cells Toxic Granulation Toxic Vacuolation Dohle Bodies Pelger-Huet Anomaly Sonal Rods Platelet Estimate Clumped Platelets Plt Clumps, EDTA Large Platelets Giant Platelets Platelet Satelliting Plt Morphology Comment RBC Morphology Dimorphic RBCs Polychromasia Hypochromasia Poikilocytosis Anisocytosis Microcytosis Macrocytosis Spherocytes Pappenheimer Bodies Sickle Cells Target Cells Tear Drop Cells Ovalocytes Helmet Cells Miner-[place] Bodies [place] Rings Ovidio Cells Bite Cells Crenated Cell Elliptocytes Acanthocytes (Spur) Rouleaux Hemoglobin C Crystals Schistocytes Malaria parasites Emerson Bodies Hem Pathologist Commnt Sodium (137-145) mmol/L Potassium (3.6-5.0) mmol/L Chloride (98-107) mmol/L Carbon Dioxide (22-30) mmol/L Anion Gap mmol/L BUN (9-20) mg/dL Creatinine (0.8-1.3) mg/dL Estimated GFR ml/min BUN/Creatinine Ratio % Glucose (75-100) mg/dL Calcium (8.4-10.2) mg/dL Magnesium (1.7-2.3) mg/dL Total Bilirubin (0.1-1.2) mg/dL AST (5-40) units/L ALT (7-56) units/L Alkaline Phosphatase (35-129) units/L Total Protein (6.3-8.2) g/dL Albumin (3.9-5) g/dL Albumin/Globulin Ratio % Lipase (13-60) units/L Urine Color Yellow (Yellow) Urine Turbidity Clear (Clear) Urine pH 7.0 (5.0-7.0) Ur Specific [place] 1.017 (1.003-1.030) Urine Protein <15 mg/dl (Negative) mg/dL Urine Glucose (UA) Neg (Negative) mg/dL Urine Ketones Neg (Negative) mg/dL Urine Blood Neg (Negative) Urine Nitrite Neg (Negative) Urine Bilirubin Neg (Negative) Urine Urobilinogen 2.0 (<2.0) mg/dL Ur Leukocyte Esterase Neg (Negative) Urine WBC (Auto) < 1.0 (0.0-6.0) /HPF Urine RBC (Auto) < 1.0 (0.0-6.0) /HPF Urine Mucus Few /HPF Urine Opiates Screen Presumptive negative Urine Methadone Screen Presumptive negative Ur Barbiturates Screen Presumptive negative Ur Phencyclidine Scrn Presumptive negative Ur Amphetamines Screen Presumptive negative U Benzodiazepines Scrn Presumptive negative Urine Cocaine Screen Presumptive negative U Marijuana (THC) Screen Presumptive positive Drugs of Abuse Note Disclamer - Radiology Data Radiology results: report reviewed CT abdomen pelvis with IV contrast: no acute finding - Medical Decision Making 34-year-old male presents to the hospital for nausea, vomiting, and diarrhea with initial tachycardia. Labs unremarkable. UDS positive for marijuana. CT abdomen pelvis IV contrast no acute findings. Patient see 1 L normal saline, Pepcid, and Toradol with improvement in symptoms. Heart rate improved with IV hydration. Patient able to tolerate p.o. prior to discharge. Repeat glucose c heck shows improvement in glucose level. Critical Care Time: No Critical care attestation.: If time is entered above; I have spent that time in minutes in the direct care of this critically ill patient, excluding procedure time. ED Disposition Clinical Impression: Gastroenteritis Disposition: DC-01 TO HOME OR SELFCARE Is pt being admited?: No Condition: Stable Instructions: Viral Gastroenteritis, Adult, [id number] Additional Instructions: Take the medication as prescribed. Follow-up with your doctor or doctor/clinic provided. Return if symptoms worsen as indicated by your discharge instructions. Prescriptions: Famotidine [Pepcid] 20 mg PO BID #20 tablet Bismuth Subsalicylate [Pepto-Bismol] 2 tab PO QID PRN #20 tab.chew PRN Reason: Diarrhea Ondansetron [Zofran Odt] 4 mg PO Q8HR PRN #20 tab.rapdis PRN Reason: Nausea And Vomiting Referrals: ARMANDO QUIROZ MD [Primary Care Provider] - 3-5 Days LM SHARP MD [Staff Physician] - 3-5 Days Time of Disposition: 03:56
[2020-04-29 01:39] LABS: Total Cells Counted 100
[2020-04-29 01:40] LABS: Platelet Estimate Consistent w Auto
--- NOTE | 2020-04-29 02:48 | Cat Scan Report ---
CT ABDOMEN AND PELVIS WITH CONTRAST INDICATION: Patient complains of abd pain with N/V/D x 3 days. CONTRAST: 100 cc Omnipaque 300 IV COMPARISON: None available. All CT scans at this location are performed using CT dose reduction for ALARA by means of automated e xposure control. FINDINGS: No masses are seen. No urinary or bowel obstructive changes are noted. No inflammatory kearney ges are seen. No free fluid is noted. No pneumoperitoneum is seen. Appendix appears within normal martinez its. Gallbladder and bile ducts show no abnormalities. IMPRESSION: No acute abnormalities are seen Signer Name: Peewee Sauceda MD Signed: 04/29/2020 2:43 AM Workstation Name: [id number]
[2020-04-29 03:06] LABS: Amphetamine Screen,Urine PRESUMPTIVE NEGATIVE; Benzodiazepines Screen,Urine PRESUMPTIVE NEGATIVE; Cannabinoid Screen,Urine PRESUMPTIVE POSITIVE; Cocaine Screen,Urine PRESUMPTIVE NEGATIVE; Methadone Screen,Urine PRESUMPTIVE NEGATIVE; Opiate Screen,Urine PRESUMPTIVE NEGATIVE
[2020-04-29 03:09] VITALS: BP 142/82
[2020-04-29 03:09] LABS: Bilirubin,Urine NEG (Negative); Blood,Urine NEG (Negative); Color,Urine Yellow (Yellow); Mucus,Urine FEW /HPF; Protein,Urine <15 mg/dL mg/dL (Negative); RBC,Urine < 1.0 /HPF (0.0-6.0); WBC,Urine < 1.0 /HPF (0.0-6.0)
== END 2020-04-29 04:15 | disposition home or self-care (01) ==
LOC: ED 23:55
DX: K52.9 Noninfective gastroenteritis and colitis, unspecified (principal); F32.9 Major depressive disorder, single episode, unspecified; F41.9 Anxiety disorder, unspecified; J45.909 Unspecified asthma, uncomplicated; Z86.69 Personal history of other diseases of the nervous system and sense organs; Z79.899 Other long term (current) drug therapy; Z88.8 Allergy status to other drugs, medicaments and biological substances
CPT/HCPCS: 36415; 74177; 80053; 80307; 81001; 82962; 83690; 83735; 85007; 85025; 96361; 96374; 96375; 99284; J1885; J2405; J7030; Q9967

== ENCOUNTER 2021-07-29 10:00 | Emergency (ER) | payer SELFPAY ==
[2021-07-29 11:13] LABS: Basophils % (Auto) 0.1 % (0.0-1.8); Eosinophils # (Auto) 0.6 K/mm3 (0.0-0.4); Eosinophils % (Auto) 11.2 % (0.0-4.3); Hematocrit 42.9 % (35.5-45.6); Hemoglobin 14.3 gm/dl (11.8-15.2); Lymphocytes # (Auto) 1.1 K/mm3 (1.2-5.4); Mean Corpuscular HGB Conc 33 % (32-34); Mean Corpuscular Volume 91 fl (84-94); Monocytes # (Auto) 0.4 K/mm3 (0.0-0.8); Monocytes % (Auto) 8.7 % (0.0-7.3); Platelet Count 223 K/mm3 (140-440); Red Blood Count 4.72 M/mm3 (3.65-5.03); Red Cell Distribution Width 13.8 % (13.2-15.2)
--- NOTE | 2021-07-29 11:17 | Emergency Department Report ---
HPI - General Chief Complaint: Psych - HPI HPI: [facility] The patient is a 36-year-old male present with a chief complaint of auditory hallucinations. Patient states he was recently released from longterm (yesterday) and after release he states he has been having auditory hallucinations with voices telling him to kill himself. Patient denies any attempts at harming himself or having an active plan. Patient states he just feels stressed out. Patient states he was given psychiatric medications in the longterm but he lost them after his release. ED Past Medical Hx - Past Medical History Hx Seizures: Yes Hx Psychiatric Treatment: Yes (anxiety) Hx Asthma: Yes - Surgical History Additional Surgical History: Shoulder surgery - Family History Family history: no significant - Social History Smoking Status: Current Some Day Smoker Substance Use Type: None (Denies illicit drug use) - Medications Home Medications: Home Medications Medication Instructions Recorded Confirmed Last Taken Type Trazodone HCl 150 PO DAILY 08/28/19 1 Month Ago History ~07/29/19 diphenhydrAMINE [Benadryl CAP] 25 mg PO DAILY PRN #15 capsule 02/02/20 04/13/20 Unknown Rx Trihexyphenidyl (Nf) [Artane (Nf)] 5 mg PO TID 04/13/20 04/13/20 Unknown History buPROPion SR [Wellbutrin SR] 100 mg PO QDAY 04/13/20 04/13/20 Unknown History levoFLOXacin [Levaquin TAB] 500 mg PO QDAY #7 tablet 04/13/20 Unknown Rx Bismuth Subsalicylate 2 tab PO QID PRN #20 tab.chew 04/29/20 Unknown Rx [Pepto-Bismol] Famotidine [Pepcid] 20 mg PO BID #20 tablet 04/29/20 Unknown Rx Ondansetron [Zofran Odt] 4 mg PO Q8HR PRN #20 tab.rapdis 04/29/20 Unknown Rx ED Review of Systems ROS: Stated complaint: MH Other details as noted in HPI Constitutional: no symptoms reported Eyes: denies: eye pain ENT: denies: throat pain Cardiovascular: denies: chest pain Endocrine: no symptoms reported Gastrointestinal: denies: abdominal pain Genitourinary: denies: dysuria Neurological: denies: headache Psychiatric: auditory hallucinations, suicidal thoughts Physical Exam - Physical Exam Vital Signs: Vital Signs 04/22/22 10:04 Temperature 98.5 F Pulse Rate 116 H Respiratory 20 Rate Blood Pressure 126/100 O2 Sat by Pulse 98 Oximetry ED Course Vital Signs 07/29/21 10:04 Temperature 98.5 F Pulse Rate 116 H Respiratory 20 Rate Blood Pressure 126/100 O2 Sat by Pulse 98 Oximetry ED Medical Decision Making - Lab Data Result diagrams: 07/29/21 10:43 07/29/21 10:43 Critical care attestation.: If time is entered above; I have spent that time in minutes in the direct care of this critically ill patient, excluding procedure time. ED Disposition Clinical Impression: Auditory hallucinations Disposition: 30 STILL A PATIENT Is pt being admited?: No Does the pt Need Aspirin: No Condition: Stable Time of Disposition: 14:45 (Awaiting eval)
[2021-07-29 11:28] LABS: Alanine Aminotransferase 6 units/L (7-56); Albumin 4.8 g/dL (3.9-5); BUN/Creatinine Ratio 12; Blood Urea Nitrogen 11 mg/dL (9-20); Calcium 9.4 mg/dL (8.4-10.2); Hemolysis Index 10
[2021-07-30 05:21] LABS: Amphetamine Screen,Urine Negative; Benzodiazepines Screen,Urine Negative; Cocaine Screen,Urine Negative; Methadone Screen,Urine Negative; Opiate Screen,Urine Negative
[2021-07-30 05:23] LABS: Bilirubin,Urine NEG (Negative); Blood,Urine SM (Negative); Color,Urine Yellow (Yellow); Protein,Urine <15 mg/dL mg/dL (Negative); Urobilinogen,Urine < 2.0 mg/dL (<2.0); WBC,Urine < 1.0 /HPF (0.0-6.0)
[2021-07-30 05:56] LABS: Cannabinoid Screen,Urine PRESUMPTIVE POSITIVE
--- NOTE | 2021-07-30 10:03 | Consultation ---
History of Present Illness - Reason for Consult Consult date: 07/30/21 Reason for consult: lost scripts, hallucinations - History of Present Psychiatric Illness The patient was seen today. He is known to me from previous visits. He is calm and cooperative. The patient says he was released from [facility] recently and lost his medications. He says he was given Invega sustenna a week ago. He says he lost the wellbutrin and artane scripts. The patient denies SI /HI. He says "sometimes I feel like that but not now." The patient also denies hallucinations of any kind. He denies any illicit drug use outside of [facility]. PAST PSYCHIATRIC HISTORY: Diagnoses: Bipolar, schizophrenia, PTSD, depression, anxiety, Suicide attempts or Self-harm behavior: Yes patient at attempted to strangulate self and cut self Prior psychiatric hospitalizations: Yes multiple episodes Substance Abuse history: Years ago Previous psychiatric medications tried: Wellbutrin, Depakote, artane Outpatient treatment: Yes, sees Dr. Salomon PAST MEDICAL HISTORY: None reported Family Psychiatric History: None reported or documented SOCIAL HISTORY Marital Status: Single Living Arrangements: Homeless Employment Status: Unemployed Access to guns/weapons: None reported Education: Ninth grade dropout History of Abuse: None reported Legal History: Yes specific details unknown REVIEW OF SYSTEMS Constitutional: Negative for weight loss ENT: Negative for stridor Respiratory: Negative for cough or hemoptysis All other systems reviewed and are negative MENTAL STATUS EXAMINATION General Appearance and Behavior: Age appropriate, good hygiene, wearing appropriate clothes, good eye contact, calm, cooperative Cooperation: reluctant to cooperative, but Guarded Psychomotor Behavior: Psychomotor normal Mood: "okay" Affect and affective range: Euthymic Thought Process: goal directed Thought Content: none Speech: Normal tone and pace Suicidal Ideation: Denies Homicidal Ideation: Denies HI Impulse Control: Limited Insight and Judgment: Limited insight and judgment, Impaired Memory: Normal Attention: Attentive Orientation: Alert, oriented Assessment and Plan (2) Schizoaffective disorder, chronic RECOMMENDATIONS Wellbutrin 100mg po daily Artane 5mg po TID PSYCHOTHERAPY: Supportive psychotherapy provided MEDICAL: Per primary team DELIRIUM PRECAUTIONS: Please re-orient patient frequently, keep lights on during the day, and minimize benzodiazepines and opiates as these medications could worsen patient's confusion. 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 He understands that if any self harm thoughts or behaviors or any fear of endangerment are to arise he is to seek immediate assistance including but not limited to the crisis hotline, 911, ER. The biologist to further discuss safety plan The biologist is to give the patient resources for outpatient psychiatry, cognitive behavioral therapy, medication assistance, transportation pass if needed, and longterm resources Follow up with outpatient psych and primary in 7 to 14 days upon discharge. Will sign off. Thank you for the consult. Please contact with any questions and/or concerns. Case staffed with Dr. Kearney. Medications and Allergies Allergies Allergy/AdvReac Type Severity Reaction Status Date / Time benztropine [From Cogentin] Allergy Unknown Verified 07/29/21 19:37 fluphenazine [From Prolixin] Allergy Unknown Verified 07/29/21 19:37 haloperidol [From Haldol] Allergy Unknown Verified 07/29/21 19:37 ziprasidone [From Geodon] Allergy Unknown Verified 07/29/21 19:37 Home Medications Medication Instructions Recorded Confirmed Last Taken Type Trazodone HCl 150 PO DAILY 08/28/19 1 Month Ago History ~07/29/19 diphenhydrAMINE [Benadryl CAP] 25 mg PO DAILY PRN #15 capsule 02/02/20 04/13/20 Unknown Rx levoFLOXacin [Levaquin TAB] 500 mg PO QDAY #7 tablet 04/13/20 Unknown Rx Bismuth Subsalicylate 2 tab PO QID PRN #20 tab.chew 04/29/20 Unknown Rx [Pepto-Bismol] Famotidine [Pepcid] 20 mg PO BID #20 tablet 04/29/20 Unknown Rx Ondansetron [Zofran Odt] 4 mg PO Q8HR PRN #20 tab.rapdis 04/29/20 Unknown Rx Trihexyphenidyl (Nf) [Artane (Nf)] 5 mg PO TID #90 07/30/21 Unknown Rx buPROPion SR [Wellbutrin SR] 100 mg PO QDAY #30 07/30/21 Unknown Rx Mental Status Exam - Vital signs Last Vital Signs Temp 98.3 F 07/29/21 20:44 Pulse 88 07/29/21 20:44 Resp 16 07/29/21 20:44 BP 104/75 07/29/21 20:44 Pulse Ox 100 07/29/21 20:45 Results Result Diagrams: 07/29/21 10:43 07/29/21 10:43 Abnormal lab results 07/29/21 07/29/21 07/29/21 Range/Units 10:43 10:43 10:43 [place] % (Auto) 8.7 H (0.0-7.3) % Eos % (Auto) 11.2 H (0.0-4.3) % Lymph # (Auto) 1.1 L (1.2-5.4) K/mm3 Eos # (Auto) 0.6 H (0.0-0.4) K/mm3 Glucose 129 H (75-100) mg/dL ALT 6 L (7-56) units/L Salicylates < 0.3 L (2.8-20.0) mg/dL Acetaminophen (10.0-30.0) ug/mL 07/29/21 Range/Units 10:43 [place] % (Auto) (0.0-7.3) % Eos % (Auto) (0.0-4.3) % Lymph # (Auto) (1.2-5.4) K/mm3 Eos # (Auto) (0.0-0.4) K/mm3 Glucose (75-100) mg/dL ALT (7-56) units/L Salicylates (2.8-20.0) mg/dL Acetaminophen 5.0 L (10.0-30.0) ug/mL All other labs normal.
--- NOTE | 2021-07-30 11:34 | Emergency Department Report ---
Blank Doc - Documentation Documentation: Chart reviewed Patient presented here yesterday for auditory hallucinations and suicidal ideation. Upon mental health nurse practitioner examination today patient denies suicidal homicidal ideation and was requesting a refill in his meds since he recently lost his prescription. Patient has been cleared for discharge with psych meds and outpatient follow-up. Vital signs reviewed. Nursing notes reviewed
[2021-07-30 12:31] VITALS: BP 125/75
== END 2021-07-30 13:00 | disposition home or self-care (01) ==
LOC: ED 10:00
DX: R44.0 Auditory hallucinations (principal); J45.909 Unspecified asthma, uncomplicated; F41.9 Anxiety disorder, unspecified; F17.200 Nicotine dependence, unspecified, uncomplicated; Z88.8 Allergy status to other drugs, medicaments and biological substances; Z79.899 Other long term (current) drug therapy
CPT/HCPCS: 36415; 80053; 80307; 80320; 81001; 84443; 85025; 99284; G0480

== ENCOUNTER 2021-08-16 02:22 | Emergency (ER) | payer SELFPAY ==
[2021-08-16] MEDS ORDERED: buPROPion 100 MG TAB PO ONE (03:32)
--- NOTE | 2021-08-16 03:38 | Emergency Department Report ---
ED Psych HPI - General Chief Complaint: Psych Stated Complaint: CHAMP EVAL, SUICIDAL Time Seen by Provider: 08/16/21 02:57 Source: patient, EMS Mode of arrival: Stretcher - History of Present Illness Initial Comments: 36 yo M who present wanting help as he tried to commit suicide by shooting himself in the head. He says that his mother yesterday after a grandma seizure and did not make it alive. He was so devastated to the point that he put his gun to his mouth but started crying and threw the gun in the push and ran for help. He reports history of Bipolar and anxiety and has not taken any of his medications in 2 weeks. Pt however denies any homicidal ideation. No other modifying or associated factors reported. - Related Data Home Medications Medication Instructions Recorded Confirmed Last Taken Trazodone HCl 150 PO DAILY 08/28/19 1 Month Ago ~07/29/19 Previous Rx's Medication Instructions Recorded Last Taken Type diphenhydrAMINE [Benadryl CAP] 25 mg PO DAILY PRN #15 capsule 02/02/20 Unknown Rx levoFLOXacin [Levaquin TAB] 500 mg PO QDAY #7 tablet 04/13/20 Unknown Rx Bismuth Subsalicylate 2 tab PO QID PRN #20 tab.chew 04/29/20 Unknown Rx [Pepto-Bismol] Famotidine [Pepcid] 20 mg PO BID #20 tablet 04/29/20 Unknown Rx Ondansetron [Zofran Odt] 4 mg PO Q8HR PRN #20 tab.rapdis 04/29/20 Unknown Rx Trihexyphenidyl (Nf) [Artane (Nf)] 5 mg PO TID #90 07/30/21 Unknown Rx buPROPion SR [Wellbutrin SR] 100 mg PO QDAY #30 07/30/21 Unknown Rx Allergies Allergy/AdvReac Type Severity Reaction Status Date / Time benztropine [From Cogentin] Allergy Unknown Verified 07/29/21 19:37 fluphenazine [From Prolixin] Allergy Unknown Verified 07/29/21 19:37 haloperidol [From Haldol] Allergy Unknown Verified 07/29/21 19:37 ziprasidone [From Geodon] Allergy Unknown Verified 07/29/21 19:37 ED Review of Systems ROS: Stated complaint: MH EVAL, SUICIDAL Other details as noted in HPI Comment: All other systems reviewed and negative Psychiatric: suicidal thoughts, other (suicide idea and trial) ED Past Medical Hx - Past Medical History Previous Medical History?: Yes Hx Seizures: Yes Hx Psychiatric Treatment: Yes (anxiety) Hx Asthma: Yes - Surgical History Past Surgical History?: Yes Additional Surgical History: Shoulder surgery - Social History Smoking Status: Current Some Day Smoker Substance Use Type: None (Denies illicit drug use) - Medications Home Medications: Home Medications Medication Instructions Recorded Confirmed Last Taken Type Trazodone HCl 150 PO DAILY 08/28/19 1 Month Ago History ~07/29/19 diphenhydrAMINE [Benadryl CAP] 25 mg PO DAILY PRN #15 capsule 02/02/20 04/13/20 Unknown Rx levoFLOXacin [Levaquin TAB] 500 mg PO QDAY #7 tablet 04/13/20 Unknown Rx Bismuth Subsalicylate 2 tab PO QID PRN #20 tab.chew 04/29/20 Unknown Rx [Pepto-Bismol] Famotidine [Pepcid] 20 mg PO BID #20 tablet 04/29/20 Unknown Rx Ondansetron [Zofran Odt] 4 mg PO Q8HR PRN #20 tab.rapdis 04/29/20 Unknown Rx Trihexyphenidyl (Nf) [Artane (Nf)] 5 mg PO TID #90 07/30/21 Unknown Rx buPROPion SR [Wellbutrin SR] 100 mg PO QDAY #30 07/30/21 Unknown Rx ED Physical Exam - General Limitations: No Limitations General appearance: alert, in no apparent distress - Head Head exam: Present: normal inspection - Eye Eye exam: Present: normal appearance Pupils: Present: normal accommodation - ENT ENT exam: Present: normal exam, normal orophraynx, mucous membranes moist - Neck Neck exam: Present: normal inspection, full ROM. Absent: tenderness - Respiratory Respiratory exam: Present: normal lung sounds bilaterally. Absent: respiratory distress, accessory muscle use - Cardiovascular Cardiovascular Exam: Present: regular rate, normal rhythm, normal heart sounds - GI/Abdominal GI/Abdominal exam: Present: soft, normal bowel sounds. Absent: distended, tenderness - Extremities Exam Extremities exam: Present: normal inspection - Back Exam Back exam: Present: normal inspection - Neurological Exam Neurological exam: Present: alert, oriented X3 - Psychiatric Psychiatric exam: Present: normal affect, normal mood - Skin Skin exam: Present: warm, normal color ED Course Vital Signs 08/16/21 08/16/21 08/16/21 02:39 07:24 15:30 Temperature 97.6 F Pulse Rate 120 H 82 Respiratory 16 18 18 Rate Blood Pressure 121/90 121/92 [Left] O2 Sat by Pulse 98 100 98 Oximetry 08/16/21 18:25 Temperature 97.8 F Pulse Rate 102 H Respiratory 14 Rate Blood Pressure 140/89 [Left] O2 Sat by Pulse 100 Oximetry - Reevaluation(s) Reevaluation #1: 08/16/21 03:39 here with suicide ideation and failed attempt-- will order labs including thyroid profile and UDS and other routine labs for any infectious process or electrolyte abnormality. ED Medical Decision Making - Lab Data Result diagrams: 08/16/21 03:37 08/16/21 03:37 Critical care attestation.: If time is entered above; I have spent that time in minutes in the direct care of this critically ill patient, excluding procedure time. ED Disposition Clinical Impression: Suicidal ideation, Suicide attempt, Grief reaction Disposition: 30 STILL A PATIENT Is pt being admited?: No Does the pt Need Aspirin: No Condition: Stable Referrals: PRIMARY CARE, [Primary Care Provider] - 3-5 Days
[2021-08-16 04:11] LABS: Basophils % (Auto) 0.6 % (0.0-1.8); Eosinophils # (Auto) 0.8 K/mm3 (0.0-0.4); Eosinophils % (Auto) 15.1 % (0.0-4.3); Hematocrit 43.5 % (35.5-45.6); Lymphocytes # (Auto) 0.8 K/mm3 (1.2-5.4); Lymphocytes % (Auto) 14.8 % (13.4-35.0); Mean Corpuscular HGB Conc 35 % (32-34); Mean Corpuscular Volume 90 fl (84-94); Monocytes # (Auto) 0.3 K/mm3 (0.0-0.8); Monocytes % (Auto) 5.3 % (0.0-7.3); Platelet Count 203 K/mm3 (140-440); Red Blood Count 4.82 M/mm3 (3.65-5.03); Red Cell Distribution Width 13.7 % (13.2-15.2)
[2021-08-16 04:22] LABS: INR 1.01 (0.87-1.13); Partial Thromboplastin Time 29.6 Sec. (24.2-36.6)
[2021-08-16 04:25] LABS: Alanine Aminotransferase 9 units/L (7-56); Albumin 4.4 g/dL (3.9-5); BUN/Creatinine Ratio 9; Blood Urea Nitrogen 7 mg/dL (9-20); Calcium 9.1 mg/dL (8.4-10.2); Hemolysis Index 11
[2021-08-16 06:31] LABS: Bilirubin,Urine NEG (Negative); Blood,Urine NEG (Negative); Color,Urine Straw (Yellow); Mucus,Urine FEW /HPF; Protein,Urine <15 mg/dL mg/dL (Negative); Urobilinogen,Urine < 2.0 mg/dL (<2.0)
[2021-08-16 06:39] LABS: Amphetamine Screen,Urine PRESUMPTIVE POSITIVE; Benzodiazepines Screen,Urine PRESUMPTIVE NEGATIVE; Cannabinoid Screen,Urine PRESUMPTIVE NEGATIVE; Cocaine Screen,Urine PRESUMPTIVE NEGATIVE; Methadone Screen,Urine PRESUMPTIVE NEGATIVE; Opiate Screen,Urine PRESUMPTIVE NEGATIVE
--- NOTE | 2021-08-16 10:34 | Consultation ---
History of Present Illness - Reason for Consult Consult date: 08/16/21 Reason for consult: SI - History of Present Psychiatric Illness The patient was seen today. He is known to me and was seen about two weeks ago. He says he's stressed and having a lot of grief. The patient says his mother just of a grand mal seizure. The patient says he put a gun in his mouth but he couldn't find the strength to do it. He says he has been off his meds for 2 weeks, and hasn't had his invega injection. He denies any illicit drug use, but is positive for methamphetamine. Will recommend inpatient treatment and restart meds. Please give Invega Sustenna 154mg x 1 PAST PSYCHIATRIC HISTORY: Diagnoses: Bipolar, schizophrenia, PTSD, depression, anxiety, Suicide attempts or Self-harm behavior: Yes patient at attempted to strangulate self and cut self Prior psychiatric hospitalizations: Yes multiple episodes Substance Abuse history: Methamphetamine Previous psychiatric medications tried: Wellbutrin, Depakote, artane Outpatient treatment: Yes, sees Dr. Salomon PAST MEDICAL HISTORY: None reported Family Psychiatric History: None reported or documented SOCIAL HISTORY Marital Status: Single Living Arrangements: Homeless Employment Status: Unemployed Access to guns/weapons: None reported Education: Ninth grade dropout History of Abuse: None reported Legal History: Yes specific details unknown REVIEW OF SYSTEMS Constitutional: Negative for weight loss ENT: Negative for stridor Respiratory: Negative for cough or hemoptysis All other systems reviewed and are negative MENTAL STATUS EXAMINATION General Appearance and Behavior: Age appropriate, good hygiene, wearing appropriate clothes, good eye contact, calm, cooperative Cooperation: reluctant to cooperative, but Guarded Psychomotor Behavior: Psychomotor normal Mood: stressed Affect and affective range: Euthymic Thought Process: goal directed Thought Content: none Speech: Normal tone and pace Suicidal Ideation: Yes Homicidal Ideation: Denies HI Impulse Control: Limited Insight and Judgment: Limited insight and judgment, Impaired Memory: Normal Attention: Attentive Orientation: Alert, oriented Assessment and Plan (1) Schizoaffective disorder (2) Methamphetamine Dependence RECOMMENDATIONS Wellbutrin 100mg po daily Artane 5mg po TID Invega Sustenna 154mg IM x 1 PSYCHOTHERAPY: Supportive psychotherapy provided MEDICAL: Per primary team DELIRIUM PRECAUTIONS: Please re-orient patient frequently, keep lights on during the day, and minimize benzodiazepines and opiates as these medications could worsen patient's confusion. 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 Will follow. Thank you for the consult. Please contact with any questions and/or concerns. Case staffed with Dr. Kearney. Medications and Allergies Allergies Allergy/AdvReac Type Severity Reaction Status Date / Time benztropine [From Cogentin] Allergy Unknown Verified 07/29/21 19:37 fluphenazine [From Prolixin] Allergy Unknown Verified 07/29/21 19:37 haloperidol [From Haldol] Allergy Unknown Verified 07/29/21 19:37 ziprasidone [From Geodon] Allergy Unknown Verified 07/29/21 19:37 Home Medications Medication Instructions Recorded Confirmed Last Taken Type Trazodone HCl 150 PO DAILY 08/28/19 1 Month Ago History ~07/29/19 diphenhydrAMINE [Benadryl CAP] 25 mg PO DAILY PRN #15 capsule 02/02/20 04/13/20 Unknown Rx levoFLOXacin [Levaquin TAB] 500 mg PO QDAY #7 tablet 04/13/20 Unknown Rx Bismuth Subsalicylate 2 tab PO QID PRN #20 tab.chew 04/29/20 Unknown Rx [Pepto-Bismol] Famotidine [Pepcid] 20 mg PO BID #20 tablet 04/29/20 Unknown Rx Ondansetron [Zofran Odt] 4 mg PO Q8HR PRN #20 tab.rapdis 04/29/20 Unknown Rx Trihexyphenidyl (Nf) [Artane (Nf)] 5 mg PO TID #90 07/30/21 Unknown Rx buPROPion SR [Wellbutrin SR] 100 mg PO QDAY #30 07/30/21 Unknown Rx Mental Status Exam - Vital signs Last Vital Signs Temp Pulse 120 H 08/16/21 02:39 Resp 18 08/16/21 07:24 BP 121/90 08/16/21 02:39 Pulse Ox 100 08/16/21 07:24 Results Result Diagrams: 08/16/21 03:37 08/16/21 03:37 Abnormal lab results 08/16/21 08/16/21 08/16/21 Range/Units 03:37 03:37 03:37 MCHC 35 H (32-34) % Eos % (Auto) 15.1 H (0.0-4.3) % Lymph # (Auto) 0.8 L (1.2-5.4) K/mm3 Eos # (Auto) 0.8 H (0.0-0.4) K/mm3 BUN 7 L (9-20) mg/dL Salicylates < 0.3 L (2.8-20.0) mg/dL Acetaminophen (10.0-30.0) ug/mL 08/16/21 Range/Units 03:37 MCHC (32-34) % Eos % (Auto) (0.0-4.3) % Lymph # (Auto) (1.2-5.4) K/mm3 Eos # (Auto) (0.0-0.4) K/mm3 BUN (9-20) mg/dL Salicylates (2.8-20.0) mg/dL Acetaminophen 5.0 L (10.0-30.0) ug/mL All other labs normal.
[2021-08-16] MEDS ORDERED: PALIPERIDONE PALMITATE 156 MG/ML INJ IM NR (12:00)
[2021-08-16] MEDS ORDERED: TRIHEXYPHENIDYL 5 MG PO SCH (14:00)
[2021-08-16] MEDS: TRIHEXYPHENIDYL 2 MG TAB PO SCH (14:03)
[2021-08-16] MEDS ORDERED: LORazepam 1 MG TAB PO ONE (16:22)
[2021-08-17] MEDS: TRIHEXYPHENIDYL 2 MG TAB PO SCH ×2 (00:13→05:58)
[2021-08-17 09:37] VITALS: BP 125/82
[2021-08-17] MEDS ORDERED: buPROPion SR 100 MG TAB PO SCH (10:00)
--- NOTE | 2021-08-17 10:44 | Progress Note ---
Subjective - Reason for Consult Consult date: 08/17/21 Reason for consult: SI - Chief Complaint Chief complaint: The patient was seen today. He is calm, cooperative and lucid. When asked how was he feeling, he replies "I feel fine." He appears to be seeking secondary gain. The patient is then asking for ativan. He says "can you give me this for agitation." His behavior is incongruent with his stated complaint, as the patient is laughing and appears to be upbeat. He then tells me that he was recently released from another psych facility, and lost the address where they gave him to go to live. The patient says "I have a number. Can you call them and see if they will give you the address to the place they gave me." He says "and I need transportation there. That's why I came here. I don't have the address to the place." When asking the patient was he still suicidal, he says somewhat. He then laughs and says "call them to get the address." I instructed the patient on using the phone himself and calling to get the address. He replies "it will be better coming from you." Spoke to the nurse caring for this patient. She states that he says "I'm ready to get out of here so I can do some more Ice." REVIEW OF SYSTEMS Constitutional: Negative for weight loss ENT: Negative for stridor Respiratory: Negative for cough or hemoptysis All other systems reviewed and are negative MENTAL STATUS EXAMINATION General Appearance and Behavior: Age appropriate, good hygiene, wearing appropriate clothes, good eye contact, calm, cooperative, upbeat Cooperation: reluctant to cooperative, but Guarded Psychomotor Behavior: Psychomotor normal Mood: fine Affect and affective range: Euthymic Thought Process: goal directed Thought Content: none Speech: Normal tone and pace Suicidal Ideation: Denies Homicidal Ideation: Denies HI Impulse Control: Limited Insight and Judgment: Limited insight and judgment Memory: Normal Attention: Attentive Orientation: Alert, oriented Assessment and Plan (1) Schizoaffective disorder (2) Methamphetamine Dependence RECOMMENDATIONS Wellbutrin 100mg po daily Artane 5mg po TID Invega Sustenna 154mg IM x 1 prior to leaving PSYCHOTHERAPY: Supportive psychotherapy provided MEDICAL: Per primary team DELIRIUM PRECAUTIONS: Please re-orient patient frequently, keep lights on during the day, and minimize benzodiazepines and opiates as these medications could worsen patient's confusion. 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 The patient understands if SI/HI arise he is to seek immediate assistance. Will sign. Thank you for the consult. Please contact with any questions and/or concerns. Spike Driver to give the patient resources He is to abstain from all illicit drug use The patient is to follow up with outpatient psych Case staffed with Dr. Kearney. Mental Status Exam - Vital signs Last Vital Signs Temp 97.8 F 08/17/21 09:36 Pulse 94 H 08/17/21 09:36 Resp 18 08/17/21 09:36 BP 125/82 08/17/21 09:36 Pulse Ox 99 08/17/21 09:36
[2021-08-17] MEDS ORDERED: PALIPERIDONE PALMITATE 156 MG/ML INJ IM SCH (11:00)
--- NOTE | 2021-08-17 11:32 | Event Note ---
Date: 08/17/21 Patient has been evaluated by our psychiatric team. Psychiatric team advised outpatient treatment. Patient currently denying any suicidal or homicidal ideation. No visual or auditory hallucination. Patient is medically and psychiatrically cleared for discharge.
== END 2021-08-17 12:20 | disposition still patient (30) ==
LOC: ED 02:22 → EEVIPCON 02:22 → ED 08-17 12:20
DX: R45.851 Suicidal ideations (principal); F43.20 Adjustment disorder, unspecified; F41.9 Anxiety disorder, unspecified; Z20.822 Contact with and (suspected) exposure to COVID-19; R79.1 Abnormal coagulation profile; J45.909 Unspecified asthma, uncomplicated; F17.200 Nicotine dependence, unspecified, uncomplicated; Z88.8 Allergy status to other drugs, medicaments and biological substances; Z79.899 Other long term (current) drug therapy
CPT/HCPCS: 36415; 80053; 80307; 81001; 84443; 85025; 85610; 85730; 96372; 99284; J2426; U0003; 80320; G0480

== ENCOUNTER 2021-09-01 01:32 | Emergency (ER) | payer SELFPAY ==
[2021-09-01 03:38] LABS: Basophils # (Auto) 0.1 K/mm3 (0.0-0.1); Basophils % (Auto) 1.3 % (0.0-1.8); Eosinophils # (Auto) 0.4 K/mm3 (0.0-0.4); Eosinophils % (Auto) 7.7 % (0.0-4.3); Hematocrit 42.4 % (35.5-45.6); Hemoglobin 13.9 gm/dl (11.8-15.2); Lymphocytes % (Auto) 37.5 % (13.4-35.0); Mean Corpuscular HGB Conc 33 % (32-34); Mean Corpuscular Volume 93 fl (84-94); Monocytes # (Auto) 0.5 K/mm3 (0.0-0.8); Monocytes % (Auto) 8.7 % (0.0-7.3); Platelet Count 240 K/mm3 (140-440); Red Blood Count 4.56 M/mm3 (3.65-5.03); Red Cell Distribution Width 13.8 % (13.2-15.2)
[2021-09-01 04:01] LABS: BUN/Creatinine Ratio 17; Blood Urea Nitrogen 19 mg/dL (9-20); Calcium 9.2 mg/dL (8.4-10.2); Hemolysis Index 7
--- NOTE | 2021-09-01 04:31 | Emergency Department Report ---
<LUCI ANN - Last Filed: 09/01/21 12:09> ED Psych HPI - General Chief Complaint: Psych Stated Complaint: SUICIDE ATTEMPT Time Seen by Provider: 09/01/21 03:15 - Related Data Home Medications Medication Instructions Recorded Confirmed Last Taken Trazodone HCl 150 PO DAILY 08/28/19 1 Month Ago ~07/29/19 Previous Rx's Medication Instructions Recorded Last Taken Type diphenhydrAMINE [Benadryl CAP] 25 mg PO DAILY PRN #15 capsule 02/02/20 Unknown Rx levoFLOXacin [Levaquin TAB] 500 mg PO QDAY #7 tablet 04/13/20 Unknown Rx Bismuth Subsalicylate 2 tab PO QID PRN #20 tab.chew 04/29/20 Unknown Rx [Pepto-Bismol] Famotidine [Pepcid] 20 mg PO BID #20 tablet 04/29/20 Unknown Rx Ondansetron [Zofran Odt] 4 mg PO Q8HR PRN #20 tab.rapdis 04/29/20 Unknown Rx Trihexyphenidyl (Nf) [Artane (Nf)] 5 mg PO TID #90 08/17/21 Unknown Rx buPROPion SR [Wellbutrin SR] 100 mg PO QDAY #30 08/17/21 Unknown Rx Allergies Allergy/AdvReac Type Severity Reaction Status Date / Time benztropine [From Cogentin] Allergy Unknown Verified 09/01/21 02:34 fluphenazine [From Prolixin] Allergy Unknown Verified 09/01/21 02:34 haloperidol [From Haldol] Allergy Unknown Verified 09/01/21 02:34 ziprasidone [From Geodon] Allergy Unknown Verified 09/01/21 02:34 ED Past Medical Hx - Medications Home Medications: Home Medications Medication Instructions Recorded Confirmed Last Taken Type Trazodone HCl 150 PO DAILY 08/28/19 1 Month Ago History ~07/29/19 diphenhydrAMINE [Benadryl CAP] 25 mg PO DAILY PRN #15 capsule 02/02/20 04/13/20 Unknown Rx levoFLOXacin [Levaquin TAB] 500 mg PO QDAY #7 tablet 04/13/20 Unknown Rx Bismuth Subsalicylate 2 tab PO QID PRN #20 tab.chew 04/29/20 Unknown Rx [Pepto-Bismol] Famotidine [Pepcid] 20 mg PO BID #20 tablet 04/29/20 Unknown Rx Ondansetron [Zofran Odt] 4 mg PO Q8HR PRN #20 tab.rapdis 04/29/20 Unknown Rx Trihexyphenidyl (Nf) [Artane (Nf)] 5 mg PO TID #90 08/17/21 Unknown Rx buPROPion SR [Wellbutrin SR] 100 mg PO QDAY #30 08/17/21 Unknown Rx ED Course - Reevaluation(s) Reevaluation #1: 09/01/21 12:10 Please refer to event note dictated by me today. The patient will be discharged home. He is currently not suicidal. 09/01/21 12:10 ED Medical Decision Making - Lab Data Result diagrams: 09/01/21 03:26 09/01/21 03:26 ED Disposition Clinical Impression: Suicidal ideation, Schizoaffective disorder Disposition: 01 HOME / SELF CARE / HOMELESS Is pt being admited?: No Does the pt Need Aspirin: No Condition: Stable Instructions: Schizoaffective Disorder Referrals: PRIMARY CARE, [Primary Care Provider] - 3-5 Days <MIRNA VITAL - Last Filed: 09/03/21 06:09> ED Psych HPI - General Source: patient Mode of arrival: Ambulatory - History of Present Illness Initial Comments: pt came in due to SI with thoughts of overdosing with pills Complaint: suicidal ideation, feels depressed -: days(s) Associated Psychiatric Symptoms: depression, suicidal ideation History of same: Yes Quality: constant Improves With: none, medication Context: recent drug abuse Treatments Prior to Arrival: none If Self Harm: admits thoughts of, has plan ED Review of Systems ROS: Stated complaint: SUICIDE ATTEMPT Other details as noted in HPI Constitutional: denies: chills, fever Eyes: denies: eye pain, eye discharge, vision change ENT: denies: ear pain, throat pain Respiratory: denies: cough, shortness of breath, wheezing Cardiovascular: denies: chest pain, palpitations Endocrine: no symptoms reported Gastrointestinal: denies: abdominal pain, nausea, diarrhea Genitourinary: denies: urgency, dysuria Musculoskeletal: denies: back pain, joint swelling, arthralgia Skin: denies: rash, lesions Neurological: denies: headache, weakness, paresthesias Psychiatric: denies: anxiety, depression Hematological/Lymphatic: denies: easy bleeding, easy bruising ED Past Medical Hx - Past Medical History Previous Medical History?: Yes Hx Hypertension: Yes Hx Seizures: Yes Hx Psychiatric Treatment: Yes (anxiety) Hx Asthma: Yes - Surgical History Past Surgical History?: Yes Additional Surgical History: Shoulder surgery - Social History Smoking Status: Never Smoker Substance Use Type: None ED Physical Exam - General Limitations: No Limitations General appearance: alert, anxious - Head Head exam: Present: atraumatic, normocephalic - Eye Eye exam: Present: normal appearance - ENT ENT exam: Present: mucous membranes moist - Neck Neck exam: Present: normal inspection - Respiratory Respiratory exam: Present: normal lung sounds bilaterally. Absent: respiratory distress - Cardiovascular Cardiovascular Exam: Present: regular rate, normal rhythm. Absent: systolic murmur, diastolic murmur, rubs, gallop - GI/Abdominal GI/Abdominal exam: Present: soft, normal bowel sounds - Rectal Rectal exam: Present: deferred - Extremities Exam Extremities exam: Present: normal inspection - Back Exam Back exam: Present: normal inspection - Neurological Exam Neurological exam: Present: alert, oriented X3 - Psychiatric Psychiatric exam: Present: depressed, anxious, suicidal ideation - Skin Skin exam: Present: warm, dry, intact, normal color. Absent: rash ED Course Vital Signs 09/01/21 09/01/21 02:31 10:23 Temperature 97.8 F 98.2 F Pulse Rate 86 89 Respiratory 18 20 Rate Blood Pressure 102/70 112/78 [Left] O2 Sat by Pulse 98 98 Oximetry ED Medical Decision Making - Lab Data Result diagrams: 09/01/21 03:26 09/01/21 03:26 Critical care attestation.: If time is entered above; I have spent that time in minutes in the direct care of this critically ill patient, excluding procedure time. ED Disposition Is pt being admited?: No Does the pt Need Aspirin: No
[2021-09-01 10:29] VITALS: BP 112/78
--- NOTE | 2021-09-01 11:19 | Progress Note ---
Subjective - Reason for Consult Consult date: 09/01/21 Reason for consult: SI - Chief Complaint Chief complaint: The patient was seen today. He is known to me and was just treated for psych in the ER a couple of weeks ago for similar complaints. He says he's "stressed out and going through a lot." The patient states to me that he took benadryl in an attempt to get high and the senior care asked him to leave. He also says "and they said I kept another person up by talking all night." He says "it's making me feel suicidal." The patient says "I'm stuck with nowhere to go." The patient denies any drug use, although he has a history of amphetamines dependence. Will not recommend inpatient treatment for the patient at this time. He appears to be here for secondary means. Will give resources for [facility], rehab and refer to outpatient psychiatrist. REVIEW OF SYSTEMS Constitutional: Negative for weight loss ENT: Negative for stridor Respiratory: Negative for cough or hemoptysis All other systems reviewed and are negative MENTAL STATUS EXAMINATION General Appearance and Behavior: Age appropriate, good hygiene, wearing appropriate clothes, good eye contact, calm, cooperative Cooperation: reluctant to cooperative, but Guarded Psychomotor Behavior: Psychomotor normal Mood: okay Affect and affective range: congruent with stated mood Thought Process: goal directed Thought Content: none Speech: Normal tone and pace Suicidal Ideation: Denies Homicidal Ideation: Denies HI Impulse Control: Limited Insight and Judgment: Limited insight and judgment Memory: Normal Attention: Attentive Orientation: Alert, oriented Assessment and Plan (1) Hx of Schizoaffective disorder (2) Methamphetamine Dependence RECOMMENDATIONS d/c 1013 Continue previously prescribed meds. PSYCHOTHERAPY: Supportive psychotherapy provided MEDICAL: Per primary team DELIRIUM PRECAUTIONS: Please re-orient patient frequently, keep lights on during the day, and minimize benzodiazepines and opiates as these medications could worsen patient's confusion. 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 The patient understands if SI/HI arise he is to seek immediate assistance. Will sign. Thank you for the consult. Please contact with any questions and/or concerns. Research And Evaluation Analyst to give the patient resources for med management, CBT and drug rehab He is to abstain from all illicit drug use The patient is to follow up with outpatient psych in 7 to 14 days upon discharge Case staffed with Dr. Kearney. Mental Status Exam - Vital signs Last Vital Signs Temp 98.2 F 09/01/21 10:23 Pulse 89 09/01/21 10:23 Resp 20 09/01/21 10:23 BP 112/78 09/01/21 10:23 Pulse Ox 98 09/01/21 10:23
--- NOTE | 2021-09-01 12:09 | Event Note ---
Date: 09/01/21 We have evaluated this 36-year-old male who took some Benadryl and attempt to supposedly harm himself. He has been observed in the emergency department with normal laboratories and vital signs. When I speak to the patient he says he does not feel well but he is no longer suicidal. His mental status shows him to be alert active and oriented x3. He ate his meal. His mood is slightly depressed with congruent affect. He does not seem under the influence of any psychoactive substances. His thought pattern is coherent and relevant. His hea rt and lungs sound normal and his abdomen is soft and nontender. He is currently not suicidal. We will discharge him home.
== END 2021-09-01 15:04 | disposition home or self-care (01) ==
LOC: EEVIPCON 01:32 → ED 01:32
DX: R45.851 Suicidal ideations (principal); J45.909 Unspecified asthma, uncomplicated; F20.9 Schizophrenia, unspecified; Z88.8 Allergy status to other drugs, medicaments and biological substances
CPT/HCPCS: 36415; 80048; 80320; 85025; 99283; G0480

== ENCOUNTER 2021-09-02 00:59 | Emergency (ER) | payer SELFPAY ==
[2021-09-02] MEDS ORDERED: LORazepam 2 MG/ML VIAL IM PRN (02:06)
[2021-09-02] MEDS ORDERED: HALOPERIDOL LACTATE 5 MG/1 ML INJ IM PRN (02:06)
[2021-09-02] MEDS ORDERED: ONDANSETRON 4 MG ODT TAB PO PRN (02:06)
--- NOTE | 2021-09-02 02:10 | Emergency Department Report ---
ED General Adult HPI - General Chief complaint: Psych Stated complaint: MH/SUIDIDAL Time Seen by Provider: 09/02/21 02:05 Source: patient, RN notes reviewed, old records reviewed Mode of arrival: Ambulatory Limitations: Other (The patient is awake but will not speak to myself. He is uncooperative) - History of Present Illness Initial comments: The patient was evaluated in the emergency department for symptoms described in the history of present illness. He/she was evaluated in the context of the global COVID-19 pandemic, which necessitated consideration that the patient might be at risk for infection with the virus that causes COVID-19. Institu tional protocols and algorithms that pertain to the evaluation of patients at risk for COVID-19 are in a state of rapid change based on information released by regulatory bodies including the CDC and federal and state organizations. These policies and algorithms were followed during the patient's care in the emergency department. Please note that these policies, procedures and recommendations changed on a rapid basis. The patient is a 36-year-old gentleman with an extensive psychiatric history. He was discharged from our emergency room yesterday. History obtained by external examining patient, review of old charts, and discussion with nursing staff. Patient reportedly presented to triage today, with complaint of suicidality and intention to overdose. The nurse who initially triaged him indicated that he is awake, alert, oriented, and ambulatory with a steady gait. The patient reportedly walked back to the main emergency room, to change into green scrubs. It is unclear if the patient overdosed or ingested on anything. Patient reportedly throughout. When I evaluate the patient, he is awake, and not talking to me. He will not answer any of my questions. He would not describe the qualitative nature of symptoms, exacerbating factors, relieving factors or aggravating factors. Patient is not accompanied by friends or family at this time for collateral information or additional information. - Related Data Home Medications Medication Instructions Recorded Confirmed Last Taken Trazodone HCl 150 PO DAILY 08/28/19 1 Month Ago ~07/29/19 Previous Rx's Medication Instructions Recorded Last Taken Type diphenhydrAMINE [Benadryl CAP] 25 mg PO DAILY PRN #15 capsule 02/02/20 Unknown Rx levoFLOXacin [Levaquin TAB] 500 mg PO QDAY #7 tablet 04/13/20 Unknown Rx Bismuth Subsalicylate 2 tab PO QID PRN #20 tab.chew 04/29/20 Unknown Rx [Pepto-Bismol] Famotidine [Pepcid] 20 mg PO BID #20 tablet 04/29/20 Unknown Rx Ondansetron [Zofran Odt] 4 mg PO Q8HR PRN #20 tab.rapdis 04/29/20 Unknown Rx Trihexyphenidyl (Nf) [Artane (Nf)] 5 mg PO TID #90 08/17/21 Unknown Rx buPROPion SR [Wellbutrin SR] 100 mg PO QDAY #30 08/17/21 Unknown Rx Allergies Allergy/AdvReac Type Severity Reaction Status Date / Time benztropine [From Cogentin] Allergy Unknown Verified 09/01/21 02:34 fluphenazine [From Prolixin] Allergy Unknown Verified 09/01/21 02:34 haloperidol [From Haldol] Allergy Unknown Verified 09/01/21 02:34 ziprasidone [From Geodon] Allergy Unknown Verified 09/01/21 02:34 ED Review of Systems ROS: Stated complaint: MH/SUIDIDAL Other details as noted in HPI Comment: Unobtainable due to pts medical conditions ED Past Medical Hx - Past Medical History Hx Hypertension: Yes Hx Seizures: Yes Hx Psychiatric Treatment: Yes (anxiety) Hx Asthma: Yes - Surgical History Additional Surgical History: Shoulder surgery - Social History Smoking Status: Never Smoker Substance Use Type: None - Medications Home Medications: Home Medications Medication Instructions Recorded Confirmed Last Taken Type Trazodone HCl 150 PO DAILY 08/28/19 1 Month Ago History ~07/29/19 diphenhydrAMINE [Benadryl CAP] 25 mg PO DAILY PRN #15 capsule 02/02/20 04/13/20 Unknown Rx levoFLOXacin [Levaquin TAB] 500 mg PO QDAY #7 tablet 04/13/20 Unknown Rx Bismuth Subsalicylate 2 tab PO QID PRN #20 tab.chew 04/29/20 Unknown Rx [Pepto-Bismol] Famotidine [Pepcid] 20 mg PO BID #20 tablet 04/29/20 Unknown Rx Ondansetron [Zofran Odt] 4 mg PO Q8HR PRN #20 tab.rapdis 04/29/20 Unknown Rx Trihexyphenidyl (Nf) [Artane (Nf)] 5 mg PO TID #90 08/17/21 Unknown Rx buPROPion SR [Wellbutrin SR] 100 mg PO QDAY #30 08/17/21 Unknown Rx ED Physical Exam - General Limitations: Other (The patient will not speak to me) General appearance: alert, in no apparent distress - Head Head exam: Present: atraumatic, normocephalic - Eye Eye exam: Present: normal appearance, PERRL, EOMI - ENT ENT exam: Present: normal exam, normal orophraynx, mucous membranes moist, normal external ear exam - Neck Neck exam: Present: normal inspection, full ROM. Absent: tenderness, meningismus - Respiratory Respiratory exam: Present: normal lung sounds bilaterally. Absent: respiratory distress, wheezes, rales, rhonchi, stridor, decreased breath sounds - Cardiovascular Cardiovascular Exam: Present: regular rate, normal rhythm, normal heart sounds. Absent: bradycardia, tachycardia, irregular rhythm, systolic murmur, diastolic murmur, rubs, gallop - GI/Abdominal GI/Abdominal exam: Present: soft. Absent: distended, tenderness, guarding, noemí ound, rigid, pulsatile mass - Rectal Rectal exam: Present: deferred - Extremities Exam Extremities exam: Present: normal inspection, full ROM (Nursing team reports the patient is ambulatory and moving 4 extremities), other (2+ pulses noted in the bilateral upper and lower extremities. There is no palpable cord. negative Homans sign. Muscular compartments are soft. The pelvis is stable.). Absent: calf tenderness - Back Exam Back exam: Present: normal inspection. Absent: tenderness, CVA tenderness (R), CVA tenderness (L), paraspinal tenderness, vertebral tenderness - Neurological Exam Neurological exam: Present: altered, other (There is no facial droop. Nursing team reports that the patient is ambulatory and moving 4 extremities.) - Psychiatric Psychiatric exam: Present: other (The patient is nonverbal) - Skin Skin exam: Present: warm, dry, intact, normal color. Absent: rash ED Course Vital Signs 09/02/21 09/02/21 09/02/21 01:23 02:19 03:41 Temperature 97.7 F 98.0 F Pulse Rate 96 H 92 H Respiratory 16 12 Rate Blood Pressure 106/73 Blood Pressure 118/70 [Left] O2 Sat by Pulse 97 98 100 Oximetry 09/02/21 03:43 Temperature Pulse Rate Respiratory 12 Rate Blood Pressure Blood Pressure [Left] O2 Sat by Pulse 100 Oximetry - Reevaluation(s) Reevaluation #1: 09/02/21 03:05 Differential diagnosis, including not limited to: Malingering, conversion disorder, overdose, psychosis Assessment and plan: 36-year-old gentleman, who is currently afebrile, with reassuring vital signs, who reportedly walked into the emergency room, awake, alert, oriented, x3, now currently awake, moving 4 extremities and ambulatory with a steady gait, as per verbal report from nursing staff, who will not talk to me. He reportedly threw up. Place patient on 1013. Elevate head of bed, n.p.o., and aspiration precautions. EKG unremarkable. X-ray chest abdomen pelvis unremarkable. Obtain appropriate laboratory studies. Obtain CT scan of the brain, abdomen pelvis. Placed patient on mental health hold, and request psychiatric consultation and evaluation. We do not know for sure if the patient actually overdosed on anything, therefore, would not administer charcoal. In addition, the patient reportedly threw up, and is not able to participate in his examination, reluctant to administer charcoal because of potential for aspiration Reevaluation #2: 09/02/21 03:49 The patient is reassessed. He is in no acute distress. There is no active vomiting. He is resting comfortably in his stretcher. Urinalysis, drug screen, and COVID swab pending. CT scan brain negative for acute findings. CT scan abdomen pelvis negative for acute findings. Emergency room will follow along as the patient provides urinalysis, drug screen, and COVID swab. These do not preclude psychiatric consultation, evaluation and placement. At this point time, this patient does not appear to have an immediate medical contraindication to psychiatric admission, evaluation, consultation and placeme nt. Please note that this patient has received haloperidol without incident in the past. ED Medical Decision Making - Lab Data Result diagrams: 09/02/21 02:27 09/02/21 02:27 Vital Signs 09/02/21 09/02/21 01:23 02:19 Temperature 97.7 F Pulse Rate 96 H Respiratory 16 Rate Blood Pressure 106/73 O2 Sat by Pulse 97 98 Oximetry Lab Results 09/02/21 09/02/21 09/02/21 Range/Units 02:27 02:27 02:27 WBC 6.3 (4.5-11.0) K/mm3 RBC 4.57 (3.65-5.03) M/mm3 Hgb 14.1 (11.8-15.2) gm/dl Hct 42.1 (35.5-45.6) % MCV 92 (84-94) fl MCH 31 (28-32) pg MCHC 34 (32-34) % RDW 14.0 (13.2-15.2) % Plt Count 233 (140-440) K/mm3 Lymph % (Auto) 13.4 (13.4-35.0) % [place] % (Auto) 5.3 (0.0-7.3) % Eos % (Auto) 1.4 (0.0-4.3) % Baso % (Auto) 0.4 (0.0-1.8) % Lymph # (Auto) 0.8 L (1.2-5.4) K/mm3 [place] # (Auto) 0.3 (0.0-0.8) K/mm3 Eos # (Auto) 0.1 (0.0-0.4) K/mm3 Baso # (Auto) 0.0 (0.0-0.1) K/mm3 Seg Neutrophils % 79.5 H (40.0-70.0) % Seg Neutrophils # 5.0 (1.8-7.7) K/mm3 Sodium 138 (137-145) mmol/L Potassium 3.9 (3.6-5.0) mmol/L Chloride 99.1 (98-107) mmol/L Carbon Dioxide 22 (22-30) mmol/L Anion Gap 21 mmol/L BUN 15 (9-20) mg/dL Creatinine 0.7 L (0.8-1.3) mg/dL Estimated GFR > 60 ml/min BUN/Creatinine Ratio 21 % Glucose 106 H (75-100) mg/dL Calcium 9.3 (8.4-10.2) mg/dL Total Bilirubin 0.40 (0.1-1.2) mg/dL AST 11 (5-40) units/L ALT 9 (7-56) units/L Alkaline Phosphatase 53 (35-129) units/L Total Creatine Kinase (55-170) units/L Total Protein 7.2 (6.3-8.2) g/dL Albumin 4.5 (3.9-5) g/dL Albumin/Globulin Ratio 1.7 % Salicylates < 0.3 L (2.8-20.0) mg/dL Acetaminophen (10.0-30.0) ug/mL Plasma/Serum Alcohol (0-0.07) % 09/02/21 09/02/21 09/02/21 Range/Units 02: 02:27 02:27 WBC (4.5-11.0) K/mm3 RBC (3.65-5.03) M/mm3 Hgb (11.8-15.2) gm/dl Hct (35.5-45.6) % MCV (84-94) fl MCH (28-32) pg MCHC (32-34) % RDW (13.2-15.2) % Plt Count (140-440) K/mm3 Lymph % (Auto) (13.4-35.0) % [place] % (Auto) (0.0-7.3) % Eos % (Auto) (0.0-4.3) % Baso % (Auto) (0.0-1.8) % Lymph # (Auto) (1.2-5.4) K/mm3 [place] # (Auto) (0.0-0.8) K/mm3 Eos # (Auto) (0.0-0.4) K/mm3 Baso # (Auto) (0.0-0.1) K/mm3 Seg Neutrophils % (40.0-70.0) % Seg Neutrophils # (1.8-7.7) K/mm3 Sodium (137-145) mmol/L Potassium (3.6-5.0) mmol/L Chloride (98-107) mmol/L Carbon Dioxide (22-30) mmol/L Anion Gap mmol/L BUN (9-20) mg/dL Creatinine (0.8-1.3) mg/dL Estimated GFR ml/min BUN/Creatinine Ratio % Glucose (75-100) mg/dL Calcium (8.4-10.2) mg/dL Total Bilirubin (0.1-1.2) mg/dL AST (5-40) units/L ALT (7-56) units/L Alkaline Phosphatase (35-129) units/L Total Creatine Kinase 97 (55-170) units/L Total Protein (6.3-8.2) g/dL Albumin (3.9-5) g/dL Albumin/Globulin Ratio % Salicylates (2.8-20.0) mg/dL Acetaminophen 5.0 L (10.0-30.0) ug/mL Plasma/Serum Alcohol < 0.01 (0-0.07) % - EKG Data -: EKG Interpreted by N[facility] EKG shows normal: sinus rhythm Rate: normal - EKG Data 09/02/21 03:01 The EKG is interpreted at 0200 AM Sinus rhythm, 84 bpm. Normal axis, normal P wave axis, high left ventricular voltage, and motion artifact. QTC 4 5 7 ms. This is an abnormal EKG. This is not a STEMI. - Radiology Data Radiology results: pending, report reviewed, image reviewed ACUTE ABDOMEN SERIES 3 VIEWS 0218 INDICATION: n/v COMPARISON: Chest x-ray 05/27/2017 currently unavailable FINDINGS: Lung mullins clear. No pneumoperitoneum. No evidence of obstruction. Possible mild constipation. Small calcific density right lateral mid abdomen is not renal but possibly could be in the gallbladder. Signer Name: Peewee Sauceda MD Signed: 09/02/2021 1:38 AM Workstation Name: [facility] CT HEAD WITHOUT CONTRAST INDICATION: Medical Clearance Psych TECHNIQUE: All CT scans at this location are performed using CT dose reduction for ALARA by means of automated exposure control. COMPARISON: 05/27/2017 FINDINGS: BRAIN: No hemorrhage or mass effect are seen. No evidence of acute infarction is noted. ORBITS: Intraorbital contents appear within normal limits. Interval moderate c ompression of the left medial orbital wall in the lamina papyracea is seen. SOFT TISSUES OF HEAD: Normal. CALVARIUM: Normal. VISUALIZED PARANASAL SINUSES AND MASTOID AIR CELLS: Clear. ADDITIONAL FINDINGS: None. IMPRESSION: No acute intracranial abnormality. Interval change in the left orbital wall, presumably from interval trauma since 2017. Signer Name: Peewee Sauceda MD Signed: 09/02/2021 2:28 AM Workstation Name: [facility] [address] [place] [address] Cat Scan Report Signed Patient: STEPHANIE WELDON MR#: [id number] : 1985 Acct:[id number] Age/Sex: 36 / M ADM Date: 09/02/21 Loc: ED Attending Dr: Ordering Physician: DAREK WHITNEY MD Date of Service: 09/02/21 Procedure(s): CT abdomen pelvis wo con Accession Number(s): [id number] cc: DAREK WHITNEY MD CT ABDOMEN AND PELVIS WITHOUT CONTRAST INDICATION: Nausea and vomiting, questionable overdose CONTRAST: Without IV COMPARISON: 04/29/[address] scans at this location are performed using CT dose reduction for ALARA by means of automated exposure control. FINDINGS: Moderate artifact is seen from the patient's left arm. Lung bases clear. No pneumoperitoneum. Gallbladder and bile ducts normal. No abdominal masses. No lymphadenopathy. No inflammatory changes. No free fluid. No urinary tract calculi or evidence of obstruction. Stomach is prominently distended with food and air including high density material dependently. No duodenal abnormali ties are seen. Small bowel loops are mildly distended with fluid but not dilated. Gas and stool are seen throughout the colon without dilatation or significant distention. Appendix is not visualized. No obvious ingested foreign body is noted. IMPRESSION: 1. Small bowel pattern might suggest mild enteritis but is not obviously obstructive 2. Prominent distention of the stomach without obvious s ource 3. No ingested foreign bodies are obvious. Signer Name: Peewee Sauceda MD Signed: 09/02/2021 3:34 AM Workstation Name: [id number] Transcribed By: GJ Dictated By: Peewee Sauceda MD Electronically Authenticated By: Peewee Sauceda MD Signed Date/Time: 09/02/21 0334 DD/ 7 Critical care attestation.: If time is entered above; I have spent that time in minutes in the direct care of this critically ill patient, excluding procedure time. ED Disposition Clinical Impression: Medical clearance for psychiatric admission Disposition: [address] [place] [address] Is pt being admited?: No Does the pt Need Aspirin: No Condition: Good
--- NOTE | 2021-09-02 02:43 | XRay Report ---
ACUTE ABDOMEN SERIES 3 VIEWS 0218 INDICATION: n/v COMPARISON: Chest x-ray 05/27/2017 currently unavailable FINDINGS: Lung mullins clear. No pneumoperitoneum. No evidence of obstruction. Possible mild constipat ion. Small calcific density right lateral mid abdomen is not renal but possibly could be in the gallb ladder. Signer Name: Peewee Sauceda MD Signed: 09/02/2021 2:38 AM Workstation Name: [id number]
[2021-09-02 03:06] LABS: Basophils % (Auto) 0.4 % (0.0-1.8); Eosinophils # (Auto) 0.1 K/mm3 (0.0-0.4); Eosinophils % (Auto) 1.4 % (0.0-4.3); Hematocrit 42.1 % (35.5-45.6); Hemoglobin 14.1 gm/dl (11.8-15.2); Lymphocytes # (Auto) 0.8 K/mm3 (1.2-5.4); Lymphocytes % (Auto) 13.4 % (13.4-35.0); Mean Corpuscular HGB Conc 34 % (32-34); Mean Corpuscular Volume 92 fl (84-94); Monocytes # (Auto) 0.3 K/mm3 (0.0-0.8); Monocytes % (Auto) 5.3 % (0.0-7.3); Platelet Count 233 K/mm3 (140-440); Red Blood Count 4.57 M/mm3 (3.65-5.03)
[2021-09-02 03:28] LABS: Alanine Aminotransferase 9 units/L (7-56); Albumin 4.5 g/dL (3.9-5); Blood Urea Nitrogen 15 mg/dL (9-20); Calcium 9.3 mg/dL (8.4-10.2); Hemolysis Index 8
[2021-09-02 03:30] LABS: BUN/Creatinine Ratio 21
--- NOTE | 2021-09-02 03:33 | Cat Scan Report ---
CT HEAD WITHOUT CONTRAST INDICATION: Medical Clearance Psych TECHNIQUE: All CT scans at this location are performed using CT dose reduction for ALARA by means of automated exposure control. COMPARISON: 05/27/2017 FINDINGS: BRAIN: No hemorrhage or mass effect are seen. No evidence of acute infarction is noted. ORBITS: Intraorbital contents appear within normal limits. Interval moderate compression of the left medial orbital wall in the lamina papyracea is seen. SOFT TISSUES OF HEAD: Normal. CALVARIUM: Normal. VISUALIZED PARANASAL SINUSES AND MASTOID AIR CELLS: Clear. ADDITIONAL FINDINGS: None. IMPRESSION: No acute intracranial abnormality. Interval change in the left orbital wall, presumably f rom interval trauma since 2018. Signer Name: Peewee Sauceda MD Signed: 09/02/2021 3:28 AM Workstation Name: [id number]
--- NOTE | 2021-09-02 03:39 | Cat Scan Report ---
CT ABDOMEN AND PELVIS WITHOUT CONTRAST INDICATION: Nausea and vomiting, questionable overdose CONTRAST: Without IV COMPARISON: 04/29/[address] scans at this location are performed using CT dose reduction for ALARA by means of automated e xposure control. FINDINGS: Moderate artifact is seen from the patient's left arm. Lung bases clear. No pneumoperitoneum. Gallbladder and bile ducts normal. No abdominal masses. No lym phadenopathy. No inflammatory changes. No free fluid. No urinary tract calculi or evidence of obstruc tion. Stomach is prominently distended with food and air including high density material dependently. No du odenal abnormalities are seen. Small bowel loops are mildly distended with fluid but not dilated. Gas and stool are seen throughout the colon without dilatation or significant distention. Appendix is no t visualized. No obvious ingested foreign body is noted. IMPRESSION: 1. Small bowel pattern might suggest mild enteritis but is not obviously obstructive 2. Prominent distention of the stomach without obvious source 3. No ingested foreign bodies are obvious. Signer Name: Peewee Sauceda MD Signed: 09/02/2021 3:34 AM Workstation Name: [id number]
--- NOTE | 2021-09-02 10:40 | Consultation ---
History of Present Illness - Reason for Consult Consult date: 09/02/21 Reason for consult: Hallucinations - History of Present Psychiatric Illness The patient is a 36 year old male with history of schizophrenia and Methamphetamine abuse who was recently discharged. In my encounter with the patient, he reports that he took a handful of pills yesterday " I was trying to kill myself." The patient is unable to state stressor. He endorses suicidal ideation with a plan to " take pills, voices telling me to take pills and I see a cat flying over the table. " PAST PSYCHIATRIC HISTORY: Diagnoses:Schizophrenia, Methamphetamine abuse Suicide attempts or Self-harm behavior:Yes Prior psychiatric hospitalizations: Yes Substance Abuse history: Meth Previous psychiatric medications tried:Invega, Wellbutrin Outpatient treatment:Unknown PAST MEDICAL HISTORY: None reported or document Family Psychiatric History: None reported or documented SOCIAL HISTORY Marital Status: single Living Arrangements: Lives in a longterm Employment Status: Unemployed Access to guns/weapons: Denies Education:12th grade History of Abuse: Denies Legal History: Denies REVIEW OF SYSTEMS Constitutional: Negative for weight loss ENT: Negative for stridor Respiratory: Negative for cough or hemoptysis All other systems reviewed and are negative MENTAL STATUS EXAMINATION General Appearance and Behavior: Age appropriate, wearing appropriate clothes, cooperative, polite with questioning, good eye contact, calm, polite Cooperation: cooperative Psychomotor Behavior: Psychomotor normal Mood: calm Affect and affective range: Congruent with stated mood Thought Process: Illogical Thought Content:Hallucinations Speech: Normal volume, Regular rate and rhythm Suicidal Ideation: Yes Homicidal Ideation: Denies Hallucination: Auditory/visual Delusions: None elicited Impulse Control: limited Insight and Judgment: Limited Memory: intact Attention: attentive Orientation: Alert and oriented Diagnoses: Schizophrenia Treatment Plan 1013 Continue home meds Risperidone 2mg po BID PSYCHOTHERAPY: Supportive psychotherapy provided MEDICAL: Per primary team DELIRIUM PRECAUTIONS: Please re-orient patient frequently, keep lights on during the day, and minimize benzodiazepines and opiates as these medications could worsen patient's confusion. GRAIN OPERATIONS MANAGER: Per medical team DISPOSITION: Recommend acute psychiatric inpatient treatment. Will follow. Thank you for the consult. Case staffed with Dr. Kearney Medications and Allergies Medications and Allergies Allergies Allergy/AdvReac Type Severity Reaction Status Date / Time benztropine [From Cogentin] Allergy Unknown Verified 09/01/21 02:34 fluphenazine [From Prolixin] Allergy Unknown Verified 09/01/21 02:34 haloperidol [From Haldol] Allergy Unknown Verified 09/01/21 02:34 ziprasidone [From Geodon] Allergy Unknown Verified 09/01/21 02:34 Home Medications Medication Instructions Recorded Confirmed Last Taken Type Trazodone HCl 150 PO DAILY 08/28/19 1 Month Ago History ~07/29/19 diphenhydrAMINE [Benadryl CAP] 25 mg PO DAILY PRN #15 capsule 02/02/20 04/13/20 Unknown Rx levoFLOXacin [Levaquin TAB] 500 mg PO QDAY #7 tablet 04/13/20 Unknown Rx Bismuth Subsalicylate 2 tab PO QID PRN #20 tab.chew 04/29/20 Unknown Rx [Pepto-Bismol] Famotidine [Pepcid] 20 mg PO BID #20 tablet 04/29/20 Unknown Rx Ondansetron [Zofran Odt] 4 mg PO Q8HR PRN #20 tab.rapdis 04/29/20 Unknown Rx Trihexyphenidyl (Nf) [Artane (Nf)] 5 mg PO TID #90 08/17/21 Unknown Rx buPROPion SR [Wellbutrin SR] 100 mg PO QDAY #30 08/17/21 Unknown Rx Active Meds: Active Medications Haloperidol Lactate (Haloperidol Lactate 5 Mg/1 Ml Inj) 5 mg IM Q6HR PRN PRN Reason: Agitation Lorazepam (Lorazepam 2 Mg/Ml Vial) 2 mg IM Q4HR PRN PRN Reason: Agitation Ondansetron HCl (Ondansetron 4 Mg Odt Tab) 4 mg PO Q6HR PRN PRN Reason: Nausea Mental Status Exam - Vital signs Last Vital Signs Temp 98.0 F 09/02/21 03:41 Pulse 92 H 09/02/21 03:41 Resp 12 09/02/21 03:43 BP 118/70 09/02/21 03:41 Pulse Ox 100 09/02/21 03:43 Results Result Diagrams: 09/02/21 02:27 09/02/21 02:27 Abnormal lab results 09/02/21 09/02/21 09/02/21 Range/Units 02:27 02:27 02:27 Lymph # (Auto) 0.8 L (1.2-5.4) K/mm3 Seg Neutrophils % 79.5 H (40.0-70.0) % Creatinine 0.7 L (0.8-1.3) mg/dL Glucose 106 H (75-100) mg/dL Salicylates < 0.3 L (2.8-20.0) mg/dL Acetaminophen (10.0-30.0) ug/mL 09/02/21 Range/Units 02:27 Lymph # (Auto) (1.2-5.4) K/mm3 Seg Neutrophils % (40.0-70.0) % Creatinine (0.8-1.3) mg/dL Glucose (75-100) mg/dL Salicylates (2.8-20.0) mg/dL Acetaminophen 5.0 L (10.0-30.0) ug/mL All other labs normal.
--- NOTE | 2021-09-02 11:40 | Event Note ---
Date: 09/02/21 The patient had no significant events overnight. On my exam his mood seems depressed with flat affect. Reports suicidal ideations. His thought pattern is relevant and coherent although somewhat slow. There is no similar the influence of any psychoactive substances. We will continue to observe and follow psychiatry recommendations.
[2021-09-02 13:46] LABS: Benzodiazepines Screen,Urine Negative; Methadone Screen,Urine Negative; Opiate Screen,Urine Negative
[2021-09-02 13:52] LABS: Amorphous Crystals,Urine 3+; Bacteria,Urine 1+ /HPF (Negative); Bilirubin,Urine NEG (Negative); Blood,Urine NEG (Negative); Calcium Oxalate Crystals,Urine 1+; Color,Urine Yellow (Yellow); Mucus,Urine 1+ /HPF; Protein,Urine <15 mg/dL mg/dL (Negative)
[2021-09-02 14:10] LABS: Amphetamine Screen,Urine Positive; Cannabinoid Screen,Urine Positive; Cocaine Screen,Urine Negative
[2021-09-02] MEDS: risperiDONE 1 MG TAB PO SCH (22:05)
[2021-09-03] MEDS: risperiDONE 1 MG TAB PO SCH ×2 (10:45→21:49)
--- NOTE | 2021-09-03 10:59 | Progress Note ---
Subjective - Reason for Consult Consult date: 09/03/21 Reason for consult: Suicidal ideation - Chief Complaint Chief complaint: The patient was seen this morning. He is calm, alert and oriented x2. The patient continues to endorse depression and suicidal ideation with a plan to overdose on pills; also continues to have auditory and visual hallucinations. Per note, the patient is compliant with psychotropic meds, tolerating fluids and food. REVIEW OF SYSTEMS Constitutional: Negative for weight loss ENT: Negative for stridor Respiratory: Negative for cough or hemoptysis All other systems reviewed and are negative MENTAL STATUS EXAMINATION General Appearance and Behavior: Age appropriate, wearing appropriate clothes, cooperative, polite with questioning, good eye contact, calm, polite Cooperation: cooperative Psychomotor Behavior: Psychomotor normal Mood: calm Affect and affective range: Congruent with stated mood Thought Process: Illogical Thought Content:Hallucinations Speech: Normal volume, Regular rate and rhythm Suicidal Ideation: Yes Homicidal Ideation: Denies Hallucination: Auditory/visual Delusions: None elicited Impulse Control: limited Insight and Judgment: Limited Memory: intact Attention: attentive Orientation: Alert and oriented Diagnoses: Schizophrenia Treatment Plan 1013 Continue home meds Risperidone 2mg po BID PSYCHOTHERAPY: Supportive psychotherapy provided MEDICAL: Per primary team DELIRIUM PRECAUTIONS: Please re-orient patient frequently, keep lights on during the day, and minimize benzodiazepines and opiates as these medications could worsen patient's confusion. 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 Will follow. Thank you for the consult. Case staffed with Dr. Kearney Medications and Allergies Mental Status Exam - Vital signs Last Vital Signs Temp 98.7 F 09/02/21 21:12 Pulse 88 09/02/21 21:12 Resp 16 09/02/21 21:12 BP 105/74 09/02/21 21:12 Pulse Ox 100 09/02/21 21:12
--- NOTE | 2021-09-03 11:22 | Event Note ---
Date: 09/03/21 No events overnight patient has been calm. On my interview the patient is still suicidal with a plan to kill himself by doing an overdose of pills. He is alert active oriented x3. His mood seems depressed with congruent affect. He does not seem under the influence of any psychoactive substances and his thought pattern is relevant and coherent. We will continue to follow
--- NOTE | 2021-09-04 10:12 | Event Note ---
Date: 09/04/21 The patient was evaluated in the emergency department for symptoms described in the history of present illness. He/she was evaluated in the context of the global COVID-19 pandemic, which necessitated consideration that the patient might be at risk for infection with the virus that causes COVID-19. Institutional protocols and algorithms that pertain to the evaluation of patients at risk for COVID-19 are in a state of rapid change based on information released by regulatory bodies including the CDC and federal and state organizations. These policies and algorithms were followed during the patient's care in the emergency department. Please note that these policies, procedures and recommendations changed on a rapid basis. Laboratory studies, vital signs, nursing documentation, ER documentation, and psychiatric documentation are reviewed and appreciated. No events or concerns are reported to myself. The patient is awake and not in any acute distress The patient was deemed medically suitable for psychiatric disposition and placement during his initial ER evaluation. The patient continues to remain medically suitable for psychiatric placement and disposition. He is currently pending psychiatric placement. He remains medically suitable for psychiatric placement and disposition at this time. Vital Signs 09/02/21 09/02/21 09/02/21 01:23 02:19 03:41 Temperature 97.7 F 98.0 F Pulse Rate 96 H 92 H Respiratory 16 12 Rate Blood Pressure 106/73 Blood Pressure 118/70 [Left] O2 Sat by Pulse 97 98 100 Oximetry 09/02/21 09/02/21 09/03/21 03:43 21:12 12:41 Temperature 98.7 F 98.2 F Pulse Rate 88 68 Respiratory 12 16 15 Rate Blood Pressure Blood Pressure 105/74 107/82 [Left] O2 Sat by Pulse 100 100 99 Oximetry 09/03/21 19:49 Temperature 98.2 F Pulse Rate 70 Respiratory 18 Rate Blood Pressure Blood Pressure 103/80 [Left] O2 Sat by Pulse 98 Oximetry
[2021-09-04] MEDS: risperiDONE 1 MG TAB PO SCH ×2 (10:18→21:33)
--- NOTE | 2021-09-04 10:30 | Progress Note ---
Subjective - Reason for Consult Consult date: 09/04/21 Reason for consult: suicidal - Chief Complaint Chief complaint: The patient was seen this morning. He is calm, alert and oriented x2. He presents with flat affect. The patient states he feels the same as yesterday. He reports getting Invega from [employer] but unable to state when. REVIEW OF SYSTEMS Constitutional: Negative for weight loss ENT: Negative for stridor Respiratory: Negative for cough or hemoptysis All other systems reviewed and are negative MENTAL STATUS EXAMINATION General Appearance and Behavior: Age appropriate, wearing appropriate clothes, cooperative, polite with questioning, good eye contact, calm, polite Cooperation: cooperative Psychomotor Behavior: Psychomotor normal Mood: calm Affect and affective range: Congruent with stated mood Thought Process: Illogical Thought Content:Hallucinations Speech: Normal volume, Regular rate and rhythm Suicidal Ideation: Yes Homicidal Ideation: Denies Hallucination: Auditory/visual Delusions: None elicited Impulse Control: limited Insight and Judgment: Limited Memory: intact Attention: attentive Orientation: Alert and oriented Diagnoses: Schizophrenia Treatment Plan 1013 Continue home meds Risperidone 2mg po BID PSYCHOTHERAPY: Supportive psychotherapy provided MEDICAL: Per primary team DELIRIUM PRECAUTIONS: Please re-orient patient frequently, keep lights on during the day, and minimize benzodiazepines and opiates as these medications could worsen patient's confusion. 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 Will follow. Thank you for the consult. Case staffed with Dr. Kearney Medications and Allergies Mental Status Exam - Vital signs Last Vital Signs Temp 98.2 F 09/03/21 19:49 Pulse 70 09/03/21 19:49 Resp 18 09/03/21 19:49 BP 103/80 09/03/21 19:49 Pulse Ox 98 09/03/21 19:49
--- NOTE | 2021-09-05 09:30 | Progress Note ---
Subjective - Reason for Consult Consult date: 09/05/21 Reason for consult: suicidal ideation - Chief Complaint Chief complaint: The patient was seen this morning. He continues to present with flat affect and endorsing suicidal ideation. REVIEW OF SYSTEMS Constitutional: Negative for weight loss ENT: Negative for stridor Respiratory: Negative for cough or hemoptysis All other systems reviewed and are negative MENTAL STATUS EXAMINATION General Appearance and Behavior: Age appropriate, wearing appropriate clothes, cooperative, polite with questioning, good eye contact, calm, polite Cooperation: cooperative Psychomotor Behavior: Psychomotor normal Mood: calm Affect and affective range: Congruent with stated mood Thought Process: Illogical Thought Content:Hallucinations Speech: Normal volume, Regular rate and rhythm Suicidal Ideation: Yes Homicidal Ideation: Denies Hallucination: Auditory/visual Delusions: None elicited Impulse Control: limited Insight and Judgment: Limited Memory: intact Attention: attentive Orientation: Alert and oriented Diagnoses: Schizophrenia Treatment Plan 1013 Continue home meds Risperidone 2mg po BID PSYCHOTHERAPY: Supportive psychotherapy provided MEDICAL: Per primary team DELIRIUM PRECAUTIONS: Please re-orient patient frequently, keep lights on during the day, and minimize benzodiazepines and opiates as these medications could worsen patient's confusion. 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 Will follow. Thank you for the consult. Case staffed with Dr. Kearney Medications and Allergies Mental Status Exam - Vital signs Last Vital Signs Temp 98.2 F 09/05/21 08:59 Pulse 111 H 09/05/21 08:59 Resp 18 09/05/21 08:59 BP 113/80 09/05/21 08:59 Pulse Ox 98 09/05/21 08:54
[2021-09-05] MEDS: risperiDONE 1 MG TAB PO SCH (10:57)
--- NOTE | 2021-09-05 11:45 | Event Note ---
Date: 09/05/21 vss, no distress, no events overnight awaiting placement of [facility] facility
--- NOTE | 2021-09-06 10:20 | Progress Note ---
Subjective - Reason for Consult Consult date: 09/06/21 Reason for consult: suicidal - Chief Complaint Chief complaint: The patient was seen this morning. He continues to present with flat affect and endorsing suicidal ideation. REVIEW OF SYSTEMS Constitutional: Negative for weight loss ENT: Negative for stridor Respiratory: Negative for cough or hemoptysis All other systems reviewed and are negative MENTAL STATUS EXAMINATION General Appearance and Behavior: Age appropriate, wearing appropriate clothes, cooperative, polite with questioning, good eye contact, calm, polite Cooperation: cooperative Psychomotor Behavior: Psychomotor normal Mood: calm Affect and affective range: Congruent with stated mood Thought Process: Illogical Thought Content:Hallucinations Speech: Normal volume, Regular rate and rhythm Suicidal Ideation: Yes Homicidal Ideation: Denies Hallucination: Auditory/visual Delusions: None elicited Impulse Control: limited Insight and Judgment: Limited Memory: intact Attention: attentive Orientation: Alert and oriented Diagnoses: Schizophrenia Treatment Plan 1013 Continue home meds Risperidone 2mg po BID PSYCHOTHERAPY: Supportive psychotherapy provided MEDICAL: Per primary team DELIRIUM PRECAUTIONS: Please re-orient patient frequently, keep lights on during the day, and minimize benzodiazepines and opiates as these medications could worsen patient's confusion. 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 Will follow. Thank you for the consult. Case staffed with Dr. Kearney Medications and Allergies Mental Status Exam - Vital signs Last Vital Signs Temp 98.2 F 09/05/21 08:59 Pulse 111 H 09/05/21 08:59 Resp 16 09/06/21 02:53 BP 113/80 09/05/21 08:59 Pulse Ox 100 09/06/21 02:53
--- NOTE | 2021-09-06 11:25 | Event Note ---
36-year-old male currently on 1013 for suicidal ideation. As needed and scheduled meds have been ordered. Patient noted to be tachycardic on a.m. vital signs. Repeat vitals requested. Patient did not receive evening or morning dose of Risperdal as per JUN. Placement pending
[2021-09-06 11:45] VITALS: BP 132/88
== END 2021-09-06 15:21 ==
LOC: EEVIPCON 00:59 → ED 00:59
DX: R45.851 Suicidal ideations (principal); Z13.30 Encounter for screening examination for mental health and behavioral disorders, unspecified; Z20.822 Contact with and (suspected) exposure to COVID-19
CPT/HCPCS: 36415; 70450; 74022; 74176; 80053; 80307; 81001; 82550; 84443; 85025; 93005; 96372; 99285; J2060; U0003; 80320; G0480

== ENCOUNTER 2021-09-25 14:18 | Emergency (ER) | payer SELFPAY ==
[2021-09-25 17:56] LABS: Eosinophils % (Auto) 0.8 % (0.0-4.3); Hematocrit 45.5 % (35.5-45.6); Lymphocytes # (Auto) 1.3 K/mm3 (1.2-5.4); Lymphocytes % (Auto) 24.9 % (13.4-35.0); Mean Corpuscular HGB Conc 33 % (32-34); Mean Corpuscular Volume 94 fl (84-94); Monocytes # (Auto) 0.4 K/mm3 (0.0-0.8); Monocytes % (Auto) 8.7 % (0.0-7.3); Platelet Count 213 K/mm3 (140-440); Red Blood Count 4.85 M/mm3 (3.65-5.03)
[2021-09-25 18:15] LABS: BUN/Creatinine Ratio 10; Blood Urea Nitrogen 9 mg/dL (9-20); Calcium 10.1 mg/dL (8.4-10.2); Hemolysis Index 3
[2021-09-25 19:33] LABS: Bilirubin,Urine NEG (Negative); Blood,Urine NEG (Negative); Color,Urine Yellow (Yellow); Mucus,Urine FEW /HPF; Protein,Urine <15 mg/dL mg/dL (Negative)
[2021-09-25 19:45] LABS: Benzodiazepines Screen,Urine Negative; Methadone Screen,Urine Negative; Opiate Screen,Urine Negative
[2021-09-25 20:31] LABS: Amphetamine Screen,Urine Positive; Cannabinoid Screen,Urine Positive; Cocaine Screen,Urine Positive
--- NOTE | 2021-09-25 21:33 | Emergency Department Report ---
<JOSSE BURROWS - Last Filed: 09/25/21 21:29> ED Psych HPI - General Chief Complaint: Psych Stated Complaint: SI Time Seen by Provider: 09/25/21 20:47 Source: patient Mode of arrival: Ambulatory - History of Present Illness Initial Comments: 36 yo M with h/o anxiety and depression with bipolar and schizophrenia who presents with suicidal ideation that is been going on for the last 3 to 4 days. Pt is talking very fast and tangential. He says she has anxiety and depression all his life but worsen the last few days. Pt also reports suicidal ideation with no plan or any homicidal ideation. No other modifying or associated factors reported. - Related Data Home Medications Medication Instructions Recorded Confirmed Last Taken Trazodone HCl 150 PO DAILY 08/28/19 1 Month Ago ~07/29/19 Previous Rx's Medication Instructions Recorded Last Taken Type diphenhydrAMINE [Benadryl CAP] 25 mg PO DAILY PRN #15 capsule 02/02/20 Unknown Rx levoFLOXacin [Levaquin TAB] 500 mg PO QDAY #7 tablet 04/13/20 Unknown Rx Bismuth Subsalicylate 2 tab PO QID PRN #20 tab.chew 04/29/20 Unknown Rx [Pepto-Bismol] Famotidine [Pepcid] 20 mg PO BID #20 tablet 04/29/20 Unknown Rx Ondansetron [Zofran Odt] 4 mg PO Q8HR PRN #20 tab.rapdis 04/29/20 Unknown Rx buPROPion SR [Wellbutrin SR] 100 mg PO QDAY #30 08/17/21 Unknown Rx Bupropion HCl [Wellbutrin XL] 300 mg PO QAM #30 09/26/21 Unknown Rx Trihexyphenidyl (Nf) [Artane (Nf)] 5 mg PO TID #90 09/26/21 Unknown Rx Allergies Allergy/AdvReac Type Severity Reaction Status Date / Time benztropine [From Cogentin] Allergy Unknown Verified 09/01/21 02:34 fluphenazine [From Prolixin] Allergy Unknown Verified 09/01/21 02:34 haloperidol [From Haldol] Allergy Unknown Verified 09/01/21 02:34 ziprasidone [From Geodon] Allergy Unknown Verified 09/01/21 02:34 ED Review of Systems Comment: All other systems reviewed and negative Psychiatric: anxiety, suicidal thoughts ED Past Medical Hx - Past Medical History Previous Medical History?: Yes Hx Hypertension: Yes Hx Seizures: Yes Hx Psychiatric Treatment: Yes (anxiety, SI, Bipolar, Schizophrenia) Hx Asthma: Yes - Surgical History Past Surgical History?: Yes Additional Surgical History: Shoulder surgery - Social History Smoking Status: Never Smoker Substance Use Type: None - Medications Home Medications: Home Medications Medication Instructions Recorded Confirmed Last Taken Type Trazodone HCl 150 PO DAILY 08/28/19 1 Month Ago History ~07/29/19 diphenhydrAMINE [Benadryl CAP] 25 mg PO DAILY PRN #15 capsule 02/02/20 04/13/20 Unknown Rx levoFLOXacin [Levaquin TAB] 500 mg PO QDAY #7 tablet 04/13/20 Unknown Rx Bismuth Subsalicylate 2 tab PO QID PRN #20 tab.chew 04/29/20 Unknown Rx [Pepto-Bismol] Famotidine [Pepcid] 20 mg PO BID #20 tablet 04/29/20 Unknown Rx Ondansetron [Zofran Odt] 4 mg PO Q8HR PRN #20 tab.rapdis 04/29/20 Unknown Rx buPROPion SR [Wellbutrin SR] 100 mg PO QDAY #30 08/17/21 Unknown Rx Bupropion HCl [Wellbutrin XL] 300 mg PO QAM #30 09/26/21 Unknown Rx Trihexyphenidyl (Nf) [Artane (Nf)] 5 mg PO TID #90 09/26/21 Unknown Rx ED Physical Exam - General Limitations: No Limitations General appearance: alert, in no apparent distress, anxious - Head Head exam: Present: normal inspection - Eye Eye exam: Present: normal appearance - ENT ENT exam: Present: normal exam, normal orophraynx, mucous membranes dry - Neck Neck exam: Present: normal inspection - Respiratory Respiratory exam: Present: normal lung sounds bilaterally. Absent: respiratory distress, accessory muscle use - Cardiovascular Cardiovascular Exam: Present: regular rate, normal rhythm, normal heart sounds - GI/Abdominal GI/Abdominal exam: Present: soft, normal bowel sounds. Absent: distended, tenderness - Extremities Exam Extremities exam: Present: normal inspection, full ROM. Absent: tenderness, normal capillary refill - Neurological Exam Neurological exam: Present: alert, oriented X3 - Psychiatric Psychiatric exam: Present: agitated, anxious, other (very tangential ) - Skin Skin exam: Present: warm, normal color ED Medical Decision Making - Lab Data Result diagrams: 09/25/21 17:14 09/25/21 17:14 - Medical Decision Making here with suicidal ideation and noticed to be in likely acute psychosis-- pt very tangential and speaking very fast-- bedside nurse reports patient masturbating right in front of all-- this is likely acute psychosis base on this patient history and presentation-- but could not rule out side effect of illicit drug use, or any other psychiatry or organic medical conditions-- in other to rule those out will order routine psych and acute medical order such as UDS, CBC, CMP and UA and thyroid panel for any correctable cause. In the meantime will go ahead and give Ativan 2mg IV x 1 and PO olanzapine and have patient consulted by Mental Health for further evaluation and treatment.. ED Disposition Clinical Impression: Cocaine abuse, Noncompliance with medication regimen, Schizophrenia Disposition: HOME / SELF CARE / HOMELESS Is pt being admited?: No Does the pt Need Aspirin: No Condition: Stable Instructions: Schizophrenia, Stimulant Use Disorder-Cocaine Additional Instructions: Take the medication as prescribed. Follow-up with your doctor or doctor/clinic provided. Return if symptoms worsen as indicated by your discharge instructions. Professional and Agency Contacts To help [facility] Crises(30/10) [place] Crisis Line: Suicide Prevention Line: Crisis Text Line: Text START to 879545 Emergency: 911 Outpatient COMMUNITY Behavioral Health Resources: NICK: [facility] [address] [place], [place] [address] ALIZE: [facility] [address] [place] [address] TARAN: [facility] - [address] [place] [address] Sunday thru Sunday - 8am - 5pm ANGÉLICA: [facility] Address: [address], [place] [address] [facility] Address: [address] [place] [address]Sunday thru Sunday- 7am-2pm [facility] Address: [address] [place] [address] Sunday thru Sunday: 8:30AM-5PM OUTPATIENT MENTAL HEALTH RESOURCES [facility], [facility] Aretha Saha MD: [address] [place] A, [address] [place] [address] [place] [address] [place] [facility]: [facility] [address] [place] [address] [place] [address] [phone] [facility] Psychiatry: [facility] Healthcare: [address] [facility] [address] [facility] [place] [address] [facility] [address] [place] [facility]: Gavin Drummond MD: [address] [facility] [address] [facility] [id number] [facility]: [address] [place] [address] [phone] [place] CRISIS AND ACCESS LINE: In case of an emergency, please contact the following numbers: [place] Crisis and Access Line: Number: Crisis Text Line: (Text START) Number: 879420 Suicide Prevention Line: Number: Emergency Number: 911 SUBSTANCE ABUSE PROGRAMS: [facility] [place]: Location: [place], [place] [facility] Address: [address] [place] [address] [facility] Recovery: Address: [address] [place] [address] [facility] Adult Rehabilitation: Address: [address] [place] [address] [facility] Community: Address: [address] [place] [address] NOÉ [facility] Address: [address] [place] [address]. Please contact above numbers to attempt placement into free based program. Medicaid Programs: [facility]: Address: [address] [place] [address] [place] [facility]: Address: [address] [place] [address] HOMELESS RESOURCES: [facility]: Sydnie Isidro, FELICITA Address: [address] [place] [address] How do I join the [facility] housing program? Our housing programs are offered based on availability. If you are looking to participate in our housing program, simply call [phone] to find out if we have available space. Since we do receive many calls, please allow up to 48 hours for one of our housing specialists to return your call. If we do not have vacancies, we suggest calling the [facility] hotline at 211 for additional housing options. [facility] Admission from 8am to 10am Daily No intake until 04/05/20 Address: [address] [place] [address] [facility] WOMEN and FAMILY Admission Address: [address], [place] [address] [employer] [employer] Providers: Tony Montoya [phone] Address: [address] [place] [address] [place] [address] Mr. Parks: [phone] Fito Perez [phone] Ms. Rivera: [phone] Alice Martinez [phone] Ms. Godoy [phone] José Miguel [facility] [phone] Ms. Hui: [phone] [facility] [phone] [facility] Family Home: [facility] [phone] PC Prescriptions: Trihexyphenidyl (Nf) [Artane (Nf)] 5 mg PO TID #90 Bupropion HCl [Wellbutrin XL] 300 mg PO QAM #30 Referrals: PRIMARY CARE, [Primary Care Provider] - 3-5 Days <AGATA INMAN - Last Filed: 09/26/21 11:52> ED Review of Systems ROS: Stated complaint: SI Other details as noted in HPI ED Course Vital Signs 09/25/21 09/25/21 09/26/21 16:45 21:23 00:20 Temperature 97.9 F 98.9 F Pulse Rate 113 H 110 H 90 Respiratory 20 20 16 Rate Blood Pressure 150/110 129/97 [Right] O2 Sat by Pulse 100 97 98 Oximetry 09/26/21 09/26/21 08:17 08:51 Temperature 98.6 F Pulse Rate 80 Respiratory 18 Rate Blood Pressure 140/87 [Right] O2 Sat by Pulse 98 98 Oximetry ED Medical Decision Making - Lab Data Result diagrams: 09/25/21 17:14 09/25/21 17:14 Critical care attestation.: If time is entered above; I have spent that time in minutes in the direct care of this critically ill patient, excluding procedure time. ED Disposition Time of Disposition: 11:51
[2021-09-25] MEDS ORDERED: LORazepam 2 MG/ML VIAL IM ONE (21:44)
[2021-09-26 08:18] VITALS: BP 140/87
--- NOTE | 2021-09-26 10:56 | Consultation ---
History of Present Illness - Reason for Consult Consult date: 09/26/21 Reason for consult: hearing voices - History of Present Psychiatric Illness HPI: 36 yo M with h/o anxiety and depression with bipolar and schizophrenia who presents with suicidal ideation that is been going on for the last 3 to 4 days. Pt is talking very fast and tangential. He says she has anxiety and depression all his life but worsen the last few days. Pt also reports suicidal ideation with no plan or any homicidal ideation. No other modifying or associated factors reported. The patient was seen today. He is a known patient to me from several previous visits. He has a history of schizophrenia, non-compliance and polysubstance abuseThis patient was treated a few weeks ago over several days for the similar symptoms. He is calm and cooperative. The patient says he was "just at [facility] yesterday. I had a seizure and they sent me to [facility], but [facility] didn't send me back to [facility]." He denies SI/HI. He states he needs his medication. He says he lost his scripts. The patient says "I hear the t.v talking to me sometimes." PAST PSYCHIATRIC HISTORY: Diagnoses: Schizophrenia, Methamphetamine abuse Suicide attempts or Self-harm behavior:Yes Prior psychiatric hospitalizations: Yes Substance Abuse history: Meth, cocaine Previous psychiatric medications tried:Invega, Wellbutrin Outpatient treatment:Unknown PAST MEDICAL HISTORY: None reported or document Family Psychiatric History: None reported or documented SOCIAL HISTORY Marital Status: single Living Arrangements: Lives in a residential Employment Status: Unemployed Access to guns/weapons: Denies Education:12th grade History of Abuse: Denies Legal History: Denies REVIEW OF SYSTEMS Constitutional: Negative for weight loss ENT: Negative for stridor Respiratory: Negative for cough or hemoptysis All other systems reviewed and are negative MENTAL STATUS EXAMINATION General Appearance and Behavior: Age appropriate, wearing appropriate clothes, cooperative, polite with questioning, good eye contact, calm, polite Cooperation: cooperative Psychomotor Behavior: Psychomotor normal Mood: calm Affect and affective range: Congruent with stated mood Thought Process: goal directed Thought Content:Hallucinations Speech: Normal volume, Regular rate and rhythm Suicidal Ideation: Denies Homicidal Ideation: Denies Hallucination: Auditory Delusions: None elicited Impulse Control: limited Insight and Judgment: Limited Memory: intact Attention: attentive Orientation: Alert and oriented Assessment Schizophrenia Treatment Plan d/c 1013 Artane 5mg po daily Wellbutrin XL 300mg po daily PSYCHOTHERAPY: Supportive psychotherapy provided MEDICAL: Per primary team DELIRIUM PRECAUTIONS: Please re-orient patient frequently, keep lights on during the day, and minimize benzodiazepines and opiates as these medications could worsen patient's confusion. 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 The patient understands that if SI/HI are to arise he is to seek immediate assistance. Will sign off. Thank you for this consult. Case staffed with Dr. Kearney Medications and Allergies Allergies Allergy/AdvReac Type Severity Reaction Status Date / Time benztropine [From Cogentin] Allergy Unknown Verified 09/01/21 02:34 fluphenazine [From Prolixin] Allergy Unknown Verified 09/01/21 02:34 haloperidol [From Haldol] Allergy Unknown Verified 09/01/21 02:34 ziprasidone [From Geodon] Allergy Unknown Verified 09/01/21 02:34 Home Medications Medication Instructions Recorded Confirmed Last Taken Type Trazodone HCl 150 PO DAILY 08/28/19 1 Month Ago History ~07/29/19 diphenhydrAMINE [Benadryl CAP] 25 mg PO DAILY PRN #15 capsule 02/02/20 04/13/20 Unknown Rx levoFLOXacin [Levaquin TAB] 500 mg PO QDAY #7 tablet 04/13/20 Unknown Rx Bismuth Subsalicylate 2 tab PO QID PRN #20 tab.chew 04/29/20 Unknown Rx [Pepto-Bismol] Famotidine [Pepcid] 20 mg PO BID #20 tablet 04/29/20 Unknown Rx Ondansetron [Zofran Odt] 4 mg PO Q8HR PRN #20 tab.rapdis 04/29/20 Unknown Rx buPROPion SR [Wellbutrin SR] 100 mg PO QDAY #30 08/17/21 Unknown Rx Bupropion HCl [Wellbutrin XL] 300 mg PO QAM #30 09/26/21 Unknown Rx Trihexyphenidyl (Nf) [Artane (Nf)] 5 mg PO TID #90 09/26/21 Unknown Rx Active Meds: Active Medications Bupropion HCl (Bupropion Xl 150 Mg Tab) 300 mg PO QDAY FRANK Last Admin: 09/26/21 10:48 Dose: 300 mg Trihexyphenidyl HCl (Trihexyphenidyl 2 Mg Tab) 5 mg PO DAILY FRANK Last Admin: 09/26/21 10:48 Dose: 5 mg Mental Status Exam - Vital signs Last Vital Signs Temp 98.6 F 09/26/21 08:17 Pulse 80 09/26/21 08:17 Resp 18 09/26/21 08:17 BP 140/87 09/26/21 08:17 Pulse Ox 98 09/26/21 08:51 Results Result Diagrams: 09/25/21 17:14 09/25/21 17:14 Abnormal lab results 09/25/21 09/25/21 09/25/21 Range/Units 17:14 17:14 17:14 [place] % (Auto) 8.7 H (0.0-7.3) % Salicylates < 0.3 L (2.8-20.0) mg/dL Acetaminophen 5.0 L (10.0-30.0) ug/mL All other labs normal.
[2021-09-26] MEDS ORDERED: TRIHEXYPHENIDYL 2 MG TAB PO SCH (11:00)
[2021-09-26] MEDS ORDERED: buPROPion XL 150 MG TAB PO SCH (11:00)
--- NOTE | 2021-09-26 11:50 | Emergency Department Report ---
Blank Doc - Documentation Documentation: 36-year-old male with schizophrenia. 1013 discontinued by mental health. Dis charge recommended with refills and prescriptions. Vital signs and lab results reviewed. UDS positive for cocaine
== END 2021-09-26 12:49 | disposition home or self-care (01) ==
LOC: ED 14:18
DX: F14.10 Cocaine abuse, uncomplicated (principal); Z91.14 Patient's other noncompliance with medication regimen; F20.9 Schizophrenia, unspecified; F41.9 Anxiety disorder, unspecified; F32.9 Major depressive disorder, single episode, unspecified; R45.851 Suicidal ideations; I10 Essential (primary) hypertension; R56.9 Unspecified convulsions; J45.909 Unspecified asthma, uncomplicated; Z98.890 Other specified postprocedural states; Z88.8 Allergy status to other drugs, medicaments and biological substances
CPT/HCPCS: 36415; 80048; 80307; 81001; 85025; 96372; 99284; J2060; 80320; G0480

== ENCOUNTER 2021-09-30 15:34 | Emergency (ER) | payer SELFPAY ==
[2021-09-30 16:22] LABS: Basophils % (Auto) 0.7 % (0.0-1.8); Eosinophils # (Auto) 0.1 K/mm3 (0.0-0.4); Eosinophils % (Auto) 2.1 % (0.0-4.3); Hematocrit 44.3 % (35.5-45.6); Hemoglobin 14.6 gm/dl (11.8-15.2); Lymphocytes # (Auto) 0.6 K/mm3 (1.2-5.4); Lymphocytes % (Auto) 13.3 % (13.4-35.0); Mean Corpuscular HGB Conc 33 % (32-34); Mean Corpuscular Volume 94 fl (84-94); Monocytes # (Auto) 0.4 K/mm3 (0.0-0.8); Monocytes % (Auto) 7.8 % (0.0-7.3); Platelet Count 207 K/mm3 (140-440); Red Blood Count 4.73 M/mm3 (3.65-5.03); Red Cell Distribution Width 13.7 % (13.2-15.2)
[2021-09-30 16:45] LABS: BUN/Creatinine Ratio 12; Blood Urea Nitrogen 12 mg/dL (9-20); Calcium 9.4 mg/dL (8.4-10.2); Hemolysis Index 5
--- NOTE | 2021-09-30 16:51 | Emergency Department Report ---
ED General Adult HPI - General Chief complaint: Psych Stated complaint: SI PUI?: No Time Seen by Provider: 09/30/21 16:44 Source: patient Mode of arrival: Ambulatory Limitations: No Limitations - History of Present Illness Initial comments: This is a 36-year-old male with medical history of schizophrenia came in today with concerns of suicidal ideation which patient is that in the past he has cut himself. Patient also endorsed hallucination which the voices are telling him to kill himself. Patient denies any homicidal ideation. Patient denies other hallucinations tactile or visual. Patient denies any other symptoms. Patient denies fever chill night sweat dizziness blurred vision chest pain short of breath cough abdominal pain nausea vomiting diarrhea constipation joint pain muscle pain new rash and heat or cold intolerance. - Related Data Home Medications Medication Instructions Recorded Confirmed Last Taken Trazodone HCl 150 PO DAILY 08/28/19 1 Month Ago ~07/29/19 Previous Rx's Medication Instructions Recorded Last Taken Type diphenhydrAMINE [Benadryl CAP] 25 mg PO DAILY PRN #15 capsule 02/02/20 Unknown Rx levoFLOXacin [Levaquin TAB] 500 mg PO QDAY #7 tablet 04/13/20 Unknown Rx Bismuth Subsalicylate 2 tab PO QID PRN #20 tab.chew 04/29/20 Unknown Rx [Pepto-Bismol] Famotidine [Pepcid] 20 mg PO BID #20 tablet 04/29/20 Unknown Rx Ondansetron [Zofran Odt] 4 mg PO Q8HR PRN #20 tab.rapdis 04/29/20 Unknown Rx buPROPion SR [Wellbutrin SR] 100 mg PO QDAY #30 08/17/21 Unknown Rx Bupropion HCl [Wellbutrin XL] 300 mg PO QAM #30 09/26/21 Unknown Rx Trihexyphenidyl (Nf) [Artane (Nf)] 5 mg PO TID #90 09/26/21 Unknown Rx Bupropion HCl [Wellbutrin XL] 300 mg PO DAILY 30 Days #30 10/01/21 Unknown Rx Trihexyphenidyl (Nf) [Artane (Nf)] 5 mg PO DAILY 30 Days #30 10/01/21 Unknown Rx Allergies Allergy/AdvReac Type Severity Reaction Status Date / Time benztropine [From Cogentin] Allergy Unknown Verified 09/01/21 02:34 fluphenazine [From Prolixin] Allergy Unknown Verified 09/01/21 02:34 haloperidol [From Haldol] Allergy Unknown Verified 09/01/21 02:34 ziprasidone [From Geodon] Allergy Unknown Verified 09/01/21 02:34 ED Review of Systems ROS: Stated complaint: SI Other details as noted in HPI Comment: All other systems reviewed and negative Constitutional: no symptoms reported Eyes: as per HPI ENT: as per HPI Respiratory: no symptoms reported, see HPI Cardiovascular: as per HPI Endocrine: no symptoms reported, see HPI Gastrointestinal: as per HPI Musculoskeletal: as per HPI Skin: as per HPI Neurological: as per HPI Psychiatric: auditory hallucinations, suicidal thoughts. denies: anxiety, depression, visual hallucinations, homicidal thoughts Hematological/Lymphatic: as per HPI ED Past Medical Hx - Past Medical History Previous Medical History?: No Hx Hypertension: Yes Hx Seizures: Yes Hx Psychiatric Treatment: Yes (anxiety, SI, Bipolar, Schizophrenia) Hx Asthma: Yes - Surgical History Additional Surgical History: Shoulder surgery - Social History Smoking Status: Never Smoker Substance Use Type: None - Medications Home Medications: Home Medications Medication Instructions Recorded Confirmed Last Taken Type Trazodone HCl 150 PO DAILY 08/28/19 1 Month Ago History ~07/29/19 diphenhydrAMINE [Benadryl CAP] 25 mg PO DAILY PRN #15 capsule 02/02/20 04/13/20 Unknown Rx levoFLOXacin [Levaquin TAB] 500 mg PO QDAY #7 tablet 04/13/20 Unknown Rx Bismuth Subsalicylate 2 tab PO QID PRN #20 tab.chew 04/29/20 Unknown Rx [Pepto-Bismol] Famotidine [Pepcid] 20 mg PO BID #20 tablet 04/29/20 Unknown Rx Ondansetron [Zofran Odt] 4 mg PO Q8HR PRN #20 tab.rapdis 04/29/20 Unknown Rx buPROPion SR [Wellbutrin SR] 100 mg PO QDAY #30 08/17/21 Unknown Rx Bupropion HCl [Wellbutrin XL] 300 mg PO QAM #30 09/26/21 Unknown Rx Trihexyphenidyl (Nf) [Artane (Nf)] 5 mg PO TID #90 09/26/21 Unknown Rx Bupropion HCl [Wellbutrin XL] 300 mg PO DAILY 30 Days #30 10/01/21 Unknown Rx Trihexyphenidyl (Nf) [Artane (Nf)] 5 mg PO DAILY 30 Days #30 10/01/21 Unknown Rx ED Physical Exam - General Limitations: No Limitations General appearance: alert, in no apparent distress - Head Head exam: Present: atraumatic, normocephalic, normal inspection - Eye Eye exam: Present: normal appearance, PERRL, EOMI Pupils: Present: normal accommodation - ENT ENT exam: Present: normal exam - Neck Neck exam: Present: normal inspection - Respiratory Respiratory exam: Present: normal lung sounds bilaterally - Cardiovascular Cardiovascular Exam: Present: normal rhythm, tachycardia, normal heart sounds - GI/Abdominal GI/Abdominal exam: Present: soft - Extremities Exam Extremities exam: Present: normal inspection, full ROM, normal capillary refill - Back Exam Back exam: Present: normal inspection, full ROM ED Course Vital Signs 09/30/21 09/30/21 10/01/21 15:40 19:45 10:00 Temperature 97.6 F 98 F Pulse Rate 108 H 82 Respiratory 16 18 Rate Blood Pressure 107/74 Blood Pressure 128/78 [Left] O2 Sat by Pulse 96 100 100 Oximetry 10/01/21 10/01/21 11:21 12:47 Temperature 97 F L Pulse Rate 92 H Respiratory 18 Rate Blood Pressure Blood Pressure 119/77 [Left] O2 Sat by Pulse 100 100 Oximetry - Reevaluation(s) Reevaluation #1: 09/30/21 21:59 PATIENT SLEEPING COMFORTABLY IN BED AND IS MEDICALLY CLEARED FOR MENTAL HEALTH EVALUATION. ED Medical Decision Making - Lab Data Result diagrams: 09/30/21 15:49 09/30/21 15:49 Critical care attestation.: If time is entered above; I have spent that time in minutes in the direct care of this critically ill patient, excluding procedure time. ED Disposition Clinical Impression: Homelessness, Schizophrenia, Encounter for behavioral health screening Disposition: 01 HOME / SELF CARE / HOMELESS Is pt being admited?: No Condition: Good Additional Instructions: Please follow-up with an outpatient mental health specialist within the next week. Avoid consumption of alcohol, tobacco, smoke products and recreational drugs. Please return to the emergency room right away with new pain, worsened pain, migration of pain, projectile vomiting, change in mental status, confusion, inability tolerate liquid feeds, new, worsened or different symptoms not present on the initial emergency room evaluation professional and Agency Contacts To help [facility] (30/10) [place] Crisis Line: Suicide Prevention Line: Crisis Text Line: Text ``START to 737539 Emergency: 911 Outpatient COMMUNITY Behavioral Health Resources: [place]: [facility] [address], [place] [address] [address] Sunday thru Sunday - 8am - 5pm Call to schedule an assessment for mental health and substance abuse programs [facility] Address: [address] [place], [place] Sunday thrsunday- 7am-2pm [facility] Address: [address] [place] [address] Sunday thrsunday: 8:30AM-5PM Professional and Agency Contacts To help [facility] (30/10) [place] Crisis Line: Suicide Prevention Line: Crisis Text Line: Text START to 430511 Emergency: 911 Outpatient REPLACED BY [facility] Behavioral Health Resources: [place]: [facility] [address], [place] [address] [address] Sunday thru Sunday - 8am - 5pm Call to schedule an assessment for mental health and substance abuse programs [facility] Address: [address] [place], [place] Sunday thru Sunday- 7am-2pm [facility] Address: [address] [place], [place] Sunday thrsunday: 8:30AM-5PM HOMELESS RESOURCES: [facility] NEED HELP? If you are in need of help or know someone who does, please contact us at [email or web address] call , or come to our offices at [address] [place] [address], Sunday-Sunday beginning 9:30 AM-1:30 PM -Support services help people with getting identification and legal documents -Homeless verification letter -Facesheet (if needed) [facility] Males only Admission at 7am Sun to Sun Address: [address] [place] [address] Client Engagement [phone] Regular program admission occurs Sunday through Sunday at 7:00 amand operates on a first come, first serve basis.Because we cant anticipate program availability in advance andprogram spots are in high demand, we recommend a rriving early. Space fills up fast! Next steps can include: Assignment to a [facility] program bed Connection to and placement in a partner program, or Referral to a partner agency [facility] Admission at 4:30pm daily Address: [place] [address] [facility] Admission from 8am to 10am Daily Address: [place] [address] Prescriptions: Trihexyphenidyl (Nf) [Artane (Nf)] 5 mg PO DAILY 30 Days #30 Bupropion HCl [Wellbutrin XL] 300 mg PO DAILY 30 Days #30 [address]errals: [facility] [Outside] - 3-[address] [facility] [Outside] - 3-5 Days Time of Disposition: 21:09
--- NOTE | 2021-10-01 10:54 | Consultation ---
History of Present Illness - Reason for Consult Consult date: 10/01/21 Reason for consult: mental health evaluation - History of Present Psychiatric Illness The patient is a 36 year old male with history of Schizophrenia, and Methamphetamine abuse who present to the ED with suicidal ideation. The patient is well known to this establishment. The patient states he was recently discharged from [facility]. The patient states he is homeless and that he lost his script. The primary problem is social, and economic without a major psychiatric episode meeting criteria for acute inpatient psychiatric level of care at this time. PAST PSYCHIATRIC HISTORY: Diagnoses: Schizophrenia, Methamphetamine abuse Suicide attempts or Self-harm behavior:Yes Prior psychiatric hospitalizations: Yes Substance Abuse history: Meth, cocaine Previous psychiatric medications tried:Invega, Wellbutrin Outpatient treatment:Unknown PAST MEDICAL HISTORY: None reported or document Family Psychiatric History: None reported or documented SOCIAL HISTORY Marital Status: single Living Arrangements: Lives in a alf Employment Status: Unemployed Access to guns/weapons: Denies Education:12th grade History of Abuse: Denies Legal History: Denies REVIEW OF SYSTEMS Constitutional: Negative for weight loss ENT: Negative for stridor Respiratory: Negative for cough or hemoptysis All other systems reviewed and are negative MENTAL STATUS EXAMINATION General Appearance and Behavior: Age appropriate, wearing appropriate clothes, cooperative, polite with questioning, good eye contact, calm, polite Cooperation: cooperative Psychomotor Behavior: Psychomotor normal Mood: calm Affect and affective range: Congruent with stated mood Thought Process: goal directed Thought Content:Reality oriented Speech: Normal volume, Regular rate and rhythm Suicidal Ideation: Denies Homicidal Ideation: Denies Hallucination: Denies Delusions: None elicited Impulse Control: limited Insight and Judgment: Limited Memory: intact Attention: attentive Orientation: Alert and oriented Assessment Schizophrenia Treatment Plan d/c 1013 Artane 5mg po daily Wellbutrin XL 300mg po daily PSYCHOTHERAPY: Supportive psychotherapy provided MEDICAL: Per primary team DELIRIUM PRECAUTIONS: Please re-orient patient frequently, keep lights on during the day, and minimize benzodiazepines and opiates as these medications could worsen patient's confusion. 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 The patient understands that if SI/HI are to arise he is to seek immediate assistance. Will sign off. Thank you for this consult. Case staffed with Dr. Kearney Medications and Allergies Medications and Allergies Allergies Allergy/AdvReac Type Severity Reaction Status Date / Time benztropine [From Cogentin] Allergy Unknown Verified 09/01/21 02:34 fluphenazine [From Prolixin] Allergy Unknown Verified 09/01/21 02:34 haloperidol [From Haldol] Allergy Unknown Verified 09/01/21 02:34 ziprasidone [From Geodon] Allergy Unknown Verified 09/01/21 02:34 Home Medications Medication Instructions Recorded Confirmed Last Taken Type Trazodone HCl 150 PO DAILY 08/28/19 1 Month Ago History ~07/29/19 diphenhydrAMINE [Benadryl CAP] 25 mg PO DAILY PRN #15 capsule 02/02/20 04/13/20 Unknown Rx levoFLOXacin [Levaquin TAB] 500 mg PO QDAY #7 tablet 04/13/20 Unknown Rx Bismuth Subsalicylate 2 tab PO QID PRN #20 tab.chew 04/29/20 Unknown Rx [Pepto-Bismol] Famotidine [Pepcid] 20 mg PO BID #20 tablet 04/29/20 Unknown Rx Ondansetron [Zofran Odt] 4 mg PO Q8HR PRN #20 tab.rapdis 04/29/20 Unknown Rx buPROPion SR [Wellbutrin SR] 100 mg PO QDAY #30 08/17/21 Unknown Rx Bupropion HCl [Wellbutrin XL] 300 mg PO QAM #30 09/26/21 Unknown Rx Trihexyphenidyl (Nf) [Artane (Nf)] 5 mg PO TID #90 09/26/21 Unknown Rx Bupropion HCl [Wellbutrin XL] 300 mg PO DAILY 30 Days #30 10/01/21 Unknown Rx Trihexyphenidyl (Nf) [Artane (Nf)] 5 mg PO DAILY 30 Days #30 10/01/21 Unknown Rx Mental Status Exam - Vital signs Last Vital Signs Temp 98 F 09/30/21 19:45 Pulse 82 09/30/21 19:45 Resp 18 09/30/21 19:45 BP 128/78 09/30/21 19:45 Pulse Ox 100 09/30/21 19:45 Results Result Diagrams: 09/30/21 15:49 09/30/21 15:49 Abnormal lab results 09/30/21 09/30/21 09/30/21 Range/Units 15:49 15:49 15:49 Lymph % (Auto) (13.4-35.0) % [place] % (Auto) (0.0-7.3) % Lymph # (Auto) (1.2-5.4) K/mm3 Seg Neutrophils % (40.0-70.0) % Glucose 102 H (75-100) mg/dL Salicylates < 0.3 L (2.8-20.0) mg/dL Acetaminophen 5.0 L (10.0-30.0) ug/mL 09/30/21 Range/Units 15:49 Lymph % (Auto) 13.3 L (13.4-35.0) % [place] % (Auto) 7.8 H (0.0-7.3) % Lymph # (Auto) 0.6 L (1.2-5.4) K/mm3 Seg Neutrophils % 76.1 H (40.0-70.0) % Glucose (75-100) mg/dL Salicylates (2.8-20.0) mg/dL Acetaminophen (10.0-30.0) ug/mL All other labs normal.
--- NOTE | 2021-10-01 12:06 | Event Note ---
Date: 10/01/21 The patient was evaluated in the emergency department for symptoms described in the history of present illness. He/she was evaluated in the context of the global COVID-19 pandemic, which necessitated consideration that the patient might be at risk for infection with the virus that causes COVID-19. Institutional protocols and algorithms that pertain to the evaluation of patients at risk for COVID-19 are in a state of rapid change based on information released by regulatory bodies including the CDC and federal and state organizations. These policies and algorithms were followed during the patient's care in the emergency department. Please note that these policies, procedures and recommendations changed on a rapid basis. Laboratory studies, vital signs, nursing documentation, ER documentation, and psychiatric documentation are reviewed and appreciated. Nursing team reports no acute events this morning or concerns. The patient is awake and ambulating and does not appear to be in any acute distress. The patient was deemed medically suitable for psychiatric disposition and placement during his initial ER evaluation. The patient continues to remain medically suitable for psychiatric placement and disposition. The psychiatry team have advised that he does not meet criteria for 1013 hold or involuntary confinement. It appears that the patient is presenting to the department for secondary gain, such as food, snf and placement. Placing this patient on hold and 1013 will reinforce maladaptive coping mechanisms and behaviors. Patient is awake, alert, oriented, and exhibits decision-making capacity as per prior documentation and review of medical records. The patient will be given a list of homeless shelters, and he can present himself to a homeless snf at this time. He will be discharged with outpatient follow-up. Vital Signs 09/30/21 09/30/21 10/01/21 15:40 19:45 11:21 Temperature 97.6 F 98 F Pulse Rate 108 H 82 Respiratory 16 18 Rate Blood Pressure 107/74 Blood Pressure 128/78 [Left] O2 Sat by Pulse 96 100 100 Oximetry Lab Results 09/30/21 09/30/21 09/30/21 Range/Units 15:49 15:49 15:49 WBC (4.5-11.0) K/mm3 RBC (3.65-5.03) M/mm3 Hgb (11.8-15.2) gm/dl Hct (35.5-45.6) % MCV (84-94) fl MCH (28-32) pg MCHC (32-34) % RDW (13.2-15.2) % Plt Count (140-440) K/mm3 Lymph % (Auto) (13.4-35.0) % [place] % (Auto) (0.0-7.3) % Eos % (Auto) (0.0-4.3) % Baso % (Auto) (0.0-1.8) % Lymph # (Auto) (1.2-5.4) K/mm3 [place] # (Auto) (0.0-0.8) K/mm3 Eos # (Auto) (0.0-0.4) K/mm3 Baso # (Auto) (0.0-0.1) K/mm3 Seg Neutrophils % (40.0-70.0) % Seg Neutrophils # (1.8-7.7) K/mm3 Sodium 140 (137-145) mmol/L Potassium 3.7 (3.6-5.0) mmol/L Chloride 103.0 (98-107) mmol/L Carbon Dioxide 25 (22-30) mmol/L Anion Gap 16 mmol/L BUN 12 (9-20) mg/dL Creatinine 1.0 (0.8-1.3) mg/dL Estimated GFR > 60 ml/min BUN/Creatinine Ratio 12 % Glucose 102 H (75-100) mg/dL Calcium 9.4 (8.4-10.2) mg/dL Salicylates < 0.3 L (2.8-20.0) mg/dL Acetaminophen 5.0 L (10.0-30.0) ug/mL Plasma/Serum Alcohol (0-0.07) % 09/30/21 09/30/21 Range/Units 15:49 15:49 WBC 4.7 (4.5-11.0) K/mm3 RBC 4.73 (3.65-5.03) M/mm3 Hgb 14.6 (11.8-15.2) gm/dl Hct 44.3 (35.5-45.6) % MCV 94 (84-94) fl MCH 31 (28-32) pg MCHC 33 (32-34) % RDW 13.7 (13.2-15.2) % Plt Count 207 (140-440) K/mm3 Lymph % (Auto) 13.3 L (13.4-35.0) % [place] % (Auto) 7.8 H (0.0-7.3) % Eos % (Auto) 2.1 (0.0-4.3) % Baso % (Auto) 0.7 (0.0-1.8) % Lymph # (Auto) 0.6 L (1.2-5.4) K/mm3 [place] # (Auto) 0.4 (0.0-0.8) K/mm3 Eos # (Auto) 0.1 (0.0-0.4) K/mm3 Baso # (Auto) 0.0 (0.0-0.1) K/mm3 Seg Neutrophils % 76.1 H (40.0-70.0) % Seg Neutrophils # 3.6 (1.8-7.7) K/mm3 Sodium (137-145) mmol/L Potassium (3.6-5.0) mmol/L Chloride (98-107) mmol/L Carbon Dioxide (22-30) mmol/L Anion Gap mmol/L BUN (9-20) mg/dL Creatinine (0.8-1.3) mg/dL Estimated GFR ml/min BUN/Creatinine Ratio % Glucose (75-100) mg/dL Calcium (8.4-10.2) mg/dL Salicylates (2.8-20.0) mg/dL Acetaminophen (10.0-30.0) ug/mL Plasma/Serum Alcohol < 0.01 (0-0.07) %
[2021-10-01 12:48] VITALS: BP 119/77
== END 2021-10-01 12:48 | disposition home or self-care (01) ==
LOC: ED 15:34
DX: F20.9 Schizophrenia, unspecified (principal); Z13.30 Encounter for screening examination for mental health and behavioral disorders, unspecified; Z59.00 Homelessness unspecified; I10 Essential (primary) hypertension; R56.9 Unspecified convulsions; F31.9 Bipolar disorder, unspecified; R45.851 Suicidal ideations; J45.909 Unspecified asthma, uncomplicated; Z98.890 Other specified postprocedural states; Z88.8 Allergy status to other drugs, medicaments and biological substances
CPT/HCPCS: 36415; 80048; 80320; 85025; 99283; G0480

== ENCOUNTER 2021-10-02 10:11 | Emergency (ER) | payer SELFPAY ==
[2021-10-02 12:01] LABS: Eosinophils # (Auto) 0.1 K/mm3 (0.0-0.4); Hematocrit 38.8 % (35.5-45.6); Hemoglobin 13.1 gm/dl (11.8-15.2); Mean Corpuscular HGB Conc 34 % (32-34); Mean Corpuscular Volume 93 fl (84-94); Monocytes # (Auto) 0.4 K/mm3 (0.0-0.8); Monocytes % (Auto) 9.2 % (0.0-7.3); Platelet Count 212 K/mm3 (140-440); Red Blood Count 4.16 M/mm3 (3.65-5.03); Red Cell Distribution Width 14.1 % (13.2-15.2)
[2021-10-02 12:03] LABS: Amphetamine Screen,Urine Negative; Benzodiazepines Screen,Urine Negative; Methadone Screen,Urine Negative; Opiate Screen,Urine Negative
[2021-10-02 12:11] LABS: Bilirubin,Urine NEG (Negative); Blood,Urine NEG (Negative); Color,Urine Straw (Yellow); Protein,Urine <15 mg/dL mg/dL (Negative); Urobilinogen,Urine < 2.0 mg/dL (<2.0)
[2021-10-02 12:14] LABS: RBC,Urine < 1.0 /HPF (0.0-6.0)
[2021-10-02 12:15] LABS: Cannabinoid Screen,Urine Positive; Cocaine Screen,Urine Positive
[2021-10-02 12:24] LABS: Alanine Aminotransferase 10 units/L (7-56); Albumin 4.4 g/dL (3.9-5); BUN/Creatinine Ratio 11; Blood Urea Nitrogen 9 mg/dL (9-20); Calcium 9.5 mg/dL (8.4-10.2); Hemolysis Index 8
--- NOTE | 2021-10-02 16:33 | Emergency Department Report ---
ED Psych HPI - General Chief Complaint: Medical Clearance Stated Complaint: MEDICAL CLEARENCE NEEDED FOR [facility] Time Seen by Provider: 10/02/21 15:48 Source: patient Mode of arrival: Ambulatory Limitations: No Limitations - History of Present Illness Initial Comments: 36-year-old male with a past medical history of schizophrenia presents to the hospital questing medical clearance for [facility] admission. Patient went to bed was prior to ED arrival and was encouraged to come to the ER for clearance. Patient states he needs to go to [facility] because he needs to be placed on his medication. As per medical record review patient was just discharged yesterday after medical and psychiatric clearance. He was prescribed several medications but cannot tell me what happened to the prescription. Patient endorses auditory hallucination and suicidal ideation with plan to stab himself. This is the patient's third visit to the hospital this month for same complaints. As per medical record patient has endorsed being homeless and abuses cocaine and marijuana. - Related Data Home Medications Medication Instructions Recorded Confirmed Last Taken Trazodone HCl 150 PO DAILY 08/28/19 1 Month Ago ~07/29/19 Previous Rx's Medication Instructions Recorded Last Taken Type diphenhydrAMINE [Benadryl CAP] 25 mg PO DAILY PRN #15 capsule 02/02/20 Unknown Rx levoFLOXacin [Levaquin TAB] 500 mg PO QDAY #7 tablet 04/13/20 Unknown Rx Bismuth Subsalicylate 2 tab PO QID PRN #20 tab.chew 04/29/20 Unknown Rx [Pepto-Bismol] Famotidine [Pepcid] 20 mg PO BID #20 tablet 04/29/20 Unknown Rx Ondansetron [Zofran Odt] 4 mg PO Q8HR PRN #20 tab.rapdis 04/29/20 Unknown Rx buPROPion SR [Wellbutrin SR] 100 mg PO QDAY #30 08/17/21 Unknown Rx Trihexyphenidyl (Nf) [Artane (Nf)] 5 mg PO TID #90 09/26/21 Unknown Rx Bupropion HCl [Wellbutrin XL] 300 mg PO DAILY 30 Days #30 10/01/21 Unknown Rx Bupropion HCl [Wellbutrin XL] 300 mg PO QAM #30 tab 10/02/21 Unknown Rx Trihexyphenidyl (Nf) [Artane (Nf)] 5 mg PO DAILY 30 Days #30 tab 10/02/21 Unknown Rx Allergies Allergy/AdvReac Type Severity Reaction Status Date / Time benztropine [From Cogentin] Allergy Unknown Verified 09/01/21 02:34 fluphenazine [From Prolixin] Allergy Unknown Verified 09/01/21 02:34 haloperidol [From Haldol] Allergy Unknown Verified 09/01/21 02:34 ziprasidone [From Geodon] Allergy Unknown Verified 09/01/21 02:34 ED Review of Systems ROS: Stated complaint: MEDICAL CLEARENCE NEEDED FOR [facility] Other details as noted in HPI Comment: All other systems reviewed and negative ED Past Medical Hx - Past Medical History Hx Hypertension: Yes Hx Seizures: Yes Hx Psychiatric Treatment: Yes (anxiety, SI, Bipolar, Schizophrenia) Hx Asthma: Yes - Surgical History Additional Surgical History: Shoulder surgery - Social History Smoking Status: Current Every Day Smoker Substance Use Type: None - Medications Home Medications: Home Medications Medication Instructions Recorded Confirmed Last Taken Type Trazodone HCl 150 PO DAILY 08/28/19 1 Month Ago History ~07/29/19 diphenhydrAMINE [Benadryl CAP] 25 mg PO DAILY PRN #15 capsule 02/02/20 04/13/20 Unknown Rx levoFLOXacin [Levaquin TAB] 500 mg PO QDAY #7 tablet 04/13/20 Unknown Rx Bismuth Subsalicylate 2 tab PO QID PRN #20 tab.chew 04/29/20 Unknown Rx [Pepto-Bismol] Famotidine [Pepcid] 20 mg PO BID #20 tablet 04/29/20 Unknown Rx Ondansetron [Zofran Odt] 4 mg PO Q8HR PRN #20 tab.rapdis 04/29/20 Unknown Rx buPROPion SR [Wellbutrin SR] 100 mg PO QDAY #30 08/17/21 Unknown Rx Trihexyphenidyl (Nf) [Artane (Nf)] 5 mg PO TID #90 09/26/21 Unknown Rx Bupropion HCl [Wellbutrin XL] 300 mg PO DAILY 30 Days #30 10/01/21 Unknown Rx Bupropion HCl [Wellbutrin XL] 300 mg PO QAM #30 tab 10/02/21 Unknown Rx Trihexyphenidyl (Nf) [Artane (Nf)] 5 mg PO DAILY 30 Days #30 tab 10/02/21 Unknown Rx ED Physical Exam - General Limitations: No Limitations - Other Other exam information: General: No acute distress Head: Atraumatic Eyes: normal appearance ENT: Moist mucous membranes Neck: Normal appearance, no midline tenderness Chest: Clear to auscultation bilaterally CV: Regular rate and rhythm Abdomen: Soft, normal bowel sounds, nontender, nondistended, no rebound or guarding Back: Normal inspection Extremity: Normal inspection, full range of motion Neuro: Alert O x 3, no facial asymmetry, stuttering speech, no gross motor sensory deficit Psych: Appropriate behavior Skin: No rash ED Course Vital Signs 10/02/21 10/02/21 10:17 16:52 Temperature 97.9 F Pulse Rate 96 H 85 Respiratory 18 18 Rate Blood Pressure 128/91 Blood Pressure 127/85 [Right] O2 Sat by Pulse 100 99 Oximetry ED Medical Decision Making - Lab Data Result diagrams: 10/02/21 11:13 10/02/21 11:13 Lab Results 10/02/21 10/02/21 10/02/21 Range/Units 11:13 11:13 11:13 WBC 4.0 L (4.5-11.0) K/mm3 RBC 4.16 (3.65-5.03) M/mm3 Hgb 13.1 (11.8-15.2) gm/dl Hct 38.8 (35.5-45.6) % MCV 93 (84-94) fl MCH 32 (28-32) pg MCHC 34 (32-34) % RDW 14.1 (13.2-15.2) % Plt Count 212 (140-440) K/mm3 Lymph % (Auto) 26.0 (13.4-35.0) % [place] % (Auto) 9.2 H (0.0-7.3) % Eos % (Auto) 3.0 (0.0-4.3) % Baso % (Auto) 1.0 (0.0-1.8) % Lymph # (Auto) 1.0 L (1.2-5.4) K/mm3 [place] # (Auto) 0.4 (0.0-0.8) K/mm3 Eos # (Auto) 0.1 (0.0-0.4) K/mm3 Baso # (Auto) 0.0 (0.0-0.1) K/mm3 Seg Neutrophils % 60.8 (40.0-70.0) % Seg Neutrophils # 2.4 (1.8-7.7) K/mm3 Sodium 139 (137-145) mmol/L Potassium 3.7 (3.6-5.0) mmol/L Chloride 102.0 (98-107) mmol/L Carbon Dioxide 27 (22-30) mmol/L Anion Gap 14 mmol/L BUN 9 (9-20) mg/dL Creatinine 0.8 (0.8-1.3) mg/dL Estimated GFR > 60 ml/min BUN/Creatinine Ratio 11 % Glucose 86 (75-100) mg/dL Calcium 9.5 (8.4-10.2) mg/dL Total Bilirubin 0.20 (0.1-1.2) mg/dL AST 12 (5-40) units/L ALT 10 (7-56) units/L Alkaline Phosphatase 50 (35-129) units/L Total Protein 6.9 (6.3-8.2) g/dL Albumin 4.4 (3.9-5) g/dL Albumin/Globulin Ratio 1.8 % Urine Color (Yellow) Urine Turbidity (Clear) Urine pH (5.0-7.0) Ur Specific [place] (1.003-1.030) Urine Protein (Negative) mg/dL Urine Glucose (UA) (Negative) mg/dL Urine Ketones (Negative) mg/dL Urine Blood (Negative) Urine Nitrite (Negative) Urine Bilirubin (Negative) Urine Urobilinogen (<2.0) mg/dL Ur Leukocyte Esterase (Negative) Urine WBC (Auto) (0.0-6.0) /HPF Urine RBC (Auto) (0.0-6.0) /HPF Salicylates < 0.3 L (2.8-20.0) mg/dL Urine Opiates Screen Urine Methadone Screen Acetaminophen (10.0-30.0) ug/mL Ur Barbiturates Screen Ur Phencyclidine Scrn Ur Amphetamines Screen U Benzodiazepines Scrn Urine Cocaine Screen U Marijuana (THC) Screen Drugs of Abuse Note Plasma/Serum Alcohol (0-0.07) % 10/02/21 10/02/21 10/02/21 Range/Units 11:13 11:13 Unknown WBC (4.5-11.0) K/mm3 RBC (3.65-5.03) M/mm3 Hgb (11.8-15.2) gm/dl Hct (35.5-45.6) % MCV (84-94) fl MCH (28-32) pg MCHC (32-34) % RDW (13.2-15.2) % Plt Count (140-440) K/mm3 Lymph % (Auto) (13.4-35.0) % [place] % (Auto) (0.0-7.3) % Eos % (Auto) (0.0-4.3) % Baso % (Auto) (0.0-1.8) % Lymph # (Auto) (1.2-5.4) K/mm3 [place] # (Auto) (0.0-0.8) K/mm3 Eos # (Auto) (0.0-0.4) K/mm3 Baso # (Auto) (0.0-0.1) K/mm3 Seg Neutrophils % (40.0-70.0) % Seg Neutrophils # (1.8-7.7) K/mm3 Sodium (137-145) mmol/L Potassium (3.6-5.0) mmol/L Chloride (98-107) mmol/L Carbon Dioxide (22-30) mmol/L Anion Gap mmol/L BUN (9-20) mg/dL Creatinine (0.8-1.3) mg/dL Estimated GFR ml/min BUN/Creatinine Ratio % Glucose (75-100) mg/dL Calcium (8.4-10.2) mg/dL Total Bilirubin (0.1-1.2) mg/dL AST (5-40) units/L ALT (7-56) units/L Alkaline Phosphatase (35-129) units/L Total Protein (6.3-8.2) g/dL Albumin (3.9-5) g/dL Albumin/Globulin Ratio % Urine Color Straw (Yellow) Urine Turbidity Clear (Clear) Urine pH 6.0 (5.0-7.0) Ur Specific [place] 1.005 (1.003-1.030) Urine Protein <15 mg/dl (Negative) mg/dL Urine Glucose (UA) Neg (Negative) mg/dL Urine Ketones Neg (Negative) mg/dL Urine Blood Neg (Negative) Urine Nitrite Neg (Negative) Urine Bilirubin Neg (Negative) Urine Urobilinogen < 2.0 (<2.0) mg/dL Ur Leukocyte Esterase Neg (Negative) Urine WBC (Auto) 0.0 (0.0-6.0) /HPF Urine RBC (Auto) < 1.0 (0.0-6.0) /HPF Salicylates (2.8-20.0) mg/dL Urine Opiates Screen Urine Methadone Screen Acetaminophen 5.0 L (10.0-30.0) ug/mL Ur Barbiturates Screen Ur Phencyclidine Scrn Ur Amphetamines Screen U Benzodiazepines Scrn Urine Cocaine Screen U Marijuana (THC) Screen Drugs of Abuse Note Plasma/Serum Alcohol < 0.01 (0-0.07) % 10/02/21 Range/Units Unknown WBC (4.5-11.0) K/mm3 RBC (3.65-5.03) M/mm3 Hgb (11.8-15.2) gm/dl Hct (35.5-45.6) % MCV (84-94) fl MCH (28-32) pg MCHC (32-34) % RDW (13.2-15.2) % Plt Count (140-440) K/mm3 Lymph % (Auto) (13.4-35.0) % [place] % (Auto) (0.0-7.3) % Eos % (Auto) (0.0-4.3) % Baso % (Auto) (0.0-1.8) % Lymph # (Auto) (1.2-5.4) K/mm3 [place] # (Auto) (0.0-0.8) K/mm3 Eos # (Auto) (0.0-0.4) K/mm3 Baso # (Auto) (0.0-0.1) K/mm3 Seg Neutrophils % (40.0-70.0) % Seg Neutrophils # (1.8-7.7) K/mm3 Sodium (137-145) mmol/L Potassium (3.6-5.0) mmol/L Chloride (98-107) mmol/L Carbon Dioxide (22-30) mmol/L Anion Gap mmol/L BUN (9-20) mg/dL Creatinine (0.8-1.3) mg/dL Estimated GFR ml/min BUN/Creatinine Ratio % Glucose (75-100) mg/dL Calcium (8.4-10.2) mg/dL Total Bilirubin (0.1-1.2) mg/dL AST (5-40) units/L ALT (7-56) units/L Alkaline Phosphatase (35-129) units/L Total Protein (6.3-8.2) g/dL Albumin (3.9-5) g/dL Albumin/Globulin Ratio % Urine Color (Yellow) Urine Turbidity (Clear) Urine pH (5.0-7.0) Ur Specific [place] (1.003-1.030) Urine Protein (Negative) mg/dL Urine Glucose (UA) (Negative) mg/dL Urine Ketones (Negative) mg/dL Urine Blood (Negative) Urine Nitrite (Negative) Urine Bilirubin (Negative) Urine Urobilinogen (<2.0) mg/dL Ur Leukocyte Esterase (Negative) Urine WBC (Auto) (0.0-6.0) /HPF Urine RBC (Auto) (0.0-6.0) /HPF Salicylates (2.8-20.0) mg/dL Urine Opiates Screen Negative Urine Methadone Screen Negative Acetaminophen (10.0-30.0) ug/mL Ur Barbiturates Screen Negative Ur Phencyclidine Scrn Negative Ur Amphetamines Screen Negative U Benzodiazepines Scrn Negative Urine Cocaine Screen Positive U Marijuana (THC) Screen Positive Drugs of Abuse Note Disclamer Plasma/Serum Alcohol (0-0.07) % - Medical Decision Making 36-year-old male presents once again requesting admission to [facility]. Mental health assessment below. Patient does not meet 1013 criteria. He continues to abuse drugs and is noncompliant with his meds. 10/02/21 16:47 - MH Refrigeration Brazer/Solderer's Note by GLORIA DICKENS Acct Num: [id number] : 1985 Patient Age: 36 Pt is a 36 yo AA male presenting with SI w/o plan, Polysubstance abuse. During ax, pt presented as with cooperative behaviors, calm mood and congruent affect. The pt is well known to ED Staff. Pt was d/c from Psych ED 09/26/21, 10/01/21. Pt denies Si, HI. Pt states "I need medical clearance to go to [facility] cause I have mental health problems". Pt reports auditory hallucinations non command. Pt reports dx of Paranoid Schizophrenia. Pt reports cocaine and meth abuse. Pt reports smoking several crack rocks 10/01/2021. Pt reports onset age 18. Pt reports meth use since 2014. Pt reports using one gram 10/01/21. Pt denies alcohol use or abuse Pt reports homelessness. Pt denies legal issues. 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 Recommendations: At this time pt presents with SI w/o plan, Polysubstance abuse. Pt does not meet criteria for IP [place]. OP resources placed in chart. Initialized on 10/02/21 16:47 - END OF NOTE Patient provided a copy of his labs to take to [facility] if they determined that he requires admission. He is out of 1013 at this time. He is provided a prescription for the meds he recently - Differential Diagnosis Malingering, secondary gain, suicidal, psychosis, noncompliance, schizophre Critical Care Time: No Critical care attestation.: If time is entered above; I have spent that time in minutes in the direct care of this critically ill patient, excluding procedure time. ED Disposition Clinical Impression: Schizophrenia, Polysubstance abuse, Homelessness, History of medication noncompliance Disposition: 01 HOME / SELF CARE / HOMELESS Is pt being admited?: No Condition: Stable Instructions: Substance Use Disorder and Mental Illness, Schizophrenia Additional Instructions: Professional and Agency Contacts To help Resolve Crises(30/10) [place] Crisis Line: Suicide Prevention Line: Crisis Text Line: Text START to 655962 Emergency: 911 Outpatient COMMUNITY Behavioral Health Resources: DEKALB: [facility] [address] [place], [place] [address] MITCHELL: [facility] [address] [place] [address] INA: [facility] - [address] [place] [address] Sunday thru Sunday - 8am - 5pm ANGÉLICA: [facility] Address: [address], [place] [address] [facility] Address: [address] [place], [place] Sunday thru Sunday- 7am-2pm [facility] Address: [address] [place] [address] Sunday thru Sunday: 8:30AM-5PM Prescriptions: Trihexyphenidyl (Nf) [Artane (Nf)] 5 mg PO DAILY 30 Days #30 tab Bupropion HCl [Wellbutrin XL] 300 mg PO QAM #30 tab Referrals: [facility] [Provider Group] - 3-5 Days PRIMARY CARE, [Primary Care Provider] - 3-5 Days Time of Disposition: 17:39
[2021-10-02 18:18] VITALS: BP 135/69
== END 2021-10-02 18:18 | disposition home or self-care (01) ==
LOC: ED 10:11
DX: F20.9 Schizophrenia, unspecified (principal); F19.10 Other psychoactive substance abuse, uncomplicated; Z59.00 Homelessness unspecified; Z91.14 Patient's other noncompliance with medication regimen; I10 Essential (primary) hypertension; R56.9 Unspecified convulsions; J45.909 Unspecified asthma, uncomplicated; F17.200 Nicotine dependence, unspecified, uncomplicated; Z91.09 Other allergy status, other than to drugs and biological substances; Z79.899 Other long term (current) drug therapy
CPT/HCPCS: 36415; 80053; 80307; 80320; 81001; 85025; 99284; G0480

== ENCOUNTER 2021-11-07 21:44 | Emergency (ER) | payer SELFPAY ==
[2021-11-07 22:40] VITALS: BP 100/75
--- NOTE | 2021-11-08 05:00 | Emergency Department Report ---
ED Eye Problem HPI - General Chief complaint: Eye Problems Stated complaint: EYES INFECTED/SINUS/RASH ON ARM Source: patient Mode of arrival: Ambulatory Limitations: No Limitations - History of Present Illness Initial comments: Patient is a 36-year-old -Lithuanian male with a history of bipolar disorder, paranoid schizophrenia, anxiety and depression who presents to the ED with complaint of acute onset persistent bilateral eye pain with thick purulent discharge and under redness for the last 2 days. Patient states that the eyes have been matted with purulent discharge. Patient denies vision loss, dizziness, syncope, fever, chills, nausea and vomiting, nasal and sinus congestion, sore throat, headache, neck pain, ear pain, chest pain or shortness of breath or cough. MD chief complaint: eye pain (bilateral), eye redness (bilateral), other (purulent discharge with matting) -: Sudden, days(s) (2) Onset Description: gradual, awoke with symptoms Location: right eye Place: home If Injury: none Eye Symptoms: burning, redness, pain, itching, discharge Severity: severe Severity scale (0 -10): 7 If Pain, Quality: sharp, aching Consistency: constant Context: other (diffuse itchy rashes) Associated Symptoms: none, other (diffuse itchy rashes) Treatments Prior to Arrival: none - Related Data Patient Tetanus UTD: Yes Home Medications Medication Instructions Recorded Confirmed Last Taken Trazodone HCl 150 PO DAILY 08/28/19 1 Month Ago ~07/29/19 Previous Rx's Medication Instructions Recorded Last Taken Type diphenhydrAMINE [Benadryl CAP] 25 mg PO DAILY PRN #15 capsule 02/02/20 Unknown Rx levoFLOXacin [Levaquin TAB] 500 mg PO QDAY #7 tablet 04/13/20 Unknown Rx Bismuth Subsalicylate 2 tab PO QID PRN #20 tab.chew 04/29/20 Unknown Rx [Pepto-Bismol] Famotidine [Pepcid] 20 mg PO BID #20 tablet 04/29/20 Unknown Rx Ondansetron [Zofran Odt] 4 mg PO Q8HR PRN #20 tab.rapdis 04/29/20 Unknown Rx buPROPion SR [Wellbutrin SR] 100 mg PO QDAY #30 08/17/21 Unknown Rx Trihexyphenidyl (Nf) [Artane (Nf)] 5 mg PO TID #90 09/26/21 Unknown Rx Bupropion HCl [Wellbutrin XL] 300 mg PO DAILY 30 Days #30 10/01/21 Unknown Rx Bupropion HCl [Wellbutrin XL] 300 mg PO QAM #30 tab 10/02/21 Unknown Rx Trihexyphenidyl (Nf) [Artane (Nf)] 5 mg PO DAILY 30 Days #30 tab 10/02/21 Unknown Rx Gentamicin 0.3% Ophth Soln 1 drops OP Q4H #5 ml 11/08/21 Unknown Rx Triamcinolone Acetonide 1 applic TP Q12H #1 tube 11/08/21 Unknown Rx [Triamcinolone Acetonide Oint 0.5%] Allergies Allergy/AdvReac Type Severity Reaction Status Date / Time benztropine [From Cogentin] Allergy Unknown Verified 09/01/21 02:34 fluphenazine [From Prolixin] Allergy Unknown Verified 09/01/21 02:34 haloperidol [From Haldol] Allergy Unknown Verified 09/01/21 02:34 ziprasidone [From Geodon] Allergy Unknown Verified 09/01/21 02:34 ED Review of Systems ROS: Stated complaint: EYES INFECTED/SINUS/RASH ON ARM Other details as noted in HPI Constitutional: denies: chills, fever Eyes: eye pain (Bilateral), eye discharge (Bilateral). denies: vision change ENT: denies: ear pain, throat pain Respiratory: denies: cough, shortness of breath, wheezing Cardiovascular: denies: chest pain, palpitations Endocrine: no symptoms reported Gastrointestinal: denies: abdominal pain, nausea, diarrhea Genitourinary: denies: urgency, dysuria Musculoskeletal: denies: back pain, joint swelling, arthralgia Skin: denies: rash, lesions Neurological: denies: headache, weakness, paresthesias Psychiatric: denies: anxiety, depression Hematological/Lymphatic: denies: easy bleeding, easy bruising ED Past Medical Hx - Past Medical History Previous Medical History?: Yes Hx Hypertension: Yes Hx Seizures: Yes Hx Psychiatric Treatment: Yes (anxiety, SI, Bipolar, Schizophrenia) Hx Asthma: Yes - Surgical History Additional Surgical History: Shoulder surgery - Social History Smoking Status: Current Every Day Smoker Substance Use Type: None - Medications Home Medications: Home Medications Medication Instructions Recorded Confirmed Last Taken Type Trazodone HCl 150 PO DAILY 08/28/19 1 Month Ago History ~07/29/19 diphenhydrAMINE [Benadryl CAP] 25 mg PO DAILY PRN #15 capsule 02/02/20 04/13/20 Unknown Rx levoFLOXacin [Levaquin TAB] 500 mg PO QDAY #7 tablet 04/13/20 Unknown Rx Bismuth Subsalicylate 2 tab PO QID PRN #20 tab.chew 04/29/20 Unknown Rx [Pepto-Bismol] Famotidine [Pepcid] 20 mg PO BID #20 tablet 04/29/20 Unknown Rx Ondansetron [Zofran Odt] 4 mg PO Q8HR PRN #20 tab.rapdis 04/29/20 Unknown Rx buPROPion SR [Wellbutrin SR] 100 mg PO QDAY #30 08/17/21 Unknown Rx Trihexyphenidyl (Nf) [Artane (Nf)] 5 mg PO TID #90 09/26/21 Unknown Rx Bupropion HCl [Wellbutrin XL] 300 mg PO DAILY 30 Days #30 10/01/21 Unknown Rx Bupropion HCl [Wellbutrin XL] 300 mg PO QAM #30 tab 10/02/21 Unknown Rx Trihexyphenidyl (Nf) [Artane (Nf)] 5 mg PO DAILY 30 Days #30 tab 10/02/21 Unknown Rx Gentamicin 0.3% Ophth Soln 1 drops OP Q4H #5 ml 11/08/21 Unknown Rx Triamcinolone Acetonide 1 applic TP Q12H #1 tube 11/08/21 Unknown Rx [Triamcinolone Acetonide Oint 0.5%] ED Physical Exam - General Limitations: No Limitations General appearance: alert, in no apparent distress - Head Head exam: Present: atraumatic, normocephalic, normal inspection - Eye Eye exam: Present: normal appearance, PERRL, EOMI, other (Thick purulent discharge bilaterally, bilateral erythematous conjunctiva with matting) Pupils: Present: normal accommodation - ENT ENT exam: Present: normal exam, normal orophraynx, mucous membranes moist, TM's normal bilaterally, normal external ear exam - Neck Neck exam: Present: normal inspection, full ROM. Absent: tenderness - Respiratory Respiratory exam: Present: normal lung sounds bilaterally. Absent: respiratory distress, wheezes, rales, rhonchi, chest wall tenderness, accessory muscle use, decreased breath sounds, other - Cardiovascular Cardiovascular Exam: Present: regular rate, normal rhythm, normal heart sounds. Absent: systolic murmur, diastolic murmur, rubs, gallop - GI/Abdominal GI/Abdominal exam: Present: soft, normal bowel sounds. Absent: tenderness, guarding, rebound, rigid, hyperactive bowel sounds, hypoactive bowel sounds, organomegaly - Extremities Exam Extremities exam: Present: normal inspection, full ROM, normal capillary refill - Back Exam Back exam: Present: normal inspection, full ROM. Absent: tenderness, CVA tenderness (R), CVA tenderness (L), muscle spasm, paraspinal tenderness, vertebral tenderness - Neurological Exam Neurological exam: Present: alert, oriented X3, CN II-XII intact, normal gait, reflexes normal - Psychiatric Psychiatric exam: Present: normal affect, normal mood - Skin Skin exam: Present: warm, dry, intact, rash (Mildly erythematous dry maculopapular rashes on antecubital joints of upper extremities bilaterally), erythema. Absent: normal color, urticaria, vesicles ED Course Vital Signs 11/07/21 22:36 Temperature 97.8 F Pulse Rate 85 Respiratory 18 Rate Blood Pressure 100/75 [Right] O2 Sat by Pulse 96 Oximetry ED Medical Decision Making - Medical Decision Making This is a 36-year-old -Lithuanian male with a history of bipolar disorder, paranoid schizophrenia, anxiety and depression who presents to the ED with complaint of acute onset persistent bilateral eye pain with thick purulent discharge and under redness for the last 2 days. Patient states that the eyes have been matted with purulent discharge. In the ED, patient is alert and oriented x3 and is not in any distress. Patient is hemodynamically stable. Patient was discharged home on medications based on the physical exam findings of bilateral bacterial conjunctivitis with chronic eczema. Patient was discharged home and advised to follow-up with his primary care physician in 7 to 10 days for reevaluation. Patient is advised return to the ED immediately if symptoms get worse. - Differential Diagnosis Bacterial conjunctivitis; chronic eczema; viral conjunctivitis Critical care attestation.: If time is entered above; I have spent that time in minutes in the direct care of this critically ill patient, excluding procedure time. ED Disposition Clinical Impression: Acute bacterial conjunctivitis of both eyes, Chronic eczema Disposition: 01 HOME / SELF CARE / HOMELESS Is pt being admited?: No Does the pt Need Aspirin: No Condition: Stable Instructions: Eczema, How to Use Eye Drops and Eye Ointments, Bacterial Conjunctivitis, Adult, [id number] Additional Instructions: Take medication as advised, apply the medication to the affected eyes as advised, follow-up with your primary care physician in 7 to 10 days for reevaluation. Return to the ED immediately if symptoms get worse. Prescriptions: Gentamicin 0.3% Ophth Soln 1 drops OP Q4H #5 ml Triamcinolone Acetonide [Triamcinolone Acetonide Oint 0.5%] 1 applic TP Q12H #1 tube Referrals: [facility] [Provider Group] - 7-10 days Time of Disposition: 05:03 Print Language: UKRAINIAN
== END 2021-11-08 07:10 | disposition home or self-care (01) ==
LOC: ED 21:44
DX: H10.33 Unspecified acute conjunctivitis, bilateral (principal); L30.9 Dermatitis, unspecified; I10 Essential (primary) hypertension; R56.9 Unspecified convulsions; F41.9 Anxiety disorder, unspecified; J45.909 Unspecified asthma, uncomplicated; F17.200 Nicotine dependence, unspecified, uncomplicated; Z91.09 Other allergy status, other than to drugs and biological substances; Z79.899 Other long term (current) drug therapy
CPT/HCPCS: 99282